=== PATIENT | female | born 1970 | race Caucasian/White ===

== ENCOUNTER 2020-01-24 22:36 | Emergency (ER) | payer OTHER ==
--- OUTSIDE RECORDS SUMMARY | 2020-01-24 22:37 | XMS REPORT | Summary of Care ---
:1970 Author Organization [facility] [place] [address] Care Team Providers Name Role Phone Daniele Brothers MD Primary Care Provider Reason for Visit Reason Comments Blurred Vision Encounter Details Date Type Department Care Team Description [facility] Ophthalmolo gy [address] [place] [address] [place] [address] [phone] Allergies No Known Allergiesdocumented as of this encounter (statuses as of 01/22/2020) Medications Medication Sig Dispensed Refills Start Date End Date Status besifloxacin Place 1 Drop into 5 mL 3 01/18/2020 Active (BESIVANCE) 0.6 % the right eye 6 ophthalmic times daily. Shake suspension well before instillation gentamicin Place 1 Drop into 10 mL 3 01/18/2020 Active (GARAMYCIN) 0.3 % the right eye every ophthalmic solution hour. tobramycin (TOBREX) INSTILL 1 GTT IN THE 0 0 Active 0.3 % ophthalmic RIGHT EYE Q 30 solution MINUTES documented as of this encounter (statuses as of 01/22/2020) Active Problems No known active problemsdocumented as of this encounter (statuses as of 01/22/2020) Social History Tobacco Use Types Packs/Day Years Used Date Current Every Day Smoker Smokeless Tobacco: Never Used Sex Assigned at Date Recorded Not on file documented as of this encounter Last Filed Vital Signs Not on filedocumented in this encounter Patient Instructions Patient InstructionsNeha Giles MD - 01/22/2020 1:10 PM CDT Besivance 3 x per day Tobramycin 4 x per day Return in about one week documented in this encounter Progress Notes Neha Giles MD - 01/22/2020 1:10 PM CDT Microbial keratitis much improved documented in this encounter Plan of Treatment Health Maintenance Due Date Last Done Comments MAMMOGRAM ANNUAL 1970 TETANUS SHOT (ADULT) 01/31/1987 HIV SCREENING 01/31/1990 CERVICAL CANCER SCREENING 3 YEAR FOLLOW UP 01/31/1993 FLU VACCINE > 6 MONTHS 12/02/2019 ZOSTER VACCINE (1 of 2) 01/31/2022 documented as of this encounter Results Not on filedocumented in this encounter Visit Diagnoses Diagnosis Keratitis - Primary Unspecified keratitis documented in this encounter Insurance Payer Benefit Plan / Subscriber ID Effective Dates Phone Addre ss Type Group [employer] OPEN ACCESS [id number] 2009-Present [address] POS HMO/POS/EPO/PPO - [place] [employer] [id number] documented as of this encounter
--- OUTSIDE RECORDS SUMMARY | 2020-01-24 22:37 | XMS REPORT | Summary of Care ---
:1970 Author Organization [facility] [place] [address] Care Team Providers Name Role Phone Unavailable Primary Care Provider Unavailable Reason for Visit Reason Comments Eye Pain Encounter Details Date Type Department Care Team Description 01/17/2020 Office Visit [facility] Neha Quispe MD Eye Pain Ophthalmology [address] [facility] [id number] [place] [address] [phone] Allergies No Known Allergiesdocumented as of this encounter (statuses as of 01/17/2020) Medications Not on filedocumented as of this encounter (statuses as of 01/17/2020) Active Problems Not on filedocumented as of this encounter (statuses as of 01/17/2020) Social History Tobacco Use Types Packs/Day Years Used Date Current Every Day Smoker Smokeless Tobacco: Never Used Sex Assigned at Date Recorded Not on file documented as of this encounter Last Filed Vital Signs Not on filedocumented in this encounter Patient Instructions Patient InstructionsNeha Giles MD - 01/17/2020 1:10 PM CDT Gentamicin one drop every hour While awake Besivance One drop 6 x per day documented in this encounter Progress Notes Neha Giles MD - 01/17/2020 1:10 PM CDT Microbial keratitis Patient States that she continues to have pain and blurred vision OD However, she is on a good regimen and likey to respond soon Will place TSCL to enhance drug delivery and to decrease surface pain documented in this encounter Plan of Treatment Name Type Priority Associated Diagnoses Order S chedule CA FIT CONTACT LENS [place] CA Charge Routine Keratitis Order ed: 01/17/2020 OCULAR SURFACE DISEASE Health Maintenance Due Date Last Done Comments [...] Addre ss Type Group [employer] OPEN ACCESS [id number] 2009-Present [id number] POS HMO/POS/EPO/PPO - [place] [employer] [phone] documented as of this encounter
--- NOTE | 2020-01-24 22:58 | EDPHYS ---
Physician Documentation [facility] Name: Elena Mcintyre Age: 49 yrs Sex: Female : 1970 Arrival Date: 01/24/2020 Time: 22:38 Bed 8 Private MD: ISAC Physician Raymundo Ernandez HPI: 01/23 22:51 This 49 yrs old Female presents to ER via EMS with complaints of vomiting cherri blood. 22:51 The patient presents with abdominal pain abdominal distention in the epigastric area, cherri in the upper abdomen. Onset: The symptoms/episode began/occurred 3 day(s) ago. The patient presents to the emergency department with nausea, vomiting, described as coffee ground in nature. Onset: The symptoms/episode began/occurred 3 day(s) ago. Possible causes: gi bleed, pancreatitis, etoh abuse. The symptoms are aggravated by nothing. The symptoms are alleviated by nothing. The patient presents to the emergency department vomiting blood, a moderate amount, coffee. Abdominal pain: located in the epigastric area, right upper quadrant and left upper quadrant. Modifying factors: The symptoms are alleviated by remaining still, the symptoms are aggravated by food, movement, PO intake. Associated signs and symptoms: Pertinent positives: dizziness at rest, dizziness when standing, vomiting. PHYSICIAN PEDIATRICIAN: 22:44 LMP N/A - Hysterectomy jb4 Historical: - Allergies: 22:44 Codeine; jb4 - Home Meds: 22:44 None [Active]; jb4 - PMHx: 22:44 Pancreatitis; jb4 - PSHx: 22:44 Hysterectomy; jb4 - Immunization history:: Adult Immunizations up to date. - Social history:: Smoking status: Patient reports the use of cigarette tobacco products, smokes one-half pack cigarettes per day, Patient/guardian denies using alcohol, street drugs. - Family history:: not pertinent. - Hospitalizations: : No recent hospitalization is reported. ROS: 22:51 Constitutional: Negative for fever, chills, and weight loss, Eyes: Negative for injury, cherri pain, redness, and discharge, ENT: Negative for injury, pain, and discharge, Neck: Negative for injury, pain, and swelling, Cardiovascular: Negative for chest pain, palpitations, and edema, Respiratory: Negative for shortness of breath, cough, wheezing, and pleuritic chest pain, Back: Negative for injury and pain, : Negative for injury, bleeding, discharge, and swelling, MS/Extremity: Negative for injury and deformity, Neuro: Negative for headache, weakness, numbness, tingling, and seizure, Psych: Negative for depression, anxiety, suicide ideation, homicidal ideation, and hallucinations, Allergy/Immunology: Negative for hives, rash, and allergies, Endocrine: Negative for neck swelling, polydipsia, polyuria, polyphagia, and marked weight changes, Hematologic/Lymphatic: Negative for swollen nodes, abnormal bleeding, and unusual bruising. 22:51 Respiratory: Positive for cough. 22:51 Abdomen/GI: Positive for abdominal pain, nausea and vomiting, abdominal cramps, abdominal distension, black/tarry stool. Exam: 22:51 Constitutional: This is a well developed, well nourished patient who is awake, alert, cherri and in no acute distress. Head/Face: Normocephalic, atraumatic. Eyes: Pupils equal round and reactive to light, extra-ocular motions intact. Lids and lashes normal. Conjunctiva and sclera are non-icteric and not injected. Cornea within normal limits. Periorbital areas with no swelling, redness, or edema. ENT: Nares patent. No nasal discharge, no septal abnormalities noted. Tympanic membranes are normal and external auditory canals are clear. Oropharynx with no redness, swelling, or masses, exudates, or evidence of obstruction, uvula midline. Mucous membranes moist. Neck: Trachea midline, no thyromegaly or masses palpated, and no cervical lymphadenopathy. Supple, full range of motion without nuchal rigidity, or vertebral point tenderness. No Meningismus. Chest/axilla: Normal chest wall appearance and motion. Nontender with no deformity. No lesions are appreciated. Cardiovascular: Regular rate and rhythm with a normal S1 and S2. No gallops, murmurs, or rubs. Normal PMI, no JVD. No pulse deficits. Respiratory: Lungs have equal breath sounds bilaterally, clear to auscultation and percussion. No rales, rhonchi or wheezes noted. No increased work of breathing, no retractions or nasal flaring. Back: No spinal tenderness. No costovertebral tenderness. Full range of motion. Pelvic Exam: Normal external genitalia. Speculum exam with closed cervical os, no discharge or bleeding noted. Bimanual exam with normal adnexa, no adnexal or cervical motion tenderness. Normal uterus. Female : Normal external genitalia. MS/ Extremity: Pulses equal, no cyanosis. Neurovascular intact. Full, normal range of motion. Neuro: Awake and alert, GCS 15, oriented to person, place, time, and situation. Cranial nerves II-XII grossly intact. Motor strength 5/5 in all extremities. Sensory grossly intact. Cerebellar exam normal. Normal gait. Psych: Awake, alert, with orientation to person, place and time. Behavior, mood, and affect are within normal limits. 22:51 Abdomen/GI: Inspection: distension, that is mild, Bowel sounds: normal, Palpation: mild abdominal tenderness, moderate abdominal tenderness, in the epigastric area, right upper quadrant and left upper quadrant, Liver: no appreciated palpable abnormalities, Hernia: not appreciated. Vital Signs: 22:42 BP 94 / 60; Pulse 101; Resp 16; Temp 98.7(TE); Pulse Ox 98% on R/A; Weight 34.02 kg jb4 (R); Height 4 ft. 9 in. (144.78 cm); Pain 8/10; 23:30 BP 91 / 58; Pulse 101; Resp 16; Pulse Ox 100% on R/A; jb4 01/24 00:00 BP 97 / 63; Pulse 98; Resp 16; Pulse Ox 100% on R/A; jb4 01:00 BP 90 / 60; Pulse 100; Resp 16; Pulse Ox 100% on R/A; jb4 02:45 BP 100 / 66; Pulse 101; Resp 16; Pulse Ox 100% on R/A; 4 01/23 22:42 Body Mass Index 16.23 (34.02 kg, 144.78 cm) [facility] MDM: 01/23 22:43 Patient medically screened. cherri 22:55 Differential diagnosis: cholecystitis, Cholelithiasis, GI Bleed, non-specific abd pain, cherri pancreatitis. Data reviewed: vital signs, nurses notes, lab test result(s), EKG, radiologic studies, CT scan, plain films. Data interpreted: monitoring manager: rate is 101 beats/min, Pulse oximetry:. Test interpretation: by ED physician or midlevel provider: ECG, plain radiologic studies. Counseling: I had a detailed discussion with the patient and/or guardian regarding: the historical points, exam findings, and any diagnostic results supporting the discharge/admit diagnosis, lab results, the need to transfer to another facility, for higher level of care, [facility] does not immediately have the required specialist. 01/23 22:50 Order name: Basic Metabolic Panel; Complete Time: 00:19 [facility] 01/23 22:50 Order name: CBC with Diff; Complete Time: 01:36 [facility] 01/23 22:50 Order name: LFT's; Complete Time: 00:19 [facility] 01/23 22:50 Order name: Magnesium; Complete Time: 00:19 [facility] 01/23 22:50 Order name: NT PRO-BNP; Complete Time: 00:19 [facility] 01/23 22:50 Order name: Troponin (emerg Dept Use Only); Complete Time: 00:19 [facility] 01/23 22:50 Order name: XRAY Chest (1 view) [facility] 01/23 22:50 Order name: Lipase; Complete Time: 00:19 [facility] 01/23 22:50 Order name: Type And Screen [facility] 01/23 22:50 Order name: CT Abd/Pelvis - IV Contrast Only [facility] 01/23 23:28 Order name: Manual Differential; Complete Time: 01:36 [facility] 01/23 22:50 Order name: EKG; Complete Time: 22:51 [facility] 01/23 22:50 Order name: Cardiac monitoring; Complete Time: 23:44 [facility] 01/23 22:50 Order name: EKG - Nurse/Tech; Complete Time: 23:44 [facility] 01/23 22:50 Order name: IV Saline Lock; Complete Time: 22:56 [facility] 01/23 22:50 Order name: Labs collected and sent; Complete Time: 22:56 [facility] 01/23 22:50 Order name: O2 Per Protocol; Complete Time: 22:56 [facility] 01/23 22:50 Order name: O2 Sat Monitoring; Complete Time: 22:56 [facility] 01/23 22:58 Order name: IV Saline Lock - Large Bore; Complete Time: 23:07 [facility] Administered Medications: 23:09 Drug: ProTONIX 40 mg Route: IVP; Site: left forearm; mg2 01/24 00:00 Follow up: Response: No adverse reaction 4 01/23 23:09 Drug: Thiamine 100 mg Route: IV; Rate: bolus; Site: left forearm; mg2 23:15 Follow up: Response: No adverse reaction; IV Status: Completed infusion jb4 23:09 Drug: Zofran (Ondansetron) 4 mg Route: IVP; Site: left forearm; [facility] 23:30 Follow up: Response: No adverse reaction; Nausea is decreased jb4 23:38 Drug: ProTONIX 8 mg/hr Route: IV; Rate: 25 ml/hr; Site: right hand; [facility] 01/24 03:02 Follow up: Response: No adverse reaction; IV Status: Infusion continued upon transfer [facility] 01/23 23:39 Drug: NS 0.9% 500 ml Route: IV; Rate: bolus; Site: right hand; [facility] 01/24 00:00 Follow up: Response: No adverse reaction; IV Status: Completed infusion [facility] 01/23 23:39 Drug: NS 0.9% 1000 ml Route: IV; Rate: 125 ml/hr; Site: right hand; [facility] 01/24 03:00 Follow up: Response: No adverse reaction; IV Status: Infusion continued upon transfer jb4 01:27 Drug: Potassium Chloride 20 mEq Route: IV; Rate: per protocol; Site: right hand; jb4 02:59 Follow up: Response: No adverse reaction; IV Status: Infusion continued upon transfer jb4 02:10 Drug: Meropenem 750 mg Route: IV; Rate: per protocol; Site: right hand; [facility] 02:59 Follow up: Response: No adverse reaction; IV Status: Infusion continued upon transfer jb4 02:45 Drug: Zofran (Ondansetron) 4 mg Route: IVP; Site: right hand; jb4 02:58 Follow up: Response: No adverse reaction; Nausea is decreased jb4 02:48 Drug: fentaNYL (PF) 25 mcg Route: IVP; Site: right hand; jb4 02:58 Follow up: Response: No adverse reaction; Pain is decreased; RASS: Alert and Calm (0) 4 02:49 Not Given (Pt transferred prior to administration): Potassium Chloride 20 mEq IV at per [facility] protocol once; administer over 1-2 hours 02:50 Not Given (Pt transferred prior to administration.): fentaNYL (PF) 25 mcg IVP once; 4 RASS on ADMIN: Combtv4, Very Agttd3, Agttd2, Rstlss1, AlertClm0, Drwsy-1, Lt Sdtn-2, Mod Sdtn-3, Dp Sdtn-4, UnArsble-5 Disposition: 01/24/20 22:57 Transfer ordered to [facility]. Diagnosis are Abdominal tenderness - enterocolitis, Gastrointestinal hemorrhage, unspecified - upper, Alcohol abuse, Anemia, unspecified, Hypokalemia, Cholecystitis, Gastritis, unspecified, with bleeding. - Reason for transfer: Higher level of care. - Accepting physician is to [facility]. - Condition is Stable. - Problem is new. - Symptoms have improved. Signatures: Dispatcher [employer] EDRaymundo Suarez MD MD cha Bryson, James RN RN jb4 Shmuel Muñoz RN RN mg2 Corrections: (The following items were deleted from the chart) 00:21 01/23 22:57 01/24/2020 22:57 Transfer ordered to [facility]. cherri Diagnosis is Abdominal tenderness; Gastrointestinal hemorrhage, unspecified - upper; Alcohol abuse. Reason for transfer: Higher level of care. Accepting physician is to [facility]. Condition is Stable. Problem is new. Symptoms have improved. [facility] 01/24 01:40 00:21 01/24/2020 22:57 Transfer ordered to [facility]. [facility] Diagnosis is Abdominal tenderness; Gastrointestinal hemorrhage, unspecified - upper; Alcohol abuse; Anemia, unspecified; Hypokalemia. Reason for transfer: Higher level of care. Accepting physician is to [facility]. Condition is Stable. Problem is new. Symptoms have improved. [facility] 03:02 01:40 01/24/2020 22:57 Transfer ordered to [facility]. jb4 Diagnosis is Abdominal tenderness - enterocolitis; Gastrointestinal hemorrhage, unspecified - upper; Alcohol abuse; Anemia, unspecified; Hypokalemia; Cholecystitis; Gastritis, unspecified, with bleeding. Reason for transfer: Higher level of care. Accepting physician is to [facility]. Condition is Stable. Problem is new. Symptoms have improved. [facility]
--- NOTE | 2020-01-24 22:58 | ER ---
Nurse's Notes [facility] Name: Elena Mcintyre Age: 49 yrs Sex: Female : 1970 Arrival Date: 01/24/2020 Time: 22:38 Bed 8 Private MD: Diagnosis: Abdominal tenderness-enterocolitis;Gastrointestinal hemorrhage, unspecified-upper;Alcohol abuse;Anemia, unspecified;Hypokalemia;Cholecystitis;Gastritis, unspecified, with bleeding Presentation: 01/23 22:42 Chief complaint: EMS states: Pt reports Vomiting up blood and having bloody stool. Pt jb4 was vomiting up what appeared to be coffee ground emesis and had black tarry stool. Coronavirus screen: Client denies travel out of the [place] in the last 14 days. At this time, the client does not indicate any symptoms associated with coronavirus-19. Ebola Screen: No symptoms or risks identified at this time. Initial Sepsis Screen: Does the patient meet any 2 criteria? HR > 90 bpm. Yes Does the patient have a suspected source of infection? No. Patient's initial sepsis screen is negative. Risk Assessment: Do you want to hurt yourself or someone else? Patient reports no desire to harm self or others. Onset of symptoms was January 24, 2020. Transition of care: patient was not received from another setting of care. 22:42 Method Of Arrival: EMS: [facility] 22:42 Acuity: ROBE 2 jb4 STUNT WOMAN: 22:44 LMP N/A - Hysterectomy jb4 Historical: - Allergies: 22:44 Codeine; jb4 - Home Meds: 22:44 None [Active]; jb4 - PMHx: 22:44 Pancreatitis; jb4 - PSHx: 22:44 Hysterectomy; jb4 - Immunization history:: Adult Immunizations up to date. - Social history:: Smoking status: Patient reports the use of cigarette tobacco products, smokes one-half pack cigarettes per day, Patient/guardian denies using alcohol, street drugs. - Family history:: not pertinent. - Hospitalizations: : No recent hospitalization is reported. Screenin:44 Abuse screen: Denies threats or abuse. Nutritional screening: No deficits noted. jb4 Tuberculosis screening: No symptoms or risk factors identified. Fall Risk None identified. Assessment: 22:44 General: Appears in no apparent distress. uncomfortable, Behavior is calm, cooperative, jb4 appropriate for age. Pain: Complains of pain in abdomen Pain radiates to back Pain currently is 8 out of 10 on a pain scale. Quality of pain is described as crampy, solid. Neuro: Level of Consciousness is awake, alert, obeys commands, Oriented to person, place, time, situation. Cardiovascular: Patient's skin is warm and dry. Respiratory: Airway is patent Respiratory effort is even, unlabored, Respiratory pattern is regular, symmetrical. GI: Reports lower abdominal pain, upper abdominal pain, bloody stool, nausea, vomiting. : No signs and/or symptoms were reported regarding the genitourinary system. EENT: No signs and/or symptoms were reported regarding the EENT system. Derm: Skin is intact, Skin is pink, warm \T\ dry. Musculoskeletal: Circulation, motion, and sensation intact. Range of motion: intact in all extremities. 23:42 Reassessment: Patient appears in no apparent distress at this time. Patient and/or jb4 family updated on plan of care and expected duration. Pain level reassessed. Patient is alert, oriented x 3, equal unlabored respirations, skin warm/dry/pink. 01/24 00:30 Reassessment: Patient appears in no apparent distress at this time. Patient and/or jb4 family updated on plan of care and expected duration. Pain level reassessed. Patient is alert, oriented x 3, equal unlabored respirations, skin warm/dry/pink. 01:30 Reassessment: Patient appears in no apparent distress at this time. Patient and/or jb4 family updated on plan of care and expected duration. Pain level reassessed. Patient is alert, oriented x 3, equal unlabored respirations, skin warm/dry/pink. 02:57 Reassessment: Patient appears in no apparent distress at this time. Patient and/or jb4 family updated on plan of care and expected duration. Pain level reassessed. Patient is alert, oriented x 3, equal unlabored respirations, skin warm/dry/pink. Pt transferred out Via [facility]. Vital Signs: 01/23 22:42 BP 94 / 60; Pulse 101; Resp 16; Temp 98.7(TE); Pulse Ox 98% on R/A; Weight 34.02 kg jb4 (R); Height 4 ft. 9 in. (144.78 cm); Pain 8/10; 23:30 BP 91 / 58; Pulse 101; Resp 16; Pulse Ox 100% on R/A; jb4 01/24 00:00 BP 97 / 63; Pulse 98; Resp 16; Pulse Ox 100% on R/A; jb4 01:00 BP 90 / 60; Pulse 100; Resp 16; Pulse Ox 100% on R/A; jb4 02:45 BP 100 / 66; Pulse 101; Resp 16; Pulse Ox 100% on R/A; jb4 01/23 22:42 Body Mass Index 16.23 (34.02 kg, 144.78 cm) jb4 ED Course: 01/23 22:38 Patient arrived in ED. am2 22:42 Chad De La Cruz, RADHA is Primary Nurse. jb4 22:43 Raymundo Ernandez MD is Attending Physician. [facility] 22:44 Triage completed. jb4 22:44 Arm band placed on right wrist. jb4 22:44 Patient has correct armband on for positive identification. Bed in low position. Call jb4 light in reach. Side rails up X 1. 22:50 Inserted saline lock: 20 gauge in left forearm, using aseptic technique. Blood mg2 collected. 22:56 Maintain EMS IV. Dressing intact. Site clean \T\ dry. Gauge \T\ site: 22 \T\RH. mg2 01/24 00:10 initiated a transfer with Shagufta Sutherland from the [facility]. 2 00:31 XRAY Chest (1 view) In Process Unspecified. EDMS 00:53 CT Abd/Pelvis - IV Contrast Only In Process Unspecified. EDMS 01:08 administrative approval given by Shagufta Sutherland/ patient has been accepted to the [address] bed 960/ Dr. Mcdowell has accepted the patient in transfer/ report to be called to [phone]. 02:58 No provider procedures requiring assistance completed. Patient transferred, IV remains jb4 in place. Administered Medications: 01/23 23:09 Drug: ProTONIX 40 mg Route: IVP; Site: left forearm; mg2 01/24 00:00 Follow up: Response: No adverse reaction jb4 01/23 23:09 Drug: Thiamine 100 mg Route: IV; Rate: bolus; Site: left forearm; mg2 23:15 Follow up: Response: No adverse reaction; IV Status: Completed infusion jb4 23:09 Drug: Zofran (Ondansetron) 4 mg Route: IVP; [place] [facility] [place] Follow up: Response: No adverse reaction; Nausea is decreased jb4 23:38 Drug: ProTONIX 8 mg/hr Route: IV; Rate: 25 ml/hr; Site: [place] hand; [facility] [place] 03:02 Follow up: Response: No adverse reaction; IV Status: Infusion continued upon transfer [facility] 01/23 23:39 Drug: NS 0.9% 500 ml Route: IV; Rate: bolus; Site: [place] [facility] [place] 00:00 Follow up: Response: No adverse reaction; IV Status: Completed infusion [facility] 01/23 23:39 Drug: NS 0.9% 1000 ml Route: IV; Rate: 125 ml/hr; Site: [place] [facility] [place] 03:00 Follow up: Response: No adverse reaction; IV Status: Infusion continued upon transfer jb4 01:27 Drug: Potassium Chloride 20 mEq Route: IV; Rate: per protocol; Site: right hand; jb4 02:59 Follow up: Response: No adverse reaction; IV Status: Infusion continued upon transfer jb4 02:10 Drug: Meropenem 750 mg Route: IV; Rate: per protocol; Site: [place] [facility] [place] 02:[place] Follow up: Response: No adverse reaction; IV Status: Infusion continued upon transfer jb4 02:45 Drug: Zofran (Ondansetron) 4 mg Route: IVP; Site: right hand; jb4 02:58 Follow up: Response: No adverse reaction; Nausea is decreased jb4 02:48 Drug: fentaNYL (PF) 25 mcg Route: IVP; Site: right hand; jb4 02:58 Follow up: Response: No adverse reaction; Pain is decreased; RASS: Alert and Calm (0) 4 02:49 Not Given (Pt transferred prior to administration): Potassium Chloride 20 mEq IV at per [facility] protocol once; administer over 1-2 hours 02:50 Not Given (Pt transferred prior to administration.): fentaNYL (PF) 25 mcg IVP once; 4 RASS on ADMIN: Combtv4, Very Agttd3, Agttd2, Rstlss1, AlertClm0, Drwsy-1, Lt Sdtn-2, Mod Sdtn-3, Dp Sdtn-4, UnArsble-5 Outcome: 01/23 22:57 ER care complete, transfer ordered by . cherri 01/24 02:58 Transferred by ground EMS [facility]. to [facility], [facility] [place], Transfer form jb4 completed. X-rays sent w/ patient. Condition: stable Discharge instructions given to patient, Instructed on the need for transfer, Demonstrated understanding of instructions. 03:02 Patient left the ED. jb4 Signatures: Dispatcher [employer] EDRaymundo Suarez MD MD cha Bryson, James, RN RN jb4 Jessica Wheeler 2 Cayetano Muñiz 2 Shmuel Muñoz RN RN mg2
[2020-01-24] MEDS ORDERED: THIAMINE 200 MG/2 ML INJ ONE (23:11)
[2020-01-24] MEDS ORDERED: NA CHLORIDE 0.9% 1,000 ML ONE (23:12)
[2020-01-24] MEDS ORDERED: NA CHLORIDE 0.9% 250 ML ONE (23:12)
[2020-01-24] MEDS ORDERED: ONDANSETRON 4 MG/2 ML VIAL ONE (23:12)
[2020-01-24] MEDS ORDERED: PANTOPRAZOLE 40 MG INJ ONE (23:12)
[2020-01-24 23:16] LABS: Absolute Lymphocytes (CBC) 0.6 K/uL (0.7-4.9); Basophils % 0.3 % (0-1.3); Lymphocytes % 6.1 % (15.3-44.8); MPV 9.2 fL (7.6-11.3); RBC Red Blood Cell Count 2.28 M/uL (3.86-4.86)
[2020-01-25 00:06] LABS: Bilirubin Direct 3.5 mg/dL (0-0.2); Bilirubin Total 4.3 mg/dL (0.2-1.0); Protein, Total 5.2 g/dL (6.4-8.2); Troponin (Emerg Dept Use Only) 0.4 ng/mL (0.0-0.045)
[2020-01-25 00:18] LABS: Potassium 2.8 mmol/L (3.5-5.1)
[2020-01-25 01:06] LABS: Blood Morphology Comment NOTED (NOT SEEN); Macrocytosis 1+; Platelet Estimate ADEQ
[2020-01-25] MEDS ORDERED: KCL 20 MEQ/100 mL IVPB 20 MEQ/100 ML BAG IV ONE (01:30)
[2020-01-25] MEDS ORDERED: FENTANYL CITR 100 MCG/2 ML ONE (02:51)
[2020-01-25] MEDS ORDERED: ONDANSETRON 4 MG/2 ML VIAL ONE (02:51)
[2020-01-25 03:34] VITALS: O2SAT 100
[2020-01-25 03:36] VITALS: TEMP 98.7
[2020-01-25 03:39] VITALS: BP 100/66
--- NOTE | 2020-01-25 08:32 | RAD REPORT ---
EXAM DESCRIPTION: RAD - Chest Single View - 01/25/2020 12:31 am CLINICAL HISTORY: ABDOMINAL DISTENTION COMPARISON: January 2014 TECHNIQUE: AP portable chest image was obtained 01/25/2020 12:31 am . FINDINGS: No focal mass or consolidation. Interstitial pattern is increased slightly over comparison . Minimal edema or infiltrate is possible. Heart and vasculature are normal. No measurable pleural ef fusion and no pneumothorax. No acute bony abnormality seen. No acute aortic findings suspected. IMPRESSION: No focal mass or consolidation. Minimal prominence of the interstitial pattern could mask early edema or infiltrate. No free air under the diaphragm.
--- NOTE | 2020-01-25 08:44 | EKG ---
Test Date: 2020-01-24 Test Time: 23:36:50 Value Engineer: MEASUREMENT RESULTS: Intervals: Rate: 95 FL: 128 QRSD: 78 QT: 390 QTc: 490 [place]: P: 62 FL: 128 QRS: 29 T: 41 INTERPRETIVE STATEMENTS: Normal sinus rhythm Cannot rule out Inferior infarct, age undetermined Abnormal ECG Compared to ECG 02/15/2014 04:35:17 No significant changes Electronically Signed On 01-25-20 08:43:05 CDT by Henrique Cabrera
--- NOTE | 2020-01-25 10:08 | RAD REPORT ---
EXAM DESCRIPTION: CT - Abdomen Pelvis W Contrast - 01/25/2020 6:37 am CLINICAL HISTORY: The patient is 49 years old and is Female; ABD PAIN TECHNIQUE: Axial computed tomography images of the abdomen and pelvis with intravenous contrast. S agittal and coronal reformatted images were created and reviewed. This CT exam was performed using one or more of the following dose reduction techniques: automated exposure control, adjustment of t he mA and/or kV according to patient size, and/or use of iterative reconstruction technique. COMPARISON: No relevant prior studies available. FINDINGS: LUNG BASES: Calcified granuloma within the lingula is present. ABDOMEN: LIVER: The liver is significantly enlarged and diffusely fatty. GALLBLADDER AND BILE DUCTS: The gallbladder is not well distended. Pericholecystic inflammation/ gallbladder wall thickening is present. PANCREAS: The pancreas is atrophic with innumerable pancreatic calcifications. SPLEEN: Several splenic granuloma are present. ADRENALS: Unremarkable. No mass. KIDNEYS AND URETERS: Unremarkable. The kidneys enhance symmetrically. No obstructing renal or ur eteral calculus is seen. No hydronephrosis or hydroureter. No perinephric fluid or stranding. STOMACH AND BOWEL: The stomach is minimally fluid filled. The majority the stomach is not well d istended. Mild diffuse mucosal thickening of the gastric body is present. A few small bowel loops i n the left upper quadrant are prominent with suggestion of mild mucosal thickening. The remainder the small bowel is normal in appearance. The colon is not well distended. Diffuse mucosal thickening is present. Scattered colonic diverticula are noted. PELVIS: APPENDIX: The appendix is normal in caliber without surrounding inflammation. BLADDER: Unremarkable. No mass. REPRODUCTIVE: The patient is status post hysterectomy. ABDOMEN and PELVIS: INTRAPERITONEAL SPACE: Unremarkable. No free air. No significant fluid collection. BONES/JOINTS: No acute fracture. SOFT TISSUES: The soft tissues are normal. VASCULATURE: Atherosclerosis of the aorta is present. No abdominal aortic aneurysm. LYMPH NODES: Unremarkable. No enlarged lymph nodes. IMPRESSION: 1. Findings concerning for gastritis. 2. Mild associated enterocolitis is also suggested. 3. Pericholecystic inflammation/gallbladder wall thickening. No calcified gallstones. If there is c linical concern for acute gallbladder pathology, findings could be further evaluated with ultrasound or HIDA scan. 4. Sequela of chronic pancreatitis. 5. Hepatic steatosis and hepatomegaly. Electronically signed by: Nicolle Campbell MD 01/25/2020 1:18 AM CDT Due to temporary technical issues with the PACS/Fluency reporting system, reports are being signed by the in house radiologist without review as a courtesy to ensure prompt reporting. The interpreting r adiologist is fully responsible for the content of the report.
== END 2020-01-25 03:02 | disposition short-term general hospital (02) ==
LOC: ER 22:36
DX: D64.9 Anemia, unspecified (principal); K29.71 Gastritis, unspecified, with bleeding; K52.9 Noninfective gastroenteritis and colitis, unspecified; F10.10 Alcohol abuse, uncomplicated; E87.6 Hypokalemia; K81.9 Cholecystitis, unspecified; F17.210 Nicotine dependence, cigarettes, uncomplicated; Z88.5 Allergy status to narcotic agent
CPT/HCPCS: 93005; 85025; 80048; 86900; 83735; 86850; 86901; 80076; 84484; 83690; 83880; 74177; 71045; 99285; Q9967; J3411; C9113; J3480; J3010; J7050; J7030; J2405 ×2

== ENCOUNTER 2021-06-23 21:37 | Emergency (ER) | payer OTHER ==
--- OUTSIDE RECORDS SUMMARY | 2021-06-23 21:43 | XMS REPORT | Continuity of Care Document ---
:1970 Author Organization [facility] t Address [address] [place] [address] Care Team Providers Name Role Phone CACHORRO ISACCHARBELCharlotte Primary Care Physician Unavailable RICHMOND Attending Clinician Unavailable DERIK CURTIS Attending Clinician Unavailable NICOLASA MALHOTRA Attending Clinician Unavailable CHERIE CARUSO Attending Clinician Unavailable VALERIA TRIMBLE Attending Clinician Unavailable Kobi KESSLER Attending Clinician Unavailable Gianna GUADARRAMA Attending Clinician Unavailable JYOTSNA DELAROSA Attending Clinician Unavailable CHERIE NARANJO Attending Clinician Unavailable JAMIE Attending Clinician Unavailable Jamie KATZ Attending Clinician Derik Curtis MD Attending Clinician Leandro Giles MD Attending Clinician RICHMOND Admitting Clinician Unavailable DERIK CURTIS Admitting Clinician Unavailable NICOLASA MALHOTRA Admitting Clinician Unavailable CHERIE GLASGOW Admitting Clinician Unavailable Payers Payer Name Policy Type Policy Number Effective Date Expiration Date S kala [employer]ET[employer] O POS [id number] 2009 QPOS 00:00:00 CDC REVIEW [id number] 2019 2019 00:00:00 00:00:00 Problems Condition Condition Condition Status Onset Resolution Last Treating Co mments Source Name Details Category Date Date Treatment Clinician Date No known No known Disease [facility] active active College problems problems of Medicin e Allergies, Adverse Reactions, Alerts Allergy Allergy Status Severity Reaction(s) Onset Inactive Treating Comm ents Source Name Type Date Date Clinician HYDROCOD Allergy Active N\\T\\V 2019-05 [facility] ONE-ACET 2-28 AMINOPHE 00:00: N 00 NO KNOWN Allergy Active SLEAkila ALLERGIE S Social History Social Habit Start Date Stop Date Quantity Comments Source Exposure to Not sure [facility] e of SARS-CoV-2 (event) Medici ne Tobacco use and 2020-04-21 2020-04-21 Never used [facility] of exposure 00:00:00 00:00:00 Medicine Sex Assigned At [birth year] [facility] of 00:00:00 00:00:00 Medicine Smoking Status Start Date Stop Date Source Current every day smoker 2020-04-21 00:00:00 [facility] Medications Ordered Filled Start Stop Current Ordering Indication Dosage Frequency Signature Comments Components Source Medication Medication Date Date Medication? Clinician (SIG) Name Name Zinc 2019-05 Yes [id number] 25mg Take 25 mg [facility] Acetate 25 2-08 by mouth Colle ge MG CAPS 00:00: daily. of 00 Medicin e duloxetine 2019-05 Yes [id number] 60mg Take 1 [facility] (CYMBALTA) 2-04 capsule by [facility] 60 MG 00:00: mouth of capsule 00 daily. Medicin e duloxetine 2019-05 Yes [id number] 60mg Take 1 [facility] (CYMBALTA) 2-04 capsule by Col [facility]ge 60 MG 00:00: mouth of capsule 00 daily. Medicin e pantoprazol 2019-05 Yes [id number] 40mg Take 1 [facility] e 1-10 Tablet by [facility] (PROTONIX) 00:00: mouth two of 40 MG 00 times Medicin tablet daily. e pantoprazol 2019-05 Yes [id number] 40mg Take 1 [facility] e 1-10 Tablet by [facility] (PROTONIX) 00:00: mouth two of 40 MG 00 times Medicin tablet daily. e Pancrelipas 2019-05 Yes [id number] 1{capsu Take 1 Guy e, 0-23 le} capsule by [facility] Lip-Prot-Am 00:00: mouth 3 of yl, (CREON) 00 times Medicin 80715 units daily e CPEP (with meals). Magnesium 2019-05 Yes [id number] 1{capsu Take 1 [facility] Oxide 400 0-23 le} capsule by [facility] ege MG CAPS 00:00: mouth of 00 daily. Medicin e Thiamine 2019-05 Yes [id number] 1{tbl} Take 1 Tab Guy Mononitrate 0-23 by mouth [facility]io ege 100 MG TABS 00:00: daily. of Medicin e potassium 2019-05 Yes [id number] 20meq Take 1 Tab [facility] chloride SA 0-23 by mouth [facility] ege (K-DUR, 00:00: daily. of KLOR-CON Medicin M20) 20 MEQ e tablet spironolact 2019-05 Yes [id number] 50mg Take 2 [facility] one 0-23 Tabs by [facility] (ALDACTONE) 00:00: mouth of 25 MG 00 daily. Medicin tablet e furosemide 2019-05 Yes [id number] 20mg Take 1 Tab [facility] (LASIX) 20 0-23 by mouth Colle ge MG tablet 00:00: daily. of Medicin e Pancrelipas 2019-05 Yes [id number] 1{capsu Take 1 Guy e, 0-23 le} capsule by [facility] Lip-Prot-Am 00:00: mouth 3 of yl, (CREON) 00 times Medicin 70425 units daily e CPEP (with meals). Magnesium 2019-05 Yes [id number] 1{capsu Take 1 [facility] Oxide 400 0-23 le} capsule by Cornelio ege MG CAPS 00:00: mouth of 00 daily. Medicin e Thiamine 2019-05 Yes [id number] 1{tbl} Take 1 Tab [facility] Mononitrate 0-23 by mouth Cornelio ege 100 MG TABS 00:00: daily. of Medicin e potassium 2019-05 Yes [id number] 20meq Take 1 Tab [facility] chloride SA 0-23 by mouth Cornelio ege (K-DUR, 00:00: daily. of KLOR-CON Medicin M20) 20 MEQ e tablet Vitamin D, 2019-05- No [id number] Take Guy Ergocalcife 0-23 10-24 50,000 Colle ge rol, 1.25 00:00: 04:59 Units by of MG ([id number] 00 :00 mouth Medicin UT) CAPS every 7 e days. folic acid 2019-05- No [id number] 1mg Take 1 Tab [facility] (FOLVITE) 1 0-23 10-24 by mouth Col lege MG tablet 00:00: 04:59 daily. of 00 :00 Medicin e Vitamin D, 2019-05- No [id number] Take Guy Ergocalcife 0-23 10-24 50,000 Colle ge rol, 1.25 00:00: 04:59 Units by of MG ([id number] 00 :00 mouth Medicin [place]) CAPS every 7 e days. folic acid 2019-05- No [id number] 1mg Take 1 Tab [facility] (FOLVITE) 1 0-23 10-24 by mouth Col lege MG tablet 00:00: 04:59 daily. of 00 :00 Medicin e spironolact 2019-05- No [id number] 50mg Take 2 [facility] one 0-23 12-15 Tabs by [facility] (ALDACTONE) 00:00: 00:00 mouth of 25 MG 00 :00 daily. Medicin tablet e furosemide 2019-05- No [id number] 20mg Take 1 Tab [facility] (LASIX) 20 0- 12-15 by mouth Cornelio ege MG tablet 00:00: 00:00 daily. of 00 :00 Medicin e duloxetine 2019-05- No [id number] 30mg Take 1 Cap [facility] (CYMBALTA) 0- 12-04 by mouth Cornelio ege 30 MG 00:00: 00:00 daily. of capsule 00 :00 Medicin e Na 2019-05 Yes [id number] [SUPREP] [facility] Sulfate-K 0-12 Take as College Sulfate-Mg 00:00: directed. of Sulf 00 Medicin (SUPREP e BOWEL PREP KIT) 17.5-3.13-1 .6 GM/177ML SOLN psyllium 2019-05 Yes [id number] 1{packe Take 1 [facility] (METAMUCIL) 0-12 t} Packet by Col lege 58.6 % 00:00: mouth of powder 00 daily. Medicin e Nicotine 2019-05 Yes [id number] 2mg Take 2 mg [facility] Polacrilex 0-12 by mouth Colle ge 2 MG LOZG 00:00: Use as of 00 Directed. Medicin Every 2 e hours as needed psyllium 2019-05 Yes [id number] 1{packe Take 1 [facility] (METAMUCIL) 0-12 t} Packet by Col lege 58.6 % 00:00: mouth of powder 00 daily. Medicin e Nicotine 2019-05 Yes [id number] 2mg Take 2 mg [facility] Polacrilex 0-12 by mouth Colle ge 2 MG LOZG 00:00: Use as of 00 Directed. Medicin Every 2 e hours as needed Na 2019-05 Yes [id number] [SUPREP] [facility] Sulfate-K 0-12 Take as College Sulfate-Mg 00:00: directed. of Sulf 00 Medicin (SUPREP e BOWEL PREP KIT) 17.5-3.13-1 .6 GM/177ML SOLN duloxetine 2019-05 Yes [id number] 30mg Take 1 Cap [facility] (CYMBALTA) 0-12 by mouth Colle ge 30 MG 00:00: daily. of capsule 00 Medicin e psyllium 2019-05 Yes [id number] 1{packe Take 1 [facility] (METAMUCIL) 0-12 t} Packet by Col lege 58.6 % 00:00: mouth of powder 00 daily. Medicin e Nicotine 2019-05 Yes [id number] 2mg Take 2 mg [facility] Polacrilex 0-12 by mouth Colle ge 2 MG LOZG 00:00: Use as of 00 Directed. Medicin Every 2 e hours as needed Na 2019-05 2020- No [id number] [SUPREP] [place] [employer] Sulfate-K 0-12 12-15 Take as Colleg e Sulfate-Mg 00:00: 00:00 directed. o f Sulf 00 :00 Medicin (SUPREP e BOWEL PREP KIT) 17.5-3.13-1 .6 GM/177ML SOLN besifloxaci 2020-0 Yes 1[drp] Place 1 [facility] n 9-17 Drop into College (BESIVANCE) 00:00: the right o f 0.6 % 00 eye 6 Medicin ophthalmic times e suspension daily. Shake well before instillati on gentamicin 2019-0 Yes 1[drp] Place 1 [facility] (GARAMYCIN) 9-17 Drop into Col lege 0.3 % 00:00: the right of ophthalmic 00 eye every Medi yazan solution hour. e besifloxaci 2020-0 Yes 1[drp] Place 1 [facility] n 9-17 Drop into [facility] (BESIVANCE) 00:00: the right o f 0.6 % 00 eye 6 Medicin ophthalmic times e suspension daily. Shake well before instillati on gentamicin 2020-0 Yes 1[drp] Place 1 [facility] (GARAMYCIN) 9-17 Drop into Col lege 0.3 % 00:00: the right of ophthalmic 00 eye every Medi yazan solution hour. e besifloxaci 2020-0 Yes 1[drp] Place 1 [facility] n 9-17 Drop into College (BESIVANCE) 00:00: the right o f 0.6 % 00 eye 6 Medicin ophthalmic times e suspension daily. Shake well before instillati on gentamicin 2020-0 Yes 1[drp] Place 1 [facility] (GARAMYCIN) 9-17 Drop into Col lege 0.3 % 00:00: the right of ophthalmic 00 eye every Medi yazan solution hour. e besifloxaci 2020-0 2020- No 1[drp] Place 1 Guy n 9-17 12-15 Drop into College (BESIVANCE) 00:00: 00:00 the right of 0.6 % 00 :00 eye 6 Medicin ophthalmic times e suspension daily. Shake well before instillati on gentamicin 2020-0 2020- No 1[drp] Place 1 [facility] (GARAMYCIN) -17 12-15 Drop into Co llege 0.3 % 00:00: 00:00 the right of ophthalmic 00 :00 eye every Medi yazan solution hour. e tobramycin 2020-0 Yes INSTILL 1 [facility] (TOBREX) 9-15 GTT IN THE Colle ge 0.3 % 00:00: RIGHT EYE of ophthalmic 00 Q 30 Medicin solution MINUTES e tobramycin 2020-0 Yes INSTILL 1 [facility] (TOBREX) 9-15 GTT IN THE Colle ge 0.3 % 00:00: RIGHT EYE of ophthalmic 00 Q 30 Medicin solution MINUTES e tobramycin 2020-0 Yes INSTILL 1 [facility] (TOBREX) 9-15 GTT IN THE Colle ge 0.3 % 00:00: RIGHT EYE of ophthalmic 00 Q 30 Medicin solution MINUTES e tobramycin 2020-0 2020- No INSTILL 1 [facility] (TOBREX) 9-15 12-15 GTT IN THE Cornelio ege 0.3 % 00:00: 00:00 RIGHT EYE of ophthalmic 00 :00 Q 30 Medicin solution MINUTES e Vital Signs Vital Name Observation Time Observation Value Comments Source WEIGHT 2020-09-11 06:00:00 34.02 kg HEIGHT 2020-09-09 10:47:00 144.8 cm WEIGHT 2020-09-09 10:47:00 33.566 kg HEIGHT 2020-04-29 07:06:00 144.8 cm WEIGHT 2020-04-29 07:06:00 36.605 kg HEIGHT 2020-02-21 13:14:00 144.8 cm WEIGHT 2020-02-21 13:14:00 35.335 kg HEIGHT 2020-01-25 00:00:00 144.7 cm WEIGHT 2020-01-25 00:00:00 35.29 kg HEIGHT 2021-06-02 14:00:00 144.8 cm WEIGHT 2021-06-02 14:00:00 36.469 kg HEIGHT 2021-06-02 14:00:00 144.8 cm WEIGHT 2021-06-02 14:00:00 36.469 kg HEIGHT 2020-11-19 10:33:00 144.8 cm WEIGHT 2020-11-19 10:33:00 33.113 kg HEIGHT 2020-11-19 10:33:00 144.8 cm WEIGHT 2020-11-19 10:33:00 33.113 kg WEIGHT 2020-11-13 12:10:00 33.339 kg WEIGHT 2020-11-13 12:10:00 33.339 kg HEIGHT 2020-10-15 10:05:00 144.8 cm WEIGHT 2020-10-15 10:05:00 33.566 kg WEIGHT 2020-09-11 06:00:00 34.02 kg HEIGHT 2020-09-09 10:47:00 144.8 cm WEIGHT 2020-09-09 10:47:00 33.566 kg HEIGHT 2020-09-06 09:42:00 144.8 cm WEIGHT 2020-09-06 09:42:00 34.882 kg HEIGHT 2020-09-06 09:42:00 144.8 cm WEIGHT 2020-09-06 09:42:00 34.882 kg HEIGHT 2020-08-14 12:46:00 144.8 cm WEIGHT 2020-08-14 12:46:00 34.746 kg HEIGHT 2020-08-14 12:46:00 144.8 cm WEIGHT 2020-08-14 12:46:00 34.746 kg HEIGHT 2020-08-13 09:42:00 144.8 cm WEIGHT 2020-08-13 09:42:00 34.473 kg HEIGHT 2020-08-13 09:42:00 144.8 cm WEIGHT 2020-08-13 09:42:00 34.473 kg HEIGHT 2020-04-29 07:06:00 144.8 cm WEIGHT 2020-04-29 07:06:00 36.605 kg HEIGHT 2020-04-25 09:33:00 144.8 cm WEIGHT 2020-04-25 09:33:00 36.288 kg HEIGHT 2020-04-25 09:33:00 144.8 cm WEIGHT 2020-04-25 09:33:00 36.288 kg Systolic blood 2020-04-16 22:02:00 98 mm[Hg] [facility] pressure Medicine Diastolic blood 2020-04-16 22:02:00 63 mm[Hg] Health system Medicine Heart rate 2020-04-16 22:02:00 71 /min [facility] of [facility] Respiratory rate 2020-04-16 22:02:00 16 /min [place] [facility] Body height 2020-04-16 22:02:00 144.8 cm [facility] Body weight 2020-04-16 22:02:00 34.02 kg [facility] BMI 2020-04-16 22:02:00 16.23 kg/m2 [facility] of Medicine WEIGHT 2020-04-09 11:57:00 35.426 kg WEIGHT 2020-04-09 11:57:00 35.426 kg Systolic blood 2020-04-05 21:26:00 103 mm[Hg] [facility] pressure Medicine Diastolic blood 2020-04-05 21:26:00 65 mm[Hg] Health system Medicine Heart rate 2020-04-05 21:26:00 86 /min [facility] ol[facility] of Medicine Body temperature 2020-04-05 21:26:00 36.56 Josy [place] [facility] Body height 2020-04-05 21:26:00 144.8 cm [facility] ol[facility] of [facility] Body weight 2020-04-05 21:26:00 33.657 kg [facility] BMI 2020-04-05 21:26:00 16.06 kg/m2 [facility] HEIGHT 2020-02-21 13:14:00 144.8 cm WEIGHT 2020-02-21 13:14:00 35.335 kg HEIGHT 2020-02-13 15:00:00 144.8 cm WEIGHT 2020-02-13 15:00:00 35.653 kg Systolic blood 2020-02-12 14:52:00 110 mm[Hg] [facility] pressure Medicine Diastolic blood 2020-02-12 14:52:00 73 mm[Hg] [facility] Heart rate 2020-02-12 14:52:00 77 /min [facility] Body temperature 2020-02-12 14:52:00 36.78 Josy [place] [facility] Body height 2020-02-12 14:52:00 149.9 cm [facility] Body weight 2020-02-12 14:52:00 36.877 kg [facility] BMI 2020-02-12 14:52:00 16.42 kg/m2 [facility] HEIGHT 2020-02-06 00:00:00 144.8 cm WEIGHT 2020-02-06 00:00:00 35.381 kg HEIGHT 2020-01-25 00:00:00 144.7 cm WEIGHT 2020-01-25 00:00:00 35.29 kg Procedures Procedure Date / Time Performing Clinician Source Performed COMPREHENSIVE METABOLIC 2020-04-05 22:50:00 Lc Curtis [facility] VITAMIN B12 2020-04-05 22:50:00 Lc Curtis [facility] Mehran ge of [facility] FERRITIN 2020-04-05 22:50:00 Lc Curtis [facility] Mehran ge of [facility] FOLATE RBC 2020-04-05 22:50:00 Lc Curtis [facility] Mehran ge of [facility] LIPASE 2020-04-05 22:50:00 Lc Curtis [facility] Mehran ge of [facility] MAGNESIUM 2020-04-05 22:50:00 Lc Curtis [facility] Mehran ge of [facility] PHOSPHORUS 2020-04-05 22:50:00 Lc Curtis [facility] Mehran narayan of [facility] CBC W/O DIFF W PLT 2020-04-05 22:50:00 Lc Curtis [facility] Co llege of [facility] PROTIME-INR 2020-04-05 22:50:00 Lc Curtis ge of [facility] ZINC 2020-04-05 22:50:00 Lc Curtis Guystanley Laurent ge of [facility] Plan of Care Planned Activity Planned Date Details Comments Source Diagnostic Test 2020-03-14 EGD W/MAC - GI DEPT Expected: [employer] Pending 00:00:00 [code = 33898] 03/14/2020, of Medicine Expires: 08/12/2020 Diagnostic Test 2020-03-14 COLONOSCOPY W MAC GI Expected: [employer] Pending 00:00:00 DEPT [code = 19812] 03/14/2020, of Medic ine Expires: 08/12/2020 Future Scheduled HIV SCREENING [code [facility] [facility] [employer] Test = HIV SCREENING] of Medicine Future Scheduled FOLATE RBC [code = [employer] Test 2283-0] of Medicine Future Scheduled ZINC [code = 5763-8] [employer] Test of Medicine Future Scheduled MAMMOGRAM ANNUAL [facility] [employer] Test [code = MAMMOGRAM of Medicin e ANNUAL] Future Scheduled TETANUS SHOT (ADULT) [employer] Test [code = TETANUS SHOT of Medi cine (ADULT)] Future Scheduled BMI FOLLOW UP PLAN [employer] Test [code = BMI FOLLOW of Medici ne UP PLAN] Future Scheduled CERVICAL CANCER [facility] Test SCREENING 3 YEAR of Medicine FOLLOW UP [code = CERVICAL CANCER SCREENING 3 YEAR FOLLOW UP] Future Scheduled FLU VACCINE > 6 [facility] C [facility]lege Test MONTHS [code = FLU of Medici ne VACCINE > 6 MONTHS] Future Scheduled CERVICAL CANCER [facility] Test SCREENING 3 YEAR of Medicine FOLLOW UP [code = CERVICAL CANCER SCREENING 3 YEAR FOLLOW UP] Future Scheduled FLU VACCINE > 6 [facility] Test MONTHS [code = FLU of Medici ne VACCINE > 6 MONTHS] Future Scheduled ZOSTER VACCINE (1 of [employer] Test 2) [code = ZOSTER of Medicin e VACCINE (1 of 2)] Future Scheduled MAMMOGRAM ANNUAL [facility] [employer] Test [code = MAMMOGRAM of Medicin e ANNUAL] Future Scheduled TETANUS SHOT (ADULT) [employer] Test [code = TETANUS SHOT of Medi cine (ADULT)] Future Scheduled BMI FOLLOW UP PLAN [employer] Test [code = BMI FOLLOW of Medici ne UP PLAN] Future Scheduled CERVICAL CANCER [facility] [employer] Test SCREENING 3 YEAR of Medicine FOLLOW UP [code = CERVICAL CANCER SCREENING 3 YEAR FOLLOW UP] Future Scheduled FLU VACCINE > 6 [facility] C [facility]lege Test MONTHS [code = FLU of Medici ne VACCINE > 6 MONTHS] Future Scheduled MAMMOGRAM ANNUAL [facility] Test [code = MAMMOGRAM of Medicin e ANNUAL] Future Scheduled TETANUS SHOT (ADULT) [employer] Test [code = TETANUS SHOT of Medi cine (ADULT)] Future Scheduled HIV SCREENING [code [facility] Test = HIV SCREENING] of Medicine Future Scheduled CERVICAL CANCER [facility] C ollege Test SCREENING 3 YEAR of Medicine FOLLOW UP [code = CERVICAL CANCER SCREENING 3 YEAR FOLLOW UP] Future Scheduled FLU VACCINE > 6 [facility] C ollege Test MONTHS [code = FLU of Medici ne VACCINE > 6 MONTHS] Future Scheduled ZOSTER VACCINE (1 of [employer] Test 2) [code = ZOSTER of Medicin e VACCINE (1 of 2)] Future Scheduled CBC W/O DIFF W PLT Ordered: [facility] r College Test [code = 6690-2] 02/12/2020 of Medicine Future Scheduled COMPREHENSIVE Ordered: [facility] Col [facility]ge Test METABOLIC PANEL 02/12/2020 of Medicine [code = 24112-1] Future Scheduled LIPASE [code = Ordered: [facility]lege Test 3040-3] 02/12/2020 of Medicine Future Scheduled URINALYSIS AUTO Ordered: [facility] C [facility]lege Test W/SCOPE [code = 02/12/2020 of Medicine 13796-5] Future Scheduled MAGNESIUM [code = Ordered: [facility] College Test 65600-6] 02/12/2020 of Medicine Future Scheduled PHOSPHORUS [code = Ordered: [facility] r College Test 2777-1] 02/12/2020 of Medicine Future Scheduled MAMMOGRAM ANNUAL [facility] Test [code = MAMMOGRAM of Medicin e ANNUAL] Future Scheduled TETANUS SHOT (ADULT) [employer] Test [code = TETANUS SHOT of Medi cine (ADULT)] Future Scheduled CERVICAL CANCER [facility] C ollege Test SCREENING 3 YEAR of Medicine FOLLOW UP [code = CERVICAL CANCER SCREENING 3 YEAR FOLLOW UP] Future Scheduled FLU VACCINE > 6 [facility] C ollege Test MONTHS [code = FLU of Medici ne VACCINE > 6 MONTHS] Future Scheduled ZOSTER VACCINE (1 of [employer] Test 2) [code = ZOSTER of Medicin e VACCINE (1 of 2)] Future Scheduled NH FIT CONTACT LENS Ordered: [facility] Test [place] OCULAR SURFACE 01/17/2020 of Medicin e DISEASE [code = 91290] Future Scheduled MAMMOGRAM ANNUAL [facility] Test [code = MAMMOGRAM of Medicin e ANNUAL] Future Scheduled TETANUS SHOT (ADULT) [facility] Test [code = TETANUS SHOT of Medi cine (ADULT)] Future Scheduled CT CHEST WO CONTRAST 1 Occurrences [employer] Test [code = 72739-9] starting of Medicine 04/16/2020 until 11/14/2020 Future Scheduled NOVEL 2019 1 Occurrences [facility] Col [facility]ge Test CORONAVIRUS(COVID-19 starting of Medi cine ),HAIR [code = U0004] 02/12/2020 until 08/12/2020 Encounters Start End Encounter Admission Attending Care Care Encounter Source Date/Time Date/Time Type Type Clinicians Facility Department ID 2021-02-08 Outpatient RICHMOND [facility] Surgery [id number] [facility] 17:38:23 [facility] 2021-02-07 Outpatient RICHMOND [facility] Surgery [id number] [facility] 18:39:59 [facility] 2021-02-05 [facility] [id number] [facility] 11:39:27 [place] 2020-01-25 Inpatient ER MARYA [facility] Internal [id number] SLE 04:06:00 [facility] Med 2021-12-01 2021-12-01 Outpatient [facility] [id number] SLE 00:00:00 00:00:00 2021-07-07 2021-07-07 Outpatient DENISE FRAGOSO [facility] [id number] [facility] 00:00:00 00:00:00 [facility] 2021-06-18 2021-06-18 Outpatient DENISE HATHAWAYCharlotte [facility] [id number] SLE 00:00:00 00:00:00 [facility] 2021-06-02 2021-06-02 Outpatient DENISE DUCLATANYACharlotte [facility] [id number] [facility] 13:37:41 13:37:41 [facility] 2021-05-27 2021-05-27 Outpatient DENISE RICHMOND, [facility] [id number] [facility] 00:00:00 00:00:00 [facility] 2021-05-27 2021-05-27 Outpatient [facility] [id number] SLE 00:00:00 00:00:00 2021-05-26 2021-05-26 Outpatient DENISE SLE SLE [id number] [facility] 00:00:00 00:00:00 2021-05-16 2021-05-16 Outpatient DENISE [facility] [id number] [facility] 00:00:00 00:00:00 2021-02-12 2021-02-12 Outpatient DENISE FRAGOSO [facility] [id number] [facility] 00:00:00 23:59:00 [facility] 2021-01-13 2021-01-13 Outpatient EL CHECO SLE SLE [id number] [facility] 00:00:00 00:00:00 PERLA 2021-01-01 2021-01-01 Outpatient DENISE FRAGOSO SLE SLE [id number] [facility] 00:00:00 00:00:00 [facility] 2020-11-19 2020-11-19 Outpatient LU[facility]LE [facility] [id number] [facility] 00:00:00 23:59:00 Jemma 2020-11-19 2020-11-19 Outpatient DENISE FRAGOSO [facility] SLE [id number] [facility] 00:00:00 00:00:00 BENI 2020-11-13 2020-11-13 Outpatient DENISE SLE SLE [id number] [facility] 00:00:00 00:00:00 2020-10-15 2020-10-15 Outpatient DENISE SLE SLE [id number] [facility] 00:00:00 00:00:00 2020-10-15 2020-10-15 Outpatient RICHMOND SLE SLE [id number] [facility] 00:00:00 00:00:00 [facility] 2020-10-15 2020-10-15 Outpatient ISAURA [facility] [id number] [facility] 00:00:00 00:00:00 LISSA 2020-09-06 2020-09-06 Outpatient DENISE [facility] [id number] [facility] 00:00:00 00:00:00 2020-08-14 2020-08-14 Outpatient EL SLE SLE [id number] [facility] 00:00:00 00:00:00 2020-08-13 2020-08-13 Outpatient DENISE FRAGOSO [facility] [id number] [facility] 00:00:00 00:00:00 BENI 2020-08-13 2020-08-13 Outpatient DENISE SLEAkila [facility]H [id number] [facility] 00:00:00 00:00:00 2020-07-18 2020-07-18 Outpatient DENISE NARANJO [facility] [id number] [facility]-07-09 2020-07-09 Outpatient [facility] [id number] [facility] 00:00:00 00:00:00 2020-07-09 2020-07-09 Outpatient DENISE NARANJO [facility] [id number] [facility] 00:00:00 00:00:00 JADEMELQUIADES 2020-06-04 2020-06-04 Outpatient DENISE FRAGOSO SLE SLE [id number] [facility] 00:00:00 00:00:00 BENI 2020-06-04 2020-06-04 Outpatient DENISE FRAGOSO SLE SLE [id number] [facility] 00:00:00 00:00:00 BENI 2020-05-21 2020-05-21 Outpatient UBALDO DINH SLE [id number] [facility] 00:00:00 00:00:00 MISTY 2020-05-14 2020-05-14 Outpatient DENISE FRAGOSO SLE SLE [id number] [facility] 00:00:00 00:00:00 BENI 2020-04-25 2020-04-25 Outpatient EL SLE SLE [id number] [facility] 00:00:00 00:00:00 2020-04-16 2020-04-17 Office VARUN Crystal [id number] [place] [address] 15:02:08 09:00:17 Visit Misty AMBULATOR [id number] College Y [id number] of [id number] [facility] yazan 315 e 2020-04-09 2020-04-09 Outpatient SLEH SLE [id number] [facility] 00:00:00 00:00:00 2020-04-05 2020-04-05 Office BREANNA Curtis [id number] [facility] 15:21:25 16:56:51 Visit Lc AMBULATOR [id number] College Derik Y [id number] of [id number] Medi yazan 325 e 2020-02-15 2020-02-15 Outpatient TEENA ESCOBAR [facility] [id number] [facility] 00:00:00 00:00:00 2020-02-14 2020-02-14 Outpatient TEENA ESCOBAR [facility] [id number] [facility] 00:00:00 00:00:00 2020-02-13 2020-02-13 Outpatient EL [facility] [id number] [facility] 00:00:00 00:00:00 2020-02-13 2020-02-13 Outpatient TEENA GUADARRAMA [facility] [id number] [facility] 00:00:00 00:00:00 2020-02-13 2020-02-13 Outpatient EL [facility] SLE [id number] [facility] 00:00:00 00:00:00 2020-02-12 2020-02-12 Office BREANNA Curtis [id number] 287 [facility] 08:55:40 16:42:25 Visit L[place] AMBULATOR [id number] College Derik Y 0.2.7.2.686 of [id number] Medi yazan 325 e 2020-02-06 2020-02-06 Outpatient DENISE FRAGOSO SLE SLE [id number] [facility] 00:00:00 00:00:00 [facility] 2020-01-22 2020-01-22 Office BREANNA Giles [id number] [facility] 13:14:03 13:24:03 Visit Neha Y AMBULATOR 350.1.13.21 College Y 0.2.7.2.686 of [id number] Medi yazan 300 e 2020-01-17 2020-01-17 Office BREANNA Giles [id number] [facility] 13:07:26 13:27:26 Visit Neha Y AMBULATOR 350.1.13.21 College Y 0.2.7.2.686 of [id number] Medi yazan 300 e Results Test Description Test Time Test Comments Results Result Comments Source ALPHA FETOPROTEIN (AFP), TUMOR MARKER 2021-06-02 17:59:31 Test Item Value Reference Range Interpretation Comme nts ALPHA-FETOPROTEIN (BEAKER) (test code = 1094) 3.0 ng/mL <10.0 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 ID - DBBASIC METABOLIC [id number] 16:08:05 Test Item Value Reference Range Interpretation Comments SODIUM (BEAKER) 139 meq/L 136-145 (test code = 381) POTASSIUM (BEAKER) 4.2 meq/L 3.5-5.1 (test code = 379) CHLORIDE (BEAKER) 109 meq/L 98-107 H (test code = 382) CO2 (BEAKER) (test 20 meq/L 22-29 L code = 355) BLOOD UREA NITROGEN 22 mg/dL 7-21 H (BEAKER) (test code = 354) CREATININE (BEAKER) 0.72 mg/dL 0.57-1.25 (test code = 358) GLUCOSE RANDOM 67 mg/dL 70-105 L (BEAKER) (test code = 652) CALCIUM (BEAKER) 9.4 mg/dL 8.4-10.2 (test code = 697) EGFR (BEAKER) (test 86 mL/min/1.73 ESTIMA KESHIA GFR IS code = 1092) sq m NOT ACCURATE CREATININE CLEARANCE IN PREDICTING GLOMERULAR FILTRATION RATE . ESTIMATED GFR I S NOT APPLICABLE FOR DIALYSIS PATIEN TS. 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 ID - DBHEPATIC FUNCTION [id number] 16:08:05 Test Item Value Reference Range Interpretation Comments TOTAL PROTEIN (BEAKER) (test code = 7.8 gm/dL 6.0-8.3 770) ALBUMIN (BEAKER) (test code = 1145) 4.3 g/dL 3.5-5.0 BILIRUBIN TOTAL (BEAKER) (test code 0.1 mg/dL 0.2-1.2 L = 377) BILIRUBIN DIRECT (BEAKER) (test 0.1 mg/dL 0.1-0.5 code = 706) ALKALINE PHOSPHATASE (BEAKER) (test 115 U/L 40-150 code = 346) AST (SGOT) (BEAKER) (test code = 65 U/L 5-34 H 353) ALT (SGPT) (BEAKER) (test code = 47 U/L 6-55 347) 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 ID - DBPROTHROMBIN [id number] 15:57:43 Test Item Value Reference Range Interpretation Comments PROTIME (BEAKER) 15.5 seconds 11.9-14.2 H (test code = 759) INR (BEAKER) (test 1.25 See_Comment [Automat ed message] code = 370) The system [employer] generated this result transmitted ref erence range: <=5.90. The reference range was not used to int erpret this result as normal/abnormal . RECOMMENDED COUMADIN/WARFARIN INR THERAPY RANGESSTANDARD DOSE: 2.0 - 3.0 Includes: PROPHYLAXIS forvenous thrombosis, systemic embolization; TREATMENT for venous thrombosis and/or pulmonary embolus.HIGH RISK: Target INR is 2.5-3.5 for patients with mechanical heart valves.CBC W/PLT COUNT & AUTO DIFFERENTIAL 2021-06-02 15:45:20 Test Item Value Reference Range Interpretation Comments WHITE BLOOD CELL COUNT (BEAKER) 7.0 K/ L 3.5-10.5 (test code = 775) RED BLOOD CELL COUNT (BEAKER) 3.81 M/ L 3.93-5.22 L (test code = 761) HEMOGLOBIN (BEAKER) (test code = 11.9 GM/DL 11.2-15.7 410) HEMATOCRIT (BEAKER) (test code = 38.6 % 34.1-44.9 411) MEAN CORPUSCULAR VOLUME (BEAKER) 101.3 fL 79.4-94.8 H (test code = 753) MEAN CORPUSCULAR HEMOGLOBIN 31.2 pg 25.6-32.2 (BEAKER) (test code = 751) MEAN CORPUSCULAR HEMOGLOBIN CONC 30.8 GM/DL 32.2-35.5 L (BEAKER) (test code = 752) RED CELL DISTRIBUTION WIDTH 14.3 % 11.7-14.4 (BEAKER) (test code = 412) PLATELET COUNT (BEAKER) (test 174 K/CU MM 150-450 code = 756) MEAN PLATELET VOLUME (BEAKER) 11.7 fL 9.4-12.3 (test code = 754) NUCLEATED RED BLOOD CELLS 0 /100 WBC 0-0 (BEAKER) (test code = 413) NEUTROPHILS RELATIVE PERCENT 67 % (BEAKER) (test code = 429) LYMPHOCYTES RELATIVE PERCENT 24 % (BEAKER) (test code = 430) MONOCYTES RELATIVE PERCENT 6 % (BEAKER) (test code = 431) EOSINOPHILS RELATIVE PERCENT 2 % (BEAKER) (test code = 432) BASOPHILS RELATIVE PERCENT 1 % (BEAKER) (test code = 437) NEUTROPHILS ABSOLUTE COUNT 4.67 K/ L 1.56-6.13 (BEAKER) (test code = 670) LYMPHOCYTES ABSOLUTE COUNT 1.65 K/ L 1.18-3.74 (BEAKER) (test code = 414) MONOCYTES ABSOLUTE COUNT (BEAKER) 0.44 K/ L 0.24-0.36 H (test code = 415) EOSINOPHILS ABSOLUTE COUNT 0.11 K/ L 0.04-0.36 (BEAKER) (test code = 416) BASOPHILS ABSOLUTE COUNT (BEAKER) 0.06 K/ L 0.01-0.08 (test code = 417) IMMATURE GRANULOCYTES-RELATIVE 0 % 0-1 PERCENT (BEAKER) (test code = 2801) HEMOGLOBIN [id number] 15:31:00 Test Item Value Reference Range Interpretation Comments HEMOGLOBIN A1C (BEAKER) (test code = 7.0 % 4.3-6.1 H 368) LIPID [id number] 11:14:00 Test Item Value Reference Range Interpretation Comments TRIGLYCERIDES (BEAKER) (test code = 111 mg/dL 540) CHOLESTEROL (BEAKER) (test code = 153 mg/dL 631) HDL CHOLESTEROL (BEAKER) (test code 60 mg/dL = 976) LDL CHOLESTEROL CALCULATED (BEAKER) 71 mg/dL (test code = 633) Triglyceride Reference Range: Low Risk <150 Borderline 150-199 High Risk 200-499 Very High Risk >=500Cholesterol Reference Range: Low Risk <200 Borderline 200-239 High Risk >240HDL Cholesterol Reference Range: Low Risk >=60 High Risk <40LDL Cholesterol Reference Range: Optimal <100 Near Optimal 100-129 Borderline 130-159 High 160-189 Very High >=190 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 MANISH BUSTAMANTE MALPHA FETOPROTEIN (AFP), TUMOR [id number] 14:22:00 Test Item Value Reference Range Interpretation Comments ALPHA-FETOPROTEIN (BEAKER) (test 4.2 ng/mL <10.0 code = 1094) 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 ID - DIMITRIOSSONBASIC METABOLIC [id number] 13:58:00 Test Item Value Reference Range Interpretation Comments SODIUM (BEAKER) 138 meq/L 136-145 (test code = 381) POTASSIUM (BEAKER) 4.3 meq/L 3.5-5.1 (test code = 379) CHLORIDE (BEAKER) 99 meq/L 98-107 (test code = 382) CO2 (BEAKER) (test 26 meq/L 22-29 code = 355) BLOOD UREA NITROGEN 23 mg/dL 7-21 H (BEAKER) (test code = 354) CREATININE (BEAKER) 0.83 mg/dL 0.57-1.25 (test code = 358) GLUCOSE RANDOM 170 mg/dL 70-105 H (BEAKER) (test code = 652) CALCIUM (BEAKER) 9.3 mg/dL 8.4-10.2 (test code = 697) EGFR (BEAKER) (test 73 mL/min/1.73 ESTIMA KESHIA GFR IS code = 1092) sq m NOT ACCURATE CREATININE CLEARANCE IN PREDICTING GLOMERULAR FILTRATION RATE . ESTIMATED GFR I S NOT APPLICABLE FOR DIALYSIS PATIEN TS. 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 ID - DIMITRIOSSONHEPATIC FUNCTION [id number] 13:58:00 Test Item Value Reference Range Interpretation Comments TOTAL PROTEIN (BEAKER) (test code = 7.9 gm/dL 6.0-8.3 770) ALBUMIN (BEAKER) (test code = 1145) 4.4 g/dL 3.5-5.0 BILIRUBIN TOTAL (BEAKER) (test code 0.2 mg/dL 0.2-1.2 = 377) BILIRUBIN DIRECT (BEAKER) (test 0.1 mg/dL 0.1-0.5 code = 706) ALKALINE PHOSPHATASE (BEAKER) (test 96 U/L 40-150 code = 346) AST (SGOT) (BEAKER) (test code = 42 U/L 5-34 H 353) ALT (SGPT) (BEAKER) (test code = 30 U/L 6-55 347) 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 ID - SEEMAPROTHROMBIN [id number] 13:40:00 Test Item Value Reference Range Interpretation Comments PROTIME (BEAKER) 13.6 seconds 11.9-14.2 (test code = 759) INR (BEAKER) (test 1.06 See_Comment [Automat ed message] code = 370) The system [employer] generated this result transmitted ref erence range: <=5.90. The reference range was not used to int erpret this result as normal/abnormal . RECOMMENDED COUMADIN/WARFARIN INR THERAPY RANGESSTANDARD DOSE: 2.0 - 3.0 Includes: PROPHYLAXIS forvenous thrombosis, systemic embolization; TREATMENT for venous thrombosis and/or pulmonary embolus.HIGH RISK: Target INR is 2.5-3.5 for patients with mechanical heart valves.CBC W/PLT COUNT & AUTO DIFFERENTIAL 2020-11-13 13:36:00 Test Item Value Reference Range Interpretation Comments WHITE BLOOD CELL COUNT (BEAKER) 5.9 K/ L 3.5-10.5 (test code = 775) RED BLOOD CELL COUNT (BEAKER) 3.82 M/ L 3.93-5.22 L (test code = 761) HEMOGLOBIN (BEAKER) (test code = 11.8 GM/DL 11.2-15.7 410) HEMATOCRIT (BEAKER) (test code = 35.9 % 34.1-44.9 411) MEAN CORPUSCULAR VOLUME (BEAKER) 94.0 fL 79.4-94.8 (test code = 753) MEAN CORPUSCULAR HEMOGLOBIN 30.9 pg 25.6-32.2 (BEAKER) (test code = 751) MEAN CORPUSCULAR HEMOGLOBIN CONC 32.9 GM/DL 32.2-35.5 (BEAKER) (test code = 752) RED CELL DISTRIBUTION WIDTH 15.4 % 11.7-14.4 H (BEAKER) (test code = 412) PLATELET COUNT (BEAKER) (test 387 K/CU MM 150-450 code = 756) MEAN PLATELET VOLUME (BEAKER) 9.8 fL 9.4-12.3 (test code = 754) NUCLEATED RED BLOOD CELLS 0 /100 WBC 0-0 (BEAKER) (test code = 413) NEUTROPHILS RELATIVE PERCENT 57 % (BEAKER) (test code = 429) LYMPHOCYTES RELATIVE PERCENT 29 % (BEAKER) (test code = 430) MONOCYTES RELATIVE PERCENT 10 % (BEAKER) (test code = 431) EOSINOPHILS RELATIVE PERCENT 2 % (BEAKER) (test code = 432) BASOPHILS RELATIVE PERCENT 1 % (BEAKER) (test code = 437) NEUTROPHILS ABSOLUTE COUNT 3.37 K/ L 1.56-6.13 (BEAKER) (test code = 670) LYMPHOCYTES ABSOLUTE COUNT 1.71 K/ L 1.18-3.74 (BEAKER) (test code = 414) MONOCYTES ABSOLUTE COUNT (BEAKER) 0.58 K/ L 0.24-0.36 H (test code = 415) EOSINOPHILS ABSOLUTE COUNT 0.10 K/ L 0.04-0.36 (BEAKER) (test code = 416) BASOPHILS ABSOLUTE COUNT (BEAKER) 0.08 K/ L 0.01-0.08 (test code = 417) IMMATURE GRANULOCYTES-RELATIVE 1 % 0-1 PERCENT (BEAKER) (test code = 2801) [id number] 12:51:00 Test Item Value Reference Range Interpretation Comments MAGNESIUM (BEAKER) 2.4 mg/dL 1.6-2.6 Specimen slightly (test code = 627) hemolyzed 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 ID - ROEL [id number] 12:51:00 Test Item Value Reference Range Interpretation Comments POTASSIUM (BEAKER) 5.1 meq/L 3.5-5.1 Specimen slightly (test code = 379) hemolyzed 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 ID - ROEL FHEMOGLOBIN AND [id number] 11:24:00 Test Item Value Reference Range Interpretation Comments HEMOGLOBIN (BEAKER) (test code = 8.8 GM/DL 11.2-15.7 L 410) HEMATOCRIT (BEAKER) (test code = 26.7 % 34.1-44.9 L 411) 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 ID - 6000BASIC METABOLIC [id number] 05:10:00 Test Item Value Reference Range Interpretation Comments SODIUM (BEAKER) 135 meq/L 136-145 L (test code = 381) POTASSIUM (BEAKER) 3.6 meq/L 3.5-5.1 (test code = 379) CHLORIDE (BEAKER) 104 meq/L 98-107 (test code = 382) CO2 (BEAKER) (test 25 meq/L 22-29 code = 355) BLOOD UREA NITROGEN 10 mg/dL 7-21 (BEAKER) (test code = 354) CREATININE (BEAKER) 0.58 mg/dL 0.57-1.25 (test code = 358) GLUCOSE RANDOM 94 mg/dL 70-105 (BEAKER) (test code = 652) CALCIUM (BEAKER) 7.7 mg/dL 8.4-10.2 L (test code = 697) EGFR (BEAKER) (test 111 mL/min/1.73 ESTIM ATED GFR IS code = 1092) sq m NOT ACCURATE CREATININE CLEARANCE IN PREDICTING GLOMERULAR FILTRATION RATE . ESTIMATED GFR I S NOT APPLICABLE FOR DIALYSIS PATIEN TS. 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 ID - GEORGINA [id number] 05:04:00 Test Item Value Reference Range Interpretation Comments MAGNESIUM (BEAKER) (test code = 1.6 mg/dL 1.6-2.6 627) 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 ID - GEORGINA WCBC (HEMOGRAM ONLY)2020-09-11 04:34:00 Test Item Value Reference Range Interpretation Comments WHITE BLOOD CELL COUNT (BEAKER) 5.9 K/ L 3.5-10.5 (test code = 775) RED BLOOD CELL COUNT (BEAKER) 2.13 M/ L 3.93-5.22 L (test code = 761) HEMOGLOBIN (BEAKER) (test code = 6.7 GM/DL 11.2-15.7 L 410) HEMATOCRIT (BEAKER) (test code = 20.7 % 34.1-44.9 L 411) MEAN CORPUSCULAR VOLUME (BEAKER) 97.2 fL 79.4-94.8 H (test code = 753) MEAN CORPUSCULAR HEMOGLOBIN 31.5 pg 25.6-32.2 (BEAKER) (test code = 751) MEAN CORPUSCULAR HEMOGLOBIN CONC 32.4 GM/DL 32.2-35.5 (BEAKER) (test code = 752) RED CELL DISTRIBUTION WIDTH 12.8 % 11.7-14.4 (BEAKER) (test code = 412) PLATELET COUNT (BEAKER) (test 204 K/CU MM 150-450 code = 756) MEAN PLATELET VOLUME (BEAKER) 10.6 fL 9.4-12.3 (test code = 754) NUCLEATED RED BLOOD CELLS 0 /100 WBC 0-0 (BEAKER) (test code = 413) BASIC METABOLIC [id number] 04:29:00 Test Item Value Reference Range Interpretation Comments SODIUM (BEAKER) 135 meq/L 136-145 L (test code = 381) POTASSIUM (BEAKER) 4.0 meq/L 3.5-5.1 (test code = 379) CHLORIDE (BEAKER) 104 meq/L 98-107 (test code = 382) CO2 (BEAKER) (test 23 meq/L 22-29 code = 355) BLOOD UREA NITROGEN 20 mg/dL 7-21 (BEAKER) (test code = 354) CREATININE (BEAKER) 0.75 mg/dL 0.57-1.25 (test code = 358) GLUCOSE RANDOM 138 mg/dL 70-105 H (BEAKER) (test code = 652) CALCIUM (BEAKER) 8.2 mg/dL 8.4-10.2 L (test code = 697) EGFR (BEAKER) (test 82 mL/min/1.73 ESTIMA KESHIA GFR IS code = 1092) sq m NOT ACCURATE CREATININE CLEARANCE IN PREDICTING GLOMERULAR FILTRATION RATE . ESTIMATED GFR I S NOT APPLICABLE FOR DIALYSIS PATIEN TS. 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 ID - ROBBY MCBC (HEMOGRAM ONLY)2020-09-10 04:05:00 Test Item Value Reference Range Interpretation Comments WHITE BLOOD CELL COUNT (BEAKER) 6.3 K/ L 3.5-10.5 (test code = 775) RED BLOOD CELL COUNT (BEAKER) 2.39 M/ L 3.93-5.22 L (test code = 761) HEMOGLOBIN (BEAKER) (test code = 7.4 GM/DL 11.2-15.7 L 410) HEMATOCRIT (BEAKER) (test code = 23.2 % 34.1-44.9 L 411) MEAN CORPUSCULAR VOLUME (BEAKER) 97.1 fL 79.4-94.8 H (test code = 753) MEAN CORPUSCULAR HEMOGLOBIN 31.0 pg 25.6-32.2 (BEAKER) (test code = 751) MEAN CORPUSCULAR HEMOGLOBIN CONC 31.9 GM/DL 32.2-35.5 L (BEAKER) (test code = 752) RED CELL DISTRIBUTION WIDTH 13.1 % 11.7-14.4 (BEAKER) (test code = 412) PLATELET COUNT (BEAKER) (test 225 K/CU MM 150-450 code = 756) MEAN PLATELET VOLUME (BEAKER) 10.4 fL 9.4-12.3 (test code = 754) NUCLEATED RED BLOOD CELLS 0 /100 WBC 0-0 (BEAKER) (test code = 413) [id number] 00:13:00 Test Item Value Reference Range Interpretation Comments ACTIVATED CLOTTING TIME 131 sec : 74 -137 seconds, (BEAKER) (test code = Baseli ne: TESTED AT 441) [place] [address] 30: 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/Techni azam ID = [id number] for CA RIAS, RACHNA [id number] 21:59:00 Test Item Value Reference Range Interpretation Comments ACTIVATED CLOTTING TIME 142 sec : 74 -137 seconds, (BEAKER) (test code = Baseli ne: TESTED AT [facility]) [place] [address] 30: 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/Techni azam ID = [id number] for CA RIAS, RACHNA [id number] 21:06:00 Test Item Value Reference Range Interpretation Comments ACTIVATED CLOTTING TIME 153 sec : 74 -137 seconds, (BEAKER) (test code = Jordoni ne: TESTED AT [facility]) [place] [address] 30: 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/Techni azam ID = [id number] for CA RIAS, RACHNA [id number] 20:00:00 Test Item Value Reference Range Interpretation Comments ACTIVATED CLOTTING TIME 180 sec : 74 -137 seconds, (BEAKER) (test code = Megha ne: TESTED AT [facility]) [place] [address] 30: 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/Techni azam ID = [id number] for CA RIAS, RACHNA CBC W/PLT COUNT & AUTO [id number] 19:49:00 Test Item Value Reference Range Interpretation Comments WHITE BLOOD CELL COUNT (BEAKER) 6.5 K/ L 3.5-10.5 (test code = 775) RED BLOOD CELL COUNT (BEAKER) 2.66 M/ L 3.93-5.22 L (test code = 761) HEMOGLOBIN (BEAKER) (test code = 8.2 GM/DL 11.2-15.7 L 410) HEMATOCRIT (BEAKER) (test code = 25.9 % 34.1-44.9 L 411) MEAN CORPUSCULAR VOLUME (BEAKER) 97.4 fL 79.4-94.8 H (test code = 753) MEAN CORPUSCULAR HEMOGLOBIN 30.8 pg 25.6-32.2 (BEAKER) (test code = 751) MEAN CORPUSCULAR HEMOGLOBIN CONC 31.7 GM/DL 32.2-35.5 L (BEAKER) (test code = 752) RED CELL DISTRIBUTION WIDTH 13.2 % 11.7-14.4 (BEAKER) (test code = 412) PLATELET COUNT (BEAKER) (test 257 K/CU MM 150-450 code = 756) MEAN PLATELET VOLUME (BEAKER) 10.6 fL 9.4-12.3 (test code = 754) NUCLEATED RED BLOOD CELLS 0 /100 WBC 0-0 (BEAKER) (test code = 413) NEUTROPHILS RELATIVE PERCENT 67 % (BEAKER) (test code = 429) LYMPHOCYTES RELATIVE PERCENT 19 % (BEAKER) (test code = 430) MONOCYTES RELATIVE PERCENT 11 % (BEAKER) (test code = 431) EOSINOPHILS RELATIVE PERCENT 2 % (BEAKER) (test code = 432) BASOPHILS RELATIVE PERCENT 1 % (BEAKER) (test code = 437) NEUTROPHILS ABSOLUTE COUNT 4.34 K/ L 1.56-6.13 (BEAKER) (test code = 670) LYMPHOCYTES ABSOLUTE COUNT 1.23 K/ L 1.18-3.74 (BEAKER) (test code = 414) MONOCYTES ABSOLUTE COUNT (BEAKER) 0.73 K/ L 0.24-0.36 H (test code = 415) EOSINOPHILS ABSOLUTE COUNT 0.12 K/ L 0.04-0.36 (BEAKER) (test code = 416) BASOPHILS ABSOLUTE COUNT (BEAKER) 0.05 K/ L 0.01-0.08 (test code = 417) IMMATURE GRANULOCYTES-RELATIVE 1 % 0-1 PERCENT (BEAKER) (test code = 2801) [id number] 18:31:00 Test Item Value Reference Range Interpretation Comments ACTIVATED CLOTTING TIME 202 sec : 74 -137 seconds, (BEAKER) (test code = Baseli ne: TESTED AT 441) [facility] [address] [place] [address] [place], [address] 30: 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/Techni azam ID = [id number] for SPEEDY HANDY [id number] 16:37:00 Test Item Value Reference Range Interpretation Comments ACTIVATED CLOTTING TIME 252 sec : 74 -137 seconds, (BEAKER) (test code = Baseli ne: TESTED AT 441) [facility] [address] [facility], [address] 30: 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/Techni azam ID = [id number] for CLARE TYSON [id number] 16:00:00 Test Item Value Reference Range Interpretation Comments ACTIVATED CLOTTING TIME 252 sec : 74 -137 seconds, (BEAKER) (test code = Baseli ne: TESTED AT 441) [facility] [address] [facility], [address] 30: 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/Techni azam ID = [id number] for CLARE TYSON COMPREHENSIVE METABOLIC [id number] 12:24:00 Test Item Value Reference Range Interpretation Comments TOTAL PROTEIN 7.5 gm/dL 6.0-8.3 (BEAKER) (test code = 770) ALBUMIN (BEAKER) 4.1 g/dL 3.5-5.0 (test code = 1145) ALKALINE PHOSPHATASE 87 U/L 40-150 (BEAKER) (test code = 346) BILIRUBIN TOTAL 0.1 mg/dL 0.2-1.2 L (BEAKER) (test code = 377) SODIUM (BEAKER) (test 137 meq/L 136-145 code = 381) POTASSIUM (BEAKER) 4.4 meq/L 3.5-5.1 (test code = 379) CHLORIDE (BEAKER) 103 meq/L 98-107 (test code = 382) CO2 (BEAKER) (test 25 meq/L 22-29 code = 355) BLOOD UREA NITROGEN 14 mg/dL 7-21 (BEAKER) (test code = 354) CREATININE (BEAKER) 0.70 mg/dL 0.57-1.25 (test code = 358) GLUCOSE RANDOM 106 mg/dL 70-105 H (BEAKER) (test code = 652) CALCIUM (BEAKER) 10.0 mg/dL 8.4-10.2 (test code = 697) AST (SGOT) (BEAKER) 32 U/L 5-34 (test code = 353) ALT (SGPT) (BEAKER) 15 U/L 6-55 (test code = 347) EGFR (BEAKER) (test 89 mL/min/1.73 ESTIMA KESHIA GFR IS code = 1092) sq m NOT ACCURATE CREATININE CLEARANCE IN PREDICTING GLOMERULAR FILTRATION RATE . ESTIMATED GFR I S NOT APPLICABLE FOR DIALYSIS PATIEN TS. 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 ID - ROEL FCBC W/PLT COUNT & AUTO [id number] 12:05:00 Test Item Value Reference Range Interpretation Comments WHITE BLOOD CELL COUNT (BEAKER) 5.5 K/ L 3.5-10.5 (test code = 775) RED BLOOD CELL COUNT (BEAKER) 3.42 M/ L 3.93-5.22 L (test code = 761) HEMOGLOBIN (BEAKER) (test code = 10.7 GM/DL 11.2-15.7 L 410) HEMATOCRIT (BEAKER) (test code = 32.2 % 34.1-44.9 L 411) MEAN CORPUSCULAR VOLUME (BEAKER) 94.2 fL 79.4-94.8 (test code = 753) MEAN CORPUSCULAR HEMOGLOBIN 31.3 pg 25.6-32.2 (BEAKER) (test code = 751) MEAN CORPUSCULAR HEMOGLOBIN CONC 33.2 GM/DL 32.2-35.5 (BEAKER) (test code = 752) RED CELL DISTRIBUTION WIDTH 13.1 % 11.7-14.4 (BEAKER) (test code = 412) PLATELET COUNT (BEAKER) (test 285 K/CU MM 150-450 code = 756) MEAN PLATELET VOLUME (BEAKER) 10.2 fL 9.4-12.3 (test code = 754) NUCLEATED RED BLOOD CELLS 0 /100 WBC 0-0 (BEAKER) (test code = 413) NEUTROPHILS RELATIVE PERCENT 59 % (BEAKER) (test code = 429) LYMPHOCYTES RELATIVE PERCENT 26 % (BEAKER) (test code = 430) MONOCYTES RELATIVE PERCENT 11 % (BEAKER) (test code = 431) EOSINOPHILS RELATIVE PERCENT 2 % (BEAKER) (test code = 432) BASOPHILS RELATIVE PERCENT 1 % (BEAKER) (test code = 437) NEUTROPHILS ABSOLUTE COUNT 3.22 K/ L 1.56-6.13 (BEAKER) (test code = 670) LYMPHOCYTES ABSOLUTE COUNT 1.44 K/ L 1.18-3.74 (BEAKER) (test code = 414) MONOCYTES ABSOLUTE COUNT (BEAKER) 0.61 K/ L 0.24-0.36 H (test code = 415) EOSINOPHILS ABSOLUTE COUNT 0.09 K/ L 0.04-0.36 (BEAKER) (test code = 416) BASOPHILS ABSOLUTE COUNT (BEAKER) 0.07 K/ L 0.01-0.08 (test code = 417) IMMATURE GRANULOCYTES-RELATIVE 0 % 0-1 PERCENT (BEAKER) (test code = 2801) SARS-COV2/RT-PCR ([facility])2020-09-07 02:13:00 Test Item Value Reference Range Interpretation Comments SARS-COV2/RT-PCR (test Negative Not Detected, Negative, code = 1580828) See external report for linked test SARS-COV-[address] [facility] (test code = 6121412) Negative result for this test determines that SARS-CoV-2 RNA was not present in the specimen above the Limit of Detection (LOD). However, Negative results do not preclude SARS-CoV-2 infection and should not be used as the sole basis for treatment or patient management decisions. Negative results mustbe combined with clinical observations, patient history, and epidemiological information. A false negative result may occur if a specimen is improperly collected, transported or handled. A false negative result should be considered if patient's recent exposures or clinical presentation indicate that COVID-19 (SARS-CoV-2) is likely and diagnostic tests for other causes of illness are negative. Re-testing should be considered in cases of suspected false negatives.The limit of detection for this assay is 100 copies/mL.This SARS CoV-2 test is a real-time RT-PCR test intended for the qualitative detection of nucleic acid from SARS-CoV-2 in a nasopharyngeal swab specimen collected from individuals susp ected of COVID-19 by their healthcare provider.This test has not been Food and Drug Administration (FDA) cleared or approved. This is a modified version of an approved Emergency Use Authorization (EUA) and is in the process of review by the FDA. Once authorized by the FDA, the issued EUA will be effective until the declaration that circumstances exist justifying the authorization of the emergency use of in vitro diagnostic tests for detection and/or diagnosis of COVID-19 is terminated under Section 564(b)(2) of the Act or the EUA is revoked under Section 564(g) of the Act.Testing was performed using the [employer] SARS-CoV-2 assay.Fact Sheet for Healthcare Providers:https://www.[employer].Telkonet/david/ MH_TMTA-TfZ-2_JJT_Unqh_Lyhww_04-264679.pdfFact Sheet for Healthcare Patients:https://www.[employer].ab miley/david/LU_KTLX-ZkJ-4_Oizloxq_Siwa_Qobtw_RT_96-448105Q0.pdfPerforming Laboratory:[facility] [place] [address] PROTHROMBIN TIME/[id number] 14:12:00 Test Item Value Reference Range Interpretation Comments PROTIME (BEAKER) 13.5 seconds 11.9-14.2 (test code = 759) INR (BEAKER) (test 1.06 See_Comment [Automat ed message] code = 370) The system [employer] generated this result transmitted ref erence range: <=5.90. The reference range was not used to int erpret this result as normal/abnormal . Effective 09/28/2018: PT Reference Range ChangeNew: 11.9-14.2 Previous: 11.7- 14.7RECOMMENDED COUMADIN/WARFARIN INR THERAPY RANGESSTANDARD DOSE: 2.0-3.0 Includes: PROPHYLAXIS for venous thrombosis, systemic embolization; TREATMENT for venous thrombosis and/or pulmonary embolus.HIGH RISK: Target INR is2.5-3.5 for patients wiht mechanical heart valves.PLATELET AGGREGATION: FUNCTION SCREEN 2020-08-13 16:36:00 Test Item Value Reference Range Interpretation Comments [id number] Theresa Zamarripa MD (BEAKER) (test code = (electronic signature) 8142) PLATELET COUNT AGG 358 K/CU MM 150-450 (BEAKER) (test code = 2656) ADP (BEAKER) (test code < % 62-100 L = 4654) PLATELET RICH 280 k/cu mm 200-300 PLASMA(BEAKER) (test code = 2134) PLATELET FUNCTION Pattern of SCREEN INTERPRETATION disaggregation present (BEAKER) (test code = with ADP which may be 4655) characteristic of P2Y12 inhibitor effect. Correlation with medication history is required. Platelet Function Screen results may be falsely low with platelet counts<75,000/cu mm.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 ID- [id number] METABOLIC [id number] 11:25:00 Test Item Value Reference Range Interpretation Comments TOTAL PROTEIN 8.2 gm/dL 6.0-8.3 (BEAKER) (test code = 770) ALBUMIN (BEAKER) 4.4 g/dL 3.5-5.0 (test code = 1145) ALKALINE PHOSPHATASE 120 U/L 40-150 (BEAKER) (test code = 346) BILIRUBIN TOTAL 0.1 mg/dL 0.2-1.2 L (BEAKER) (test code = 377) SODIUM (BEAKER) (test 141 meq/L 136-145 code = 381) POTASSIUM (BEAKER) 4.0 meq/L 3.5-5.1 (test code = 379) CHLORIDE (BEAKER) 106 meq/L 98-107 (test code = 382) CO2 (BEAKER) (test 22 meq/L 22-29 code = 355) BLOOD UREA NITROGEN 9 mg/dL 7-21 (BEAKER) (test code = 354) CREATININE (BEAKER) 0.74 mg/dL 0.57-1.25 (test code = 358) GLUCOSE RANDOM 153 mg/dL 70-105 H (BEAKER) (test code = 652) CALCIUM (BEAKER) 9.9 mg/dL 8.4-10.2 (test code = 697) AST (SGOT) (BEAKER) 53 U/L 5-34 H (test code = 353) ALT (SGPT) (BEAKER) 41 U/L 6-55 (test code = 347) EGFR (BEAKER) (test 84 mL/min/1.73 ESTIMA KESHIA GFR IS code = 1092) sq m NOT ACCURATE CREATININE CLEARANCE IN PREDICTING GLOMERULAR FILTRATION RATE . ESTIMATED GFR I S NOT APPLICABLE FOR DIALYSIS PATIEN TS. 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 ID - ROBBY MLIPID [id number] 11:25:00 Test Item Value Reference Range Interpretation Comments TRIGLYCERIDES (BEAKER) (test code = 144 mg/dL 540) CHOLESTEROL (BEAKER) (test code = 190 mg/dL 631) HDL CHOLESTEROL (BEAKER) (test code 67 mg/dL = 976) LDL CHOLESTEROL CALCULATED (BEAKER) 94 mg/dL (test code = 633) Triglyceride Reference Range: Low Risk <150 Borderline 150-199 High Risk 200-499 Very High Risk >=500Cholesterol Reference Range: Low Risk <200 Borderline 200-239 High Risk >240HDL Cholesterol Reference Range: Low Risk >=60 High Risk <40LDL Cholesterol Reference Range: Optimal <100 Near Optimal 100-129 Borderline 130-159 High 160-189 Very High >=190 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 ID - ROBBY MHEMOGLOBIN [id number] 10:52:00 Test Item Value Reference Range Interpretation Comments HEMOGLOBIN A1C (BEAKER) (test code = 6.8 % 4.3-6.1 H 368) CBC W/PLT COUNT & AUTO [id number] 10:34:00 Test Item Value Reference Range Interpretation Comments WHITE BLOOD CELL COUNT (BEAKER) 5.4 K/ L 3.5-10.5 (test code = 775) RED BLOOD CELL COUNT (BEAKER) 3.25 M/ L 3.93-5.22 L (test code = 761) HEMOGLOBIN (BEAKER) (test code = 10.1 GM/DL 11.2-15.7 L 410) HEMATOCRIT (BEAKER) (test code = 32.4 % 34.1-44.9 L 411) MEAN CORPUSCULAR VOLUME (BEAKER) 99.7 fL 79.4-94.8 H (test code = 753) MEAN CORPUSCULAR HEMOGLOBIN 31.1 pg 25.6-32.2 (BEAKER) (test code = 751) MEAN CORPUSCULAR HEMOGLOBIN CONC 31.2 GM/DL 32.2-35.5 L (BEAKER) (test code = 752) RED CELL DISTRIBUTION WIDTH 15.6 % 11.7-14.4 H (BEAKER) (test code = 412) PLATELET COUNT (BEAKER) (test 379 K/CU MM 150-450 code = 756) MEAN PLATELET VOLUME (BEAKER) 9.9 fL 9.4-12.3 (test code = 754) NUCLEATED RED BLOOD CELLS 0 /100 WBC 0-0 (BEAKER) (test code = 413) NEUTROPHILS RELATIVE PERCENT 49 % (BEAKER) (test code = 429) LYMPHOCYTES RELATIVE PERCENT 39 % (BEAKER) (test code = 430) MONOCYTES RELATIVE PERCENT 8 % (BEAKER) (test code = 431) EOSINOPHILS RELATIVE PERCENT 3 % (BEAKER) (test code = 432) BASOPHILS RELATIVE PERCENT 1 % (BEAKER) (test code = 437) NEUTROPHILS ABSOLUTE COUNT 2.65 K/ L 1.56-6.13 (BEAKER) (test code = 670) LYMPHOCYTES ABSOLUTE COUNT 2.09 K/ L 1.18-3.74 (BEAKER) (test code = 414) MONOCYTES ABSOLUTE COUNT (BEAKER) 0.43 K/ L 0.24-0.36 H (test code = 415) EOSINOPHILS ABSOLUTE COUNT 0.18 K/ L 0.04-0.36 (BEAKER) (test code = 416) BASOPHILS ABSOLUTE COUNT (BEAKER) 0.06 K/ L 0.01-0.08 (test code = 417) IMMATURE GRANULOCYTES-RELATIVE 0 % 0-1 PERCENT (BEAKER) (test code = 2801) MR, ABDOMEN, [id number] 14:34:00Alcoholic hepatitis, ? Cirrhosis, chornic pancreatitis Triple Phase Liver ProtocolUnlisted Reason for Exam - Click Yes and Enter Reason Below->YesUnlisted Reason for Exam->Alcoholic hepatitis, ? C irrhosis, chornic pancreatitis [facility] : 1970 Sex: FFINAL REPORT TECHNIQUE: MRI of the abdomen WITHOUT and WITH intraven ous contrast. INDICATION: Unlisted Reason for ExamAlcoholic hepatitis, ? Cirrhosis, chronic pancreatitis. COMPARISON: MRI from 01/26/2020. CT from 01/26/2020 FINDINGS: LOWER THORAX: Unremarkable. LIVER:The liver is enlarged. Diffuse loss of signal on out of phase imaging in the liver. There are wedge-s haped areas of arterial phase hyperenhancement the periphery of the liver which do not washout or form pseudocapsule. These are most likely perfusional. BILIARY: There are likely small stones which layer in the gallbladder. No biliary ductal dilatation or filling defect.SPLEEN: No splenomegaly.PANCREAS: No focal masses. The main pancreatic duct measures 0.67 m in diameter with a transition in the head. ADRENALS: No adrenal nodules.KIDNEYS/URETERS: No hydronephrosis or solid mass lesions. PERITONEUM/RETROPERITONEUM: No free fluid.LYMPH NODES: No lymphadenopathy.VESSELS: Moderate atherosclerosis of the infrarenal abdominal aorta. There are likely small esophageal varices. Conventional hepatic arterial anatomy. The main portal vein is patent and measures 0.8 cm in diameter. GI TRACT: No distention or wall thickening. There is metallic susceptibility artifact in the stomach which makes evaluation ofthe left hepatic lobe suboptimal BONES AND SOFT TISSUES: Unremarkable. IMPRESSION: Evaluation of the left hepatic lobe is suboptimal due to susceptibility artifact in the left hepatic lobe from metal in the stomach. 1.The main pancreatic duct is dilated with a transition in the head. No definite massis seen in this location, and this is unchanged from 01/26/2020. This is most likely due to either a pancreatic ductal stone or stricture. 2.No suspicious focal hepatic lesions. There are peripheral areas of arterial phase hyperenhancement without washout or pseudocapsule formation which are likely perfusional, LI-RADS 2. 3.The liver is enlarged with diffuse fatty infiltration. There are likely small esophageal varices which suggests portal hypertension. 4.Likely cholelithiasis. Signed: Mei Adair MDReppershing memorial hospital Verified Date/Time: 07/18/2020 14:34:27 [facility] METABOLIC [id number] 06:12:00 Test Item Value Reference Range Interpretation Comments SODIUM (BEAKER) 138 meq/L 136-145 (test code = 381) POTASSIUM (BEAKER) 4.2 meq/L 3.5-5.1 (test code = 379) CHLORIDE (BEAKER) 104 meq/L 98-107 (test code = 382) CO2 (BEAKER) (test 23 meq/L 22-29 code = 355) BLOOD UREA NITROGEN 16 mg/dL 7-21 (BEAKER) (test code = 354) CREATININE (BEAKER) 0.56 mg/dL 0.57-1.25 L (test code = 358) GLUCOSE RANDOM 123 mg/dL 70-105 H (BEAKER) (test code = 652) CALCIUM (BEAKER) 9.6 mg/dL 8.4-10.2 (test code = 697) EGFR (BEAKER) (test 116 mL/min/1.73 ESTIM ATED GFR IS code = 1092) sq m NOT ACCURATE CREATININE CLEARANCE IN PREDICTING GLOMERULAR FILTRATION RATE . ESTIMATED GFR I S NOT APPLICABLE FOR DIALYSIS PATIEN TS. 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 ID - ROBBY MCBC (HEMOGRAM ONLY)2020-04-30 05:28:00 Test Item Value Reference Range Interpretation Comments WHITE BLOOD CELL COUNT (BEAKER) 6.6 K/ L 3.5-10.5 (test code = 775) RED BLOOD CELL COUNT (BEAKER) 3.27 M/ L 3.93-5.22 L (test code = 761) HEMOGLOBIN (BEAKER) (test code = 10.1 GM/DL 11.2-15.7 L 410) HEMATOCRIT (BEAKER) (test code = 30.8 % 34.1-44.9 L 411) MEAN CORPUSCULAR VOLUME (BEAKER) 94.2 fL 79.4-94.8 (test code = 753) MEAN CORPUSCULAR HEMOGLOBIN 30.9 pg 25.6-32.2 (BEAKER) (test code = 751) MEAN CORPUSCULAR HEMOGLOBIN CONC 32.8 GM/DL 32.2-35.5 (BEAKER) (test code = 752) RED CELL DISTRIBUTION WIDTH 14.4 % 11.7-14.4 (BEAKER) (test code = 412) PLATELET COUNT (BEAKER) (test 273 K/CU MM 150-450 code = 756) MEAN PLATELET VOLUME (BEAKER) 10.5 fL 9.4-12.3 (test code = 754) NUCLEATED RED BLOOD CELLS 0 /100 WBC 0-0 (BEAKER) (test code = 413) [id number] 13:20:00 Test Item Value Reference Range Interpretation Comments ACTIVATED CLOTTING TIME 274 sec : 74 -137 seconds, (BEAKER) (test code = Baseli ne: TESTED AT 441) [facility] [address] [facility] [place], [address]: 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/Techni azam ID = [id number] for At tomasz Massiel SARS-COV2/RT-PCR ([facility])2020-04-25 14:33:00 Test Item Value Reference Range Interpretation Comments SARS-COV2/RT-PCR (test Negative Not Detected, Negative, code = 7880613) See external report for linked test SARS-COV-[address] [facility] DARLENE (test code = 6800332) Negative result for this test determines that SARS-CoV-2 RNA was not present in the specimen above the Limit of Detection (LOD). However, Negative results do not preclude SARS-CoV-2 infection and should not be used as the sole basis for treatment or patient management decisions. Negative results mustbe combined with clinical observations, patient history, and epidemiological information. A false negative result may occur if a specimen is improperly collected, transported or handled. A false negative result should be considered if patient's recent exposures or clinical presentation indicate that COVID-19 (SARS-CoV-2) is likely and diagnostic tests for other causes of illness are negative. Re-testing should be considered in cases of suspected false negatives.The limit of detection for this assay is 800 copies/mL.This SARS CoV-2 test is a real-time RT-PCR test intended for the qualitative detection of nucleic acid from SARS-CoV-2 in a nasopharyngeal swab specimen collected from individuals susp ected of COVID-19 by their healthcare provider.This test has not been Food and Drug Administration (FDA) cleared or approved. This is a modified version of an approved Emergency Use Authorization (EUA) and is in the process of review by the FDA. Once authorized by the FDA, the issued EUA will be effective until the declaration that circumstances exist justifying the authorization of the emergency use of in vitro diagnostic tests for detection and/or diagnosis of COVID-19 is terminated under Section 564(b)(2) of the Act or the EUA is revoked under Section 564(g) of the Act.Fact Sheet for Healthcare Providers:https://www.[employer].com/sites/default/files/product/documents/Fact_Shee e_BK_Pmfhdzaty_Cdci_CHCS-VkK-1.pdfFact Sheet for Healthcare Patients:https://www.[employer].com/sites/default/files/product/ documents/Xmpu_Eevps_Qikwpepd_Vvvn_RWGY-LuU-8.pdfPerforming Laboratory:[facility], [place] [address]ETEYRLONRREAR LAB [id number] 12:25:00 Test Item Value Reference Range Interpretation Comments SCAN RESULT (test code = 2631141) BASIC METABOLIC [id number] 15:16:00 Test Item Value Reference Range Interpretation Comments SODIUM (BEAKER) 136 meq/L 136-145 (test code = 381) POTASSIUM (BEAKER) 4.5 meq/L 3.5-5.1 (test code = 379) CHLORIDE (BEAKER) 100 meq/L 98-107 (test code = 382) CO2 (BEAKER) (test 27 meq/L 22-29 code = 355) BLOOD UREA NITROGEN 11 mg/dL 7-21 (BEAKER) (test code = 354) CREATININE (BEAKER) 0.58 mg/dL 0.57-1.25 (test code = 358) GLUCOSE RANDOM 91 mg/dL 70-105 (BEAKER) (test code = 652) CALCIUM (BEAKER) 9.4 mg/dL 8.4-10.2 (test code = 697) EGFR (BEAKER) (test 111 mL/min/1.73 ESTIM ATED GFR IS code = 1092) sq m NOT ACCURATE CREATININE CLEARANCE IN PREDICTING GLOMERULAR FILTRATION RATE . ESTIMATED GFR I S NOT APPLICABLE FOR DIALYSIS PATIEN TS. 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 ID - RMHEPATIC FUNCTION [id number] 15:16:00 Test Item Value Reference Range Interpretation Comments TOTAL PROTEIN (BEAKER) (test code = 7.2 gm/dL 6.0-8.3 770) ALBUMIN (BEAKER) (test code = 1145) 3.6 g/dL 3.5-5.0 BILIRUBIN TOTAL (BEAKER) (test code 0.3 mg/dL 0.2-1.2 = 377) BILIRUBIN DIRECT (BEAKER) (test 0.2 mg/dL 0.1-0.5 code = 706) ALKALINE PHOSPHATASE (BEAKER) (test 134 U/L 40-150 code = 346) AST (SGOT) (BEAKER) (test code = 58 U/L 5-34 H 353) ALT (SGPT) (BEAKER) (test code = 54 U/L 6-55 347) 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 ID - RMCBC W/PLT COUNT & AUTO [id number] 15:02:00 Test Item Value Reference Range Interpretation Comments WHITE BLOOD CELL COUNT (BEAKER) 6.4 K/ L 3.5-10.5 (test code = 775) RED BLOOD CELL COUNT (BEAKER) 3.15 M/ L 3.93-5.22 L (test code = 761) HEMOGLOBIN (BEAKER) (test code = 10.0 GM/DL 11.2-15.7 L 410) HEMATOCRIT (BEAKER) (test code = 31.3 % 34.1-44.9 L 411) MEAN CORPUSCULAR VOLUME (BEAKER) 99.4 fL 79.4-94.8 H (test code = 753) MEAN CORPUSCULAR HEMOGLOBIN 31.7 pg 25.6-32.2 (BEAKER) (test code = 751) MEAN CORPUSCULAR HEMOGLOBIN CONC 31.9 GM/DL 32.2-35.5 L (BEAKER) (test code = 752) RED CELL DISTRIBUTION WIDTH 14.5 % 11.7-14.4 H (BEAKER) (test code = 412) PLATELET COUNT (BEAKER) (test 337 K/CU MM 150-450 code = 756) MEAN PLATELET VOLUME (BEAKER) 10.4 fL 9.4-12.3 (test code = 754) NUCLEATED RED BLOOD CELLS 0 /100 WBC 0-0 (BEAKER) (test code = 413) NEUTROPHILS RELATIVE PERCENT 63 % (BEAKER) (test code = 429) LYMPHOCYTES RELATIVE PERCENT 23 % (BEAKER) (test code = 430) MONOCYTES RELATIVE PERCENT 10 % (BEAKER) (test code = 431) EOSINOPHILS RELATIVE PERCENT 3 % (BEAKER) (test code = 432) BASOPHILS RELATIVE PERCENT 1 % (BEAKER) (test code = 437) NEUTROPHILS ABSOLUTE COUNT 4.08 K/ L 1.56-6.13 (BEAKER) (test code = 670) LYMPHOCYTES ABSOLUTE COUNT 1.48 K/ L 1.18-3.74 (BEAKER) (test code = 414) MONOCYTES ABSOLUTE COUNT (BEAKER) 0.61 K/ L 0.24-0.36 H (test code = 415) EOSINOPHILS ABSOLUTE COUNT 0.19 K/ L 0.04-0.36 (BEAKER) (test code = 416) BASOPHILS ABSOLUTE COUNT (BEAKER) 0.05 K/ L 0.01-0.08 (test code = 417) IMMATURE GRANULOCYTES-RELATIVE 1 % 0-1 PERCENT (BEAKER) (test code = 2801) PROTHROMBIN [id number] 14:50:00 Test Item Value Reference Range Interpretation Comments PROTIME (BEAKER) (test code = 15.9 seconds 11.9-14.2 H 759) INR (BEAKER) (test code = 370) 1.31 <=5.90 Effective 09/28/2018: PT Reference Range ChangeNew: 11.9-14.2 Previous: 11.7- 14.7RECOMMENDED COUMADIN/WARFARIN INR THERAPY RANGESSTANDARD DOSE: 2.0-3.0 Includes: PROPHYLAXIS for venous thrombosis, systemic embolization; TREATMENT for venous thrombosis and/or pulmonary embolus.HIGH RISK: Target INR is2.5-3.5 for patients wiht mechanical heart valves.CBC W/O DIFF W [id number] 19:07:06 Test Item Value Reference Range Interpretation Comments WHITE BLOOD CELL COUNT See_Comment [Aut omated message] (test code = 81860-9) The sy stem which generated this result transmitted ref erence range: 3.5 - 10 .0 K/UL. The refer ence range was not u sed to interpret this result as normal/abnor mal. RED BLOOD CELL COUNT See_Comment L [Autom ated message] (test code = 70105-9) The sy stem which generated this result transmitted ref erence range: 3.80 - 5 .20 M/UL. The refer ence range was not u sed to interpret this result as normal/abnor mal. HEMOGLOBIN (test code = See_Comment L [Au tomated message] 718-7) The system [employer] h generated this result transmitted ref erence range: 12.0 - 1 6.0 G/DL. The refer ence range was not u sed to interpret this result as normal/abnor mal. HEMATOCRIT (test code = 30.9 % 35-46 L 88827-2) MEAN CORPUSCULAR VOLUME 96.6 fL 80-99 (test code = 45738-7) MEAN CORPUSCULAR 31.3 PG 25-34 HEMOGLOBIN (test code = 98840-4) MEAN CORPUSCULAR See_Comment [Automated message] HEMOGLOBIN CONC (test The sy stem which code = 45301-1) generated th is result transmitted ref erence range: 31.0 - 3 6.0 G/DL. The refer ence range was not u sed to interpret this result as normal/abnor mal. PLATELET COUNT (test See_Comment H Unless code = 30260-0) Otherwise In dicated, All Testing Per formed At: [facility], [address] [place] [address] Laboratory Dire ctor: Tom armijo M.D. CLIA Num mojgan [id number] Cap Accreditation N o. [Auto mated message] The sy stem which generated this result transmit keshia reference range : 130 - 400 K/UL. The reference range was not used to int erpret this result as normal/abnormal . Lab Interpretation Abnormal (test code = 48578-7) [facility]ERR[facility]IN2020-[facility] 14:14:00 Test Item Value Reference Range Interpretation Comments FERRITIN (test code = See_Comment Unless Otherwise 70777-8) Indicated, All Testing Performed At: [facility], [address] [place] [address] Laboratory Di ranjan: Tom armijo M.D. CLIA Number [id number] Cap Accreditati on No. [Auto mated message] The sy stem which generated this result transmitted ref erence range: 13 - 200 NG/ML. The reference range was not used to interpr et this result as jethro l/abnormal. [facility]ilionVITAMIN [id number] 14:14:00 Test Item Value Reference Range Interpretation Comments VITAMIN B-12 (test 649 PG/ML 200-950 Unless Otherwise code = 2132-9) Indicated, Al l Testing Performed At: [facility], [address] [place] [address] Laboratory D irector: Tom armijo M.D. CLIA Number [id number] Cap Accreditation N o. [facility]ilionPROTIME-[id number] 12:47:35 Test Item Value Reference Range Interpretation Comments PROTIME (test code = See_Comment H [Autom ated message] 3289-6) The system [employer] h generated this result transmitted ref erence range: 12.5 - 1 4.7 SECONDS. The re ference range was not u sed to interpret this result as normal/abnor mal. INR (test code = SEE BELOW CURRENT 6301-6) RECOMMENDATIONS ARE FOR AN INR OF 2.0-3 .0 FOR ALL PA TIENTS ON VITAMIN K ANTAGONISTS, EX CEPT THOSE WITH PROSTHETIC HEAR T VALVES, FOR WHO M INR OF 2.5-3.5 IS RECOMMENDED. Unless Otherwis e Indicated, All Testing Performed At: [facility], [address] [place] [address] Wheel Buffer: Tom Griggs M.D. CLIA Number [id number] Cap Accreditati on No. Lab Interpretation Abnormal (test code = 00542-0) [facility] [id number] 11:31:21 Test Item Value Reference Range Interpretation Comments MAGNESIUM (test code = See_Comment Unless Otherwise 39296-3) Indicated, All Testing Performed At: [facility], [address] [place] [address] Laboratory Di ranjan: Tom armijo M.D. CLIA Number [id number] Cap Accreditati on No. [Auto mated message] The sy stem which generated this result transmitted ref erence range: 1.6 - 2. 6 MG/DL. The reference r ivan was not used to int erpret this result as jethro l/abnormal. [facility] [id number] 11:31:21 Test Item Value Reference Range Interpretation Comments PHOSPHORUS (test code = See_Comment Unless Otherwise 2777-1) Indicated, All Testing Performed At: [facility], [address] [place] [address] Laboratory D irector: Tom armijo M.D. CLIA Number [id number] Cap Accreditation N o. [Auto mated message] The sy stem which generated this result transmitted ref erence range: 2.5 - 4. 5 MG/DL. The reference r ivan was not used to int erpret this result as normal/abnormal . [facility] PavilionLIPASE2020-12-05 11:31:21 Test Item Value Reference Range Interpretation Comments LIPASE (test code = 12 U/L 13-60 L Unless 3040-3) Otherwise Indic ated, All Testing Per formed At: [facility], [address] [place] [address] Laboratory Dire ctor: Tom armijo M.D. CLIA Num mojgan [id number] Cap Accreditation N o. [id number] Lab Interpretation Abnormal (test code = 26162-4) [facility] PavilionCOMPREHENSIVE METABOLIC [id number] 11:03:32 Test Item Value Reference Range Interpretation Comments GLUCOSE (test code = See_Comment [Autom ated message] 2345-7) The system [employer] generated this result transmitted ref erence range: 70 - 99 MG/DL. The reference r ivan was not used to interpret this result as normal/abnor mal. BLOOD UREA NITROGEN See_Comment [Automa keshia message] (test code = 3091-6) The [employer] tem which generated this result transmitted ref erence range: 6 - 20 M G/DL. The reference r ivan was not used to interpret this result as normal/abnor mal. CREATININE (test code = See_Comment [Au tomated message] 2160-0) The system [employer] generated this result transmitted ref erence range: 0.60 - 1 .30 MG/DL. The refe rence range was not u sed to interpret this result as normal/abnor mal. EGFR AA (test code = See_Comment [Autom ated message] 28440-6) The system [employer] generated this result transmitted ref erence range: >60 ML/MIN/1.73. Th e reference range was not used to int erpret this result as normal/abnormal . EGFR (test code = See_Comment [Automate d message] 98869-9) The system [employer] generated this result transmitted ref erence range: >60 ML/MIN/1.73. Th e reference range was not used to int erpret this result as normal/abnormal . BUN/CREAT RATIO (test See_Comment [Auto mated message] code = 3097-3) The system [employer] generated this result transmitted ref erence range: 6 - 28 R ATIO. The reference r ivan was not used to interpret this result as normal/abnor mal. SODIUM (test code = See_Comment [Automa keshia message] 2951-2) The system [employer] generated this result transmitted ref erence range: 133 - 14 6 MEQ/L. The refe rence range was not u sed to interpret this result as normal/abnor mal. POTASSIUM (test code = See_Comment [Aut omated message] 4183-3) The system [employer] generated this result transmitted ref erence range: 3.5 - 5. 4 MEQ/L. The refe rence range was not u sed to interpret this result as normal/abnor mal. CHLORIDE (test code = See_Comment [Auto mated message] 4085-0) The system [employer] generated this result transmitted ref erence range: 95 - 107 MEQ/L. The reference r ivan was not used to interpret this result as normal/abnor mal. CO2 (test code = See_Comment [Automated message] 1963-8) The system [employer] generated this result transmitted ref erence range: 19 - 31 MEQ/L. The reference r ivan was not used to interpret this result as normal/abnor mal. CALCIUM (test code = See_Comment [Autom ated message] 08571-9) The system [employer] generated this result transmitted ref erence range: 8.5 - 10 .5 MG/DL. The refe rence range was not u sed to interpret this result as normal/abnor mal. PROTEIN TOTAL (test See_Comment [Automa keshia message] code = 2885-2) The system [facility] generated this result transmitted ref erence range: 6.1 - 8. 3 G/DL. The reference r ivan was not used to interpret this result as normal/abnor mal. ALBUMIN (test code = See_Comment [Autom ated message] 78316-0) The system [employer] generated this result transmitted ref erence range: 3.5 - 5. 2 G/DL. The reference r ivan was not used to interpret this result as normal/abnor mal. GLOBULINS, SERUM, TOTAL See_Comment [Au tomated message] (test code = 68641-4) The sy stem which generated this result transmitted ref erence range: 1.9 - 3. 7 G/DL. The reference r ivan was not used to interpret this result as normal/abnor mal. A/G RATIO (test code = See_Comment [Aut omated message] 3009-0) The system [employer] generated this result transmitted ref erence range: 1.0 - 2. 6 RATIO. The refe rence range was not u sed to interpret this result as normal/abnor mal. BILIRUBIN TOTAL (test See_Comment [Auto mated message] code = 1975-2) The system [employer] generated this result transmitted ref erence range: <=1.2 MG /DL. The reference r ivan was not used to interpret this result as normal/abnor mal. ALKALINE PHOSPHATASE 166 U/L 40-123 H (test code = 6768-6) AST (SGOT) (test code = 162 U/L 9-40 H 1920-8) ALT (SGPT) (test code = 96 U/L 5-40 H Unless 1744-2) Otherwise Indic ated, All Testing Per formed At: [facility], [address] [place] [address] Laboratory Dire ctor: Tom armijo M.D. CLIA Num mojgan [id number] Cap Accreditation N o. 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 [address] b0Spgjr diagnosis: Juliann-Rodríguez syndrome, screening for colon cancerRight/ascending colon polypReceived in formalin labeled with the patient's name, accession number and "right/ascending colon polyp" is a 0.7 x 0.3 x 0.2 cm wells-pink polyp with organic material, which is inked blue and submitted in toto in A1. PA/pl PerformedCBC W/PLT COUNT & AUTO [id number] 15:50:00 Test Item Value Reference Range Interpretation Comments WHITE BLOOD CELL COUNT (BEAKER) 11.8 K/ L 3.5-10.5 H (test code = 775) RED BLOOD CELL COUNT (BEAKER) 2.60 M/ L 3.93-5.22 L (test code = 761) HEMOGLOBIN (BEAKER) (test code = 8.8 GM/DL 11.2-15.7 L 410) HEMATOCRIT (BEAKER) (test code = 26.9 % 34.1-44.9 L 411) MEAN CORPUSCULAR VOLUME (BEAKER) 103.5 fL 79.4-94.8 H (test code = 753) MEAN CORPUSCULAR HEMOGLOBIN 33.8 pg 25.6-32.2 H (BEAKER) (test code = 751) MEAN CORPUSCULAR HEMOGLOBIN CONC 32.7 GM/DL 32.2-35.5 (BEAKER) (test code = 752) RED CELL DISTRIBUTION WIDTH 17.0 % 11.7-14.4 H (BEAKER) (test code = 412) PLATELET COUNT (BEAKER) (test 225 K/CU MM 150-450 code = 756) MEAN PLATELET VOLUME (BEAKER) 11.0 fL 9.0-12.3 (test code = 754) NEUTROPHILS RELATIVE PERCENT 74 % (BEAKER) (test code = 429) LYMPHOCYTES RELATIVE PERCENT 15 % (BEAKER) (test code = 430) MONOCYTES RELATIVE PERCENT 9 % (BEAKER) (test code = 431) EOSINOPHILS RELATIVE PERCENT 2 % (BEAKER) (test code = 432) BASOPHILS RELATIVE PERCENT 1 % (BEAKER) (test code = 437) NEUTROPHILS ABSOLUTE COUNT 8.67 K/ L 1.56-6.13 H (BEAKER) (test code = 670) LYMPHOCYTES ABSOLUTE COUNT 1.71 K/ L 1.18-3.74 (BEAKER) (test code = 414) MONOCYTES ABSOLUTE COUNT (BEAKER) 1.03 K/ L 0.24-0.36 H (test code = 415) EOSINOPHILS ABSOLUTE COUNT 0.26 K/ L 0.04-0.36 (BEAKER) (test code = 416) BASOPHILS ABSOLUTE COUNT (BEAKER) 0.08 K/ L 0.01-0.08 (test code = 417) IMMATURE GRANULOCYTES-RELATIVE 0 % 0-1 PERCENT (BEAKER) (test code = 2801) BODY FLUID CULTURE + GRAM [id number] 12:17:00 Test Item Value Reference Range Interpretation Comments CULTURE (BEAKER) (test code No growth = 1095) GRAM STAIN RESULT (BEAKER) 1+ WBCs (test code = 1123) GRAM STAIN RESULT (BEAKER) No organisms seen (test code = 60406) PROTEIN, BODY [id number] 12:20:00 Test Item Value Reference Range Interpretation Comments PROTEIN FLUID (BEAKER) 0.8 g/dL Teste d at [facility] (test code = 579) [place] Absence of reference range indicates that normals have not been defined.Assay performance has not been validated for this type of specimen.U/S, PARACENTESIS 2020-02-14 16:13:00Give 50 ml of 25 % albumin after paracentesisLabs to be ordered:->Body Fluid Culture (w/Gram Stain, C\\T\\S)Labs to be ordered:- >Cell CountLabs to be ordered:->Glucose+LDH+ProteinReason for Exam:- >ascites/ cirrhosis [facility] : 1970 Sex: FFINAL REPORT Ultrasound guided paracentesis. Clinical History: Asci dolly. Sedation: None. Watch Parts Grinder: Shelli Rincon PA-C Computer Networking Instructor: None. Estimated Blood Loss: < 1 cc. Specimen: 2200 cc of clear yellow fluid, samples sent to laboratory. Technique: Informed consent was obtained. The risks of pain, bleeding, infection, bowel perforation, injury to adjacent structures, and adverse medication reactions were discussed with the patient. After informed consent was obtained, the patient's abdomen was scanned. The RLQ of the abdomen was selected for paracentesis. After the largest fluid pocket area was marked, and the anterior abdominal wall was evaluated with color Doppler to exclude presence of blood vessels traversing the area, the skin was prepped and draped in the usual sterile manner. After local anesthesia was achieved with 2% lidocaine, a 5 Slovenian one-step catheter was advanced into the peritoneal cavity under ultrasound guidance.After completion of drainage, the catheter was removed. There was no evidence of complication. Impression:Successful ultrasound guided paracentesis. Signed: Ramesh Mccraryort Verified Date/Time: 02/14/2020 16:13:50 Reading Location: [address] Ultrasound Reading Room Electronically signedby: RAMESH MCCRARY M.D. on 02/14/2020 04:13 PMBODY FLUID CELL COUNT WITH [id number] 11:15:00 Test Item Value Reference Range Interpretation Comments APPEARANCE FLUID (BEAKER) (test Hazy Clear A code = 510) COLOR FLUID (BEAKER) (test code = Yellow Colorless, Straw A 511) RBC FLUID (BEAKER) (test code = 14 /cu mm <=1 H 513) ADJUSTED WBC FLUID (BEAKER) (test 100 /cu mm <=5 H code = 1691) LINING CELLS (BEAKER) (test code 0 /cu mm <=1 = 1590) NEUTROPHILS FLUID (BEAKER) (test 3 % code = 1656) LYMPHS FLUID (BEAKER) (test code 49 % = 488) MONO/MACROPHAGE FLUID (BEAKER) 48 % (test code = 489) EOSINOPHILS FLUID (BEAKER) (test 0 % code = 491) BASO FLUID (BEAKER) (test code = 0 % 492) CONTAINER BODY FLUID (BEAKER) EDTA Tube (test code = 2873) MISCELLANEOUS LAB [id number] 13:22:00 Test Item Value Reference Range Interpretation Comments SCAN RESULT (test code = 4606749) COMPREHENSIVE METABOLIC [id number] 06:08:00 Test Item Value Reference Range Interpretation Comments TOTAL PROTEIN 4.9 gm/dL 6.0-8.3 L (BEAKER) (test code = 770) ALBUMIN (BEAKER) 2.3 g/dL 3.5-5.0 L (test code = 1145) ALKALINE PHOSPHATASE 293 U/L 40-150 H (BEAKER) (test code = 346) BILIRUBIN TOTAL 3.0 mg/dL 0.2-1.2 H (BEAKER) (test code = 377) SODIUM (BEAKER) (test 138 meq/L 136-145 code = 381) POTASSIUM (BEAKER) 3.4 meq/L 3.5-5.1 L (test code = 379) CHLORIDE (BEAKER) 99 meq/L 98-107 (test code = 382) CO2 (BEAKER) (test 30 meq/L 22-29 H code = 355) BLOOD UREA NITROGEN 3 mg/dL 7-21 L (BEAKER) (test code = 354) CREATININE (BEAKER) 0.49 mg/dL 0.57-1.25 L (test code = 358) GLUCOSE RANDOM 129 mg/dL 70-105 H (BEAKER) (test code = 652) CALCIUM (BEAKER) 7.6 mg/dL 8.4-10.2 L (test code = 697) AST (SGOT) (BEAKER) 238 U/L 5-34 H (test code = 353) ALT (SGPT) (BEAKER) 181 U/L 6-55 H (test code = 347) EGFR (BEAKER) (test 135 ESTIMATE D GFR IS code = 1092) mL/min/1.73 sq NOT ACCURA TE m CREATININE CLEARANCE IN PREDICTING GLOMERULAR FILTRATION RATE . ESTIMATED GFR I S NOT APPLICABLE FOR DIALYSIS PATIEN TS. 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 ID - EDASISpecimen slightly [id number] 06:05:00 Test Item Value Reference Range Interpretation Comments PHOSPHORUS (BEAKER) (test code = 3.6 mg/dL 2.3-4.7 604) 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 ID - [id number] 06:05:00 Test Item Value Reference Range Interpretation Comments MAGNESIUM (BEAKER) (test code = 1.7 mg/dL 1.6-2.6 627) 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 ID - EDASICBC W/PLT COUNT & AUTO [id number] 05:36:00 Test Item Value Reference Range Interpretation Comments WHITE BLOOD CELL COUNT (BEAKER) 8.6 K/ L 3.5-10.5 (test code = 775) RED BLOOD CELL COUNT (BEAKER) 2.52 M/ L 3.93-5.22 L (test code = 761) HEMOGLOBIN (BEAKER) (test code = 8.6 GM/DL 11.2-15.7 L 410) HEMATOCRIT (BEAKER) (test code = 24.6 % 34.1-44.9 L 411) MEAN CORPUSCULAR VOLUME (BEAKER) 97.6 fL 79.4-94.8 H (test code = 753) MEAN CORPUSCULAR HEMOGLOBIN 34.1 pg 25.6-32.2 H (BEAKER) (test code = 751) MEAN CORPUSCULAR HEMOGLOBIN CONC 35.0 GM/DL 32.2-35.5 (BEAKER) (test code = 752) RED CELL DISTRIBUTION WIDTH 18.5 % 11.7-14.4 H (BEAKER) (test code = 412) PLATELET COUNT (BEAKER) (test 136 K/CU MM 150-450 L code = 756) MEAN PLATELET VOLUME (BEAKER) 11.0 fL 9.4-12.3 (test code = 754) NUCLEATED RED BLOOD CELLS 0 /100 WBC 0-0 (BEAKER) (test code = 413) NEUTROPHILS RELATIVE PERCENT 77 % (BEAKER) (test code = 429) LYMPHOCYTES RELATIVE PERCENT 9 % (BEAKER) (test code = 430) MONOCYTES RELATIVE PERCENT 11 % (BEAKER) (test code = 431) EOSINOPHILS RELATIVE PERCENT 2 % (BEAKER) (test code = 432) BASOPHILS RELATIVE PERCENT 1 % (BEAKER) (test code = 437) NEUTROPHILS ABSOLUTE COUNT 6.68 K/ L 1.56-6.13 H (BEAKER) (test code = 670) LYMPHOCYTES ABSOLUTE COUNT 0.78 K/ L 1.18-3.74 L (BEAKER) (test code = 414) MONOCYTES ABSOLUTE COUNT (BEAKER) 0.91 K/ L 0.24-0.36 H (test code = 415) EOSINOPHILS ABSOLUTE COUNT 0.16 K/ L 0.04-0.36 (BEAKER) (test code = 416) BASOPHILS ABSOLUTE COUNT (BEAKER) 0.05 K/ L 0.01-0.08 (test code = 417) IMMATURE GRANULOCYTES-RELATIVE 1 % 0-1 PERCENT (BEAKER) (test code = 2801) T SPOT [id number] 15:24:00 Test Item Value Reference Range Interpretation Comments T-SPOT TB (BEAKER) (test code = Negative 7126) NEG CONTROL SPOT COUNT (BEAKER) 0 (test code = 1684) PANEL A SPOT (BEAKER) (test code = 0 1685) PANEL B SPOT (BEAKER) (test code = 0 1686) POS CONTROL SPOT CT (BEAKER) (test 0 code = 1687) SCAN RESULT (test code = 2717511) ANTI-NUCLEAR ANTIBODY (CONTRERAS)2020-01-29 13:52:00 Test Item Value Reference Range Interpretation Comments ANTI-NUCLEAR ANTIBODY (CONTRERAS) (BEAKER) Positive Negative A (test code = 418) Test performed by IFA method.CONTRERAS TITER AND [id number] 13:52:00 Test Item Value Reference Range Interpretation Comments CONTRERAS TITER (BEAKER) (test code = :40 1541) CONTRERAS PATTERN (BEAKER) (test code = Speckled 1781) SARS-COV2/RT-PCR ([facility])2020-01-29 10:07:00 Test Item Value Reference Range Interpretation Comments SARS-COV2/RT-PCR (test Negative Not Detected, Negative, code = 3207618) See external report for linked test SARS-COV-2 PERFORMING LAB [facility] (test code = 6782536) Negative result for this test determines that SARS-CoV-2 RNA was not present in the specimen above the Limit of Detection (LOD). However, Negative results do not preclude SARS-CoV-2 infection and should not be used as the sole basis for treatment or patient management decisions. Negative results mustbe combined with clinical observations, patient history, and epidemiological information. A false negative result may occur if a specimen is improperly collected, transported or handled. A false negative result should be considered if patient's recent exposures or clinical presentation indicate that COVID-19 (SARS-CoV-2) is likely and diagnostic tests for other causes of illness are negative. Re-testing should be considered in cases of suspected false negatives.The limit of detection for this assay is 800 copies/mL.This SARS CoV-2 test is a real-time RT-PCR test intended for the qualitative detection of nucleic acid from SARS-CoV-2 in a nasopharyngeal swab specimen collected from individuals susp ected of COVID-19 by their healthcare provider.This test has not been Food and Drug Administration (FDA) cleared or approved. This is a modified version of an approved Emergency Use Authorization (EUA) and is in the process of review by the FDA. Once authorized by the FDA, the issued EUA will be effective until the declaration that circumstances exist justifying the authorization of the emergency use of in vitro diagnostic tests for detection and/or diagnosis of COVID-19 is terminated under Section 564(b)(2) of the Act or the EUA is revoked under Section 564(g) of the Act.Fact Sheet for Healthcare Providers:https://www.[employer]/sites/default/files/product/documents/Fact_Shee t_QZ_Czuwmviqn_Cpln_KYJZ-AwX-1.pdfFact Sheet for Healthcare Patients:https://www.[employer]/sites/default/files/product/ documents/Unxu_Hfcan_Zjopjgas_Nqal_CGGF-CaS-3.pdfPerforming Laboratory:[facility], [place] [id number] 08:54:00 Test Item Value Reference Range Interpretation Comments T3 TOTAL (BEAKER) TOTAL T3 = 35 (test code = 656) ng/dLREFER ENCE RANGE = 76 - 181 ng/dLTEST PERFORMED AT [facility] COMPREHENSIVE METABOLIC [id number] 04:56:00 Test Item Value Reference Range Interpretation Comments TOTAL PROTEIN 4.9 gm/dL 6.0-8.3 L (BEAKER) (test code = 770) ALBUMIN (BEAKER) 2.4 g/dL 3.5-5.0 L (test code = 1145) ALKALINE PHOSPHATASE 328 U/L 40-150 H (BEAKER) (test code = 346) BILIRUBIN TOTAL 2.9 mg/dL 0.2-1.2 H (BEAKER) (test code = 377) SODIUM (BEAKER) (test 137 meq/L 136-145 code = 381) POTASSIUM (BEAKER) 3.8 meq/L 3.5-5.1 (test code = 379) CHLORIDE (BEAKER) 103 meq/L 98-107 (test code = 382) CO2 (BEAKER) (test 25 meq/L 22-29 code = 355) BLOOD UREA NITROGEN 4 mg/dL 7-21 L (BEAKER) (test code = 354) CREATININE (BEAKER) 0.55 mg/dL 0.57-1.25 L (test code = 358) GLUCOSE RANDOM 167 mg/dL 70-105 H (BEAKER) (test code = 652) CALCIUM (BEAKER) 7.6 mg/dL 8.4-10.2 L (test code = 697) AST (SGOT) (BEAKER) 226 U/L 5-34 H (test code = 353) ALT (SGPT) (BEAKER) 214 U/L 6-55 H (test code = 347) EGFR (BEAKER) (test 118 ESTIMATE D GFR IS code = 1092) mL/min/1.73 sq NOT ACCURA TE m CREATININE CLEARANCE IN PREDICTING GLOMERULAR FILTRATION RATE . ESTIMATED GFR I S NOT APPLICABLE FOR DIALYSIS PATIEN TS. 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 ID - HOLLY LSpecimen slightly [id number] 04:50:00 Test Item Value Reference Range Interpretation Comments PHOSPHORUS (BEAKER) (test code = 2.8 mg/dL 2.3-4.7 604) 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 ID - RACHIDJESÚS [id number] 04:50:00 Test Item Value Reference Range Interpretation Comments MAGNESIUM (BEAKER) (test code = 1.7 mg/dL 1.6-2.6 627) 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 ID - HOLLY LCBC W/PLT COUNT & AUTO [id number] 04:13:00 Test Item Value Reference Range Interpretation Comments WHITE BLOOD CELL COUNT (BEAKER) 6.6 K/ L 3.5-10.5 (test code = 775) RED BLOOD CELL COUNT (BEAKER) 2.56 M/ L 3.93-5.22 L (test code = 761) HEMOGLOBIN (BEAKER) (test code = 8.5 GM/DL 11.2-15.7 L 410) HEMATOCRIT (BEAKER) (test code = 24.5 % 34.1-44.9 L 411) MEAN CORPUSCULAR VOLUME (BEAKER) 95.7 fL 79.4-94.8 H (test code = 753) MEAN CORPUSCULAR HEMOGLOBIN 33.2 pg 25.6-32.2 H (BEAKER) (test code = 751) MEAN CORPUSCULAR HEMOGLOBIN CONC 34.7 GM/DL 32.2-35.5 (BEAKER) (test code = 752) RED CELL DISTRIBUTION WIDTH 17.8 % 11.7-14.4 H (BEAKER) (test code = 412) PLATELET COUNT (BEAKER) (test 134 K/CU MM 150-450 L code = 756) MEAN PLATELET VOLUME (BEAKER) 10.9 fL 9.4-12.3 (test code = 754) NUCLEATED RED BLOOD CELLS 0 /100 WBC 0-0 (BEAKER) (test code = 413) NEUTROPHILS RELATIVE PERCENT 73 % (BEAKER) (test code = 429) LYMPHOCYTES RELATIVE PERCENT 10 % (BEAKER) (test code = 430) MONOCYTES RELATIVE PERCENT 13 % (BEAKER) (test code = 431) EOSINOPHILS RELATIVE PERCENT 2 % (BEAKER) (test code = 432) BASOPHILS RELATIVE PERCENT 1 % (BEAKER) (test code = 437) NEUTROPHILS ABSOLUTE COUNT 4.82 K/ L 1.56-6.13 (BEAKER) (test code = 670) LYMPHOCYTES ABSOLUTE COUNT 0.67 K/ L 1.18-3.74 L (BEAKER) (test code = 414) MONOCYTES ABSOLUTE COUNT (BEAKER) 0.85 K/ L 0.24-0.36 H (test code = 415) EOSINOPHILS ABSOLUTE COUNT 0.13 K/ L 0.04-0.36 (BEAKER) (test code = 416) BASOPHILS ABSOLUTE COUNT (BEAKER) 0.06 K/ L 0.01-0.08 (test code = 417) IMMATURE GRANULOCYTES-RELATIVE 1 % 0-1 PERCENT (BEAKER) (test code = 2801) COMPREHENSIVE METABOLIC [id number] 04:26:00 Test Item Value Reference Range Interpretation Comments TOTAL PROTEIN 4.8 gm/dL 6.0-8.3 L (BEAKER) (test code = 770) ALBUMIN (BEAKER) 2.4 g/dL 3.5-5.0 L (test code = 1145) ALKALINE PHOSPHATASE 322 U/L 40-150 H (BEAKER) (test code = 346) BILIRUBIN TOTAL 3.2 mg/dL 0.2-1.2 H (BEAKER) (test code = 377) SODIUM (BEAKER) (test 136 meq/L 136-145 code = 381) POTASSIUM (BEAKER) 3.7 meq/L 3.5-5.1 (test code = 379) CHLORIDE (BEAKER) 103 meq/L 98-107 (test code = 382) CO2 (BEAKER) (test 21 meq/L 22-29 L code = 355) BLOOD UREA NITROGEN 5 mg/dL 7-21 L (BEAKER) (test code = 354) CREATININE (BEAKER) 0.60 mg/dL 0.57-1.25 (test code = 358) GLUCOSE RANDOM 109 mg/dL 70-105 H (BEAKER) (test code = 652) CALCIUM (BEAKER) 7.8 mg/dL 8.4-10.2 L (test code = 697) AST (SGOT) (BEAKER) 211 U/L 5-34 H (test code = 353) ALT (SGPT) (BEAKER) 236 U/L 6-55 H (test code = 347) EGFR (BEAKER) (test 107 ESTIMATE D GFR IS code = 1092) mL/min/1.73 sq NOT ACCURA TE m CREATININE CLEARANCE IN PREDICTING GLOMERULAR FILTRATION RATE . ESTIMATED GFR I S NOT APPLICABLE FOR DIALYSIS PATIEN TS. 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 ID - PIJESÚS LSpecimen slightly [id number] 04:00:00 Test Item Value Reference Range Interpretation Comments PHOSPHORUS (BEAKER) (test code = 2.2 mg/dL 2.3-4.7 L 604) 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 ID - PIJESÚS LPT/[id number] 03:31:00 Test Item Value Reference Range Interpretation Comments PROTIME (BEAKER) (test code = 20.7 seconds 11.9-14.2 H 759) INR (BEAKER) (test code = 370) 1.83 <=5.90 PARTIAL THROMBOPLASTIN TIME 46.1 seconds 22.5-36.0 H (BEAKER) (test code = 760) Effective 09/28/2018: PT Reference Range ChangeNew: 11.9-14.2 Previous: 11.7- 14.7RECOMMENDED COUMADIN/WARFARIN INR THERAPY RANGESSTANDARD DOSE: 2.0-3.0 Includes: PROPHYLAXIS for venous thrombosis, systemic embolization; TREATMENT for venous thrombosis and/or pulmonary embolus.HIGH RISK: Target INR is2.5-3.5 for patients wiht mechanical heart valves.PROTHROMBIN TIME/[id number] 03:30:00 Test Item Value Reference Range Interpretation Comments PROTIME (BEAKER) (test code = 20.7 seconds 11.9-14.2 H 759) INR (BEAKER) (test code = 370) 1.83 <=5.90 Effective 09/28/2018: PT Reference Range ChangeNew: 11.9-14.2 Previous: 11.7- 14.7RECOMMENDED COUMADIN/WARFARIN INR THERAPY RANGESSTANDARD DOSE: 2.0-3.0 Includes: PROPHYLAXIS for venous thrombosis, systemic embolization; TREATMENT for venous thrombosis and/or pulmonary embolus.HIGH RISK: Target INR is2.5-3.5 for patients wiht mechanical heart valves.CBC W/PLT COUNT & AUTO [id number] 03:30:00 Test Item Value Reference Range Interpretation Comments WHITE BLOOD CELL COUNT 7.2 K/ L 3.5-10.5 (BEAKER) (test code = 775) RED BLOOD CELL COUNT 2.39 M/ L 3.93-5.22 L (BEAKER) (test code = 761) HEMOGLOBIN (BEAKER) 8.1 GM/DL 11.2-15.7 L (test code = 410) HEMATOCRIT (BEAKER) 22.8 % 34.1-44.9 L (test code = 411) MEAN CORPUSCULAR 95.4 fL 79.4-94.8 H Discordant MCV VOLUME (BEAKER) (test result compared to code = 753) previous result ; clinical correl ation required. MEAN CORPUSCULAR 33.9 pg 25.6-32.2 H HEMOGLOBIN (BEAKER) (test code = 751) MEAN CORPUSCULAR 35.5 GM/DL 32.2-35.5 HEMOGLOBIN CONC (BEAKER) (test code = 752) RED CELL DISTRIBUTION 17.0 % 11.7-14.4 H WIDTH (BEAKER) (test code = 412) PLATELET COUNT 124 K/CU MM 150-450 L (BEAKER) (test code = 756) MEAN PLATELET VOLUME 10.4 fL 9.4-12.3 (BEAKER) (test code = 754) NUCLEATED RED BLOOD 0 /100 WBC 0-0 CELLS (BEAKER) (test code = 413) NEUTROPHILS RELATIVE 70 % PERCENT (BEAKER) (test code = 429) LYMPHOCYTES RELATIVE 14 % PERCENT (BEAKER) (test code = 430) MONOCYTES RELATIVE 12 % PERCENT (BEAKER) (test code = 431) EOSINOPHILS RELATIVE 3 % PERCENT (BEAKER) (test code = 432) BASOPHILS RELATIVE 1 % PERCENT (BEAKER) (test code = 437) NEUTROPHILS ABSOLUTE 5.03 K/ L 1.56-6.13 COUNT (BEAKER) (test code = 670) LYMPHOCYTES ABSOLUTE 0.98 K/ L 1.18-3.74 L COUNT (BEAKER) (test code = 414) MONOCYTES ABSOLUTE 0.87 K/ L 0.24-0.36 H COUNT (BEAKER) (test code = 415) EOSINOPHILS ABSOLUTE 0.19 K/ L 0.04-0.36 COUNT (BEAKER) (test code = 416) BASOPHILS ABSOLUTE 0.05 K/ L 0.01-0.08 COUNT (BEAKER) (test code = 417) IMMATURE 1 % 0-1 GRANULOCYTES-RELATIVE PERCENT (BEAKER) (test code = 2801) MR, ABDOMEN, [id number] 10:14:00Unlisted Reason for Exam - Click Yes and Enter Reason Below->YesUnlisted Reason for Exam->LIVER TRANSPLANT EVALUATIONFINAL REPORT TECHNIQUE: MRI of the abdomen WITHOUT and WITH intravenous contrast. INDICATION: 49-year-old woman for liver transplant evaluation. COMPARISON: None. FINDINGS: LOWER THORAX: Unremarkable. LIVER: Decreased signal intensity of the liver on opposed phase imaging, consi stent with hepatic steatosis. No suspicious liver lesion. BILIARY: Sludge in the gallbladder. Mild gallbladder wall thickening, nonspecific finding in the setting of liver disease/ascites. No biliary ductal dilatation or filling defect.SPLEEN: No splenomegaly.PANCREAS: Atrophic pancreas contains multiple calcifications. Mildly prominent pancreatic duct measures up to 0.5 cm in diameter. ADRENALS: No adrenal nodule.KIDNEYS/URETERS: No hydronephrosis or mass. PERITONEUM/RETROPERITONEUM: Small volume ascites.LYMPH NODES: No lymphadenopathy.VESSELS: Portal system and hepatic veins are patent. Main portal vein measures 1.2 cm in diameter. Conventional hepatic arterial anatomy. Abdominal aorta is normalin caliber. GI TRACT: Apparent wall thickening of the stomach, small bowel, and right colon. No bowel obstruction. BONES AND SOFT TISSUES: Unremarkable. IMPRESSION:Hepatic steatosis. No suspicious liver lesion. Small volume ascites. Atrophic pancreas with calcifications, consistent with chronic pancreatitis. Mildly prominent pancreatic duct may be secondary to duct stricture or calculus. Apparent wall thickening of the stomach, small bowel, and right colon, which is nonspecific in the setting of ascites. Infectious/inflammatory etiology cannot be excluded in the correct clinical setting. Signed: Gwen Plasencia MDReport Verified Date/Time: 01/27/2020 10:14:14 Reading Location: [facility] C013Y CT Body Reading Room COMPREHENSIVE METABOLIC [id number] 07:25:00 Test Item Value Reference Range Interpretation Comments TOTAL PROTEIN 4.8 gm/dL 6.0-8.3 L (BEAKER) (test code = 770) ALBUMIN (BEAKER) 2.4 g/dL 3.5-5.0 L (test code = 1145) ALKALINE PHOSPHATASE 341 U/L 40-150 H (BEAKER) (test code = 346) BILIRUBIN TOTAL 3.8 mg/dL 0.2-1.2 H (BEAKER) (test code = 377) SODIUM (BEAKER) (test 139 meq/L 136-145 code = 381) POTASSIUM (BEAKER) 3.1 meq/L 3.5-5.1 L (test code = 379) CHLORIDE (BEAKER) 102 meq/L 98-107 (test code = 382) CO2 (BEAKER) (test 22 meq/L 22-29 code = 355) BLOOD UREA NITROGEN 10 mg/dL 7-21 (BEAKER) (test code = 354) CREATININE (BEAKER) 0.57 mg/dL 0.57-1.25 (test code = 358) GLUCOSE RANDOM 97 mg/dL 70-105 (BEAKER) (test code = 652) CALCIUM (BEAKER) 7.6 mg/dL 8.4-10.2 L (test code = 697) AST (SGOT) (BEAKER) 368 U/L 5-34 H (test code = 353) ALT (SGPT) (BEAKER) 321 U/L 6-55 H (test code = 347) EGFR (BEAKER) (test 114 ESTIMATE D GFR IS code = 1092) mL/min/1.73 sq NOT ACCURA TE m CREATININE CLEARANCE IN PREDICTING GLOMERULAR FILTRATION RATE . ESTIMATED GFR I S NOT APPLICABLE FOR DIALYSIS PATIEN TS. 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 ID - EDASISpecimen slightly ictericCBC W/PLT COUNT & AUTO [id number] 06:32:00 Test Item Value Reference Range Interpretation Comments WHITE BLOOD CELL COUNT (BEAKER) 7.5 K/ L 3.5-10.5 (test code = 775) RED BLOOD CELL COUNT (BEAKER) 1.77 M/ L 3.93-5.22 L (test code = 761) HEMOGLOBIN (BEAKER) (test code = 6.3 GM/DL 11.2-15.7 L 410) HEMATOCRIT (BEAKER) (test code = 18.1 % 34.1-44.9 L 411) MEAN CORPUSCULAR VOLUME (BEAKER) 102.3 fL 79.4-94.8 H (test code = 753) MEAN CORPUSCULAR HEMOGLOBIN 35.6 pg 25.6-32.2 H (BEAKER) (test code = 751) MEAN CORPUSCULAR HEMOGLOBIN CONC 34.8 GM/DL 32.2-35.5 (BEAKER) (test code = 752) RED CELL DISTRIBUTION WIDTH 15.4 % 11.7-14.4 H (BEAKER) (test code = 412) PLATELET COUNT (BEAKER) (test 102 K/CU MM 150-450 L code = 756) MEAN PLATELET VOLUME (BEAKER) 10.1 fL 9.4-12.3 (test code = 754) NUCLEATED RED BLOOD CELLS 0 /100 WBC 0-0 (BEAKER) (test code = 413) NEUTROPHILS RELATIVE PERCENT 75 % (BEAKER) (test code = 429) LYMPHOCYTES RELATIVE PERCENT 11 % (BEAKER) (test code = 430) MONOCYTES RELATIVE PERCENT 11 % (BEAKER) (test code = 431) EOSINOPHILS RELATIVE PERCENT 2 % (BEAKER) (test code = 432) BASOPHILS RELATIVE PERCENT 0 % (BEAKER) (test code = 437) NEUTROPHILS ABSOLUTE COUNT 5.63 K/ L 1.56-6.13 (BEAKER) (test code = 670) LYMPHOCYTES ABSOLUTE COUNT 0.85 K/ L 1.18-3.74 L (BEAKER) (test code = 414) MONOCYTES ABSOLUTE COUNT (BEAKER) 0.80 K/ L 0.24-0.36 H (test code = 415) EOSINOPHILS ABSOLUTE COUNT 0.17 K/ L 0.04-0.36 (BEAKER) (test code = 416) BASOPHILS ABSOLUTE COUNT (BEAKER) 0.02 K/ L 0.01-0.08 (test code = 417) IMMATURE GRANULOCYTES-RELATIVE 1 % 0-1 PERCENT (BEAKER) (test code = 2801) HEMOGLOBIN AND [id number] 06:32:00 Test Item Value Reference Range Interpretation Comments HEMOGLOBIN (BEAKER) (test code = 6.3 GM/DL 11.2-15.7 L 410) HEMATOCRIT (BEAKER) (test code = 18.3 % 34.1-44.9 L 411) 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 ID - [id number] GAS, [id number] 06:30:00 Test Item Value Reference Range Interpretation Comments PH ARTERIAL (BEAKER) (test code = 7.46 7.35-7.45 H 383) PCO2 ARTERIAL (BEAKER) (test code 32 mmHg 35-45 L = 384) PO2 ARTERIAL (BEAKER) (test code 92 mmHg 80-90 H = 385) O2 SATURATION ARTERIAL (BEAKER) 97.6 % 96.0-97.0 H (test code = 386) HCO3 ARTERIAL (BEAKER) (test code 23 mmol/L 21-29 = 388) BASE EXCESS ARTERIAL (BEAKER) -0.7 mmol/L -2.0-3.0 (test code = 387) PATIENT TEMPERATURE (BEAKER) 36.3 C (test code = 1818) FIO2 (BEAKER) (test code = 1819) 21.0 % CT, CHEST, WITHOUT [id number] 06:28:00Unlisted Reason for Exam - Click Yes and Enter Reason Below->YesUnlisted Reason for Exam->LIVER TRANSPLANT EVALUATIONFINAL REPORT EXAM: CT of the chest, without contrast CLINICAL HISTORY: Unlisted Reason for Exam. LIVER TRANSPLANT EVALUATION Technique: CT of the chest was performed without intravenous contrast administration. This exam was performed according to our departmental dose optimization program which includes automated exposure control, adjustment of the mA and/or kV according to patient's size and/or use of iterative reconstructive technique. COMPARISON: None FINDINGS: LOWER NECK: Within normal limits.AIRWAYS, PLEURA AND LUNGS: Patent central tracheobronchial tree. Mild upper lobe predominant centrilobular emphysema. Small left pleural effusion with associated compressive atelectasis. Mild right lower lobe dependent atelectasis. Calcified granuloma in the lingula. Tree-in-bud nodules in the left upper lobe and bilateral lower lobes, which may be infectious or inflammatory. No peripheral groundglass opacities to suggest COVID-19 pneumonia. No pneumothorax. VESSELS: Atherosclerotic calcific atherosclerotic aorta and coronary arteries..HEART: Normal heart size. Low-attenuation of the cardiac blood pool in keeping with anemia. No pericardial effusion.IGNACIA AND MEDIASTINUM: Calcified mediastinal lymph nodes from prior granulomatous disease.VISUALIZED UPPER ABDOMEN: Diffuse hepatic steatosis. Small right perihepatic ascites. Multiple calcifications in the pancreas in keeping with chronic pancreatitis. Calcified hepatic and splenic granulomas.SOFT TISSUES: Within normal limits.BONES: Within normal limits. IMPRESSION:Mild emphysema. Tree-in-bud nodular opacities in the left upper lobe and bilateral lower lobes, which may be infectious or inflammatory in etiology. Small left pleural effusion. No CT evidence of COVID- 19 pneumonia. Evidence of prior granulomatous disease. Diffuse hepatic steatosis. Small perihepatic ascites. 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 ID - [id number] AND [id number] 04:03:00 Test Item Value Reference Range Interpretation Comments HEMOGLOBIN (BEAKER) (test code = 6.2 GM/DL 11.2-15.7 L 410) HEMATOCRIT (BEAKER) (test code = 18.3 % 34.1-44.9 L 411) 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 ID - [id number]-1 PCR, [id number] 23:01:00 Test Item Value Reference Range Interpretation Comments HIV-1 RESULT HIV RNA not detected HIV RNA not detected COMPONENT (BEAKER) (test code = 2703) This test uses a Real-Time Polymerase Chain Reaction (RT-PCR) methodology to detect a highly conserved region of the HIV-1 gag gene and was performed using the [employer] AmpliPrep/DOMITILA TaqMan HIV-1 test kit version 2.0 ([employer]Reportable range for this assay is 20 - 10,000,000 copies per mL (1.3 - 7.0 Log copies/mL).INCUBATED 1:1 MIXING [id number] 18:31:00 Test Item Value Reference Range Interpretation Comments IMMEDIATE PT (BEAKER) 47.1 seconds 11.7-14.7 H (test code = 1487) IMMEDIATE PTT (BEAKER) 62.3 seconds 22.5-36.0 H (test code = 1488) IMMEDIATE 1:1 MIX PT 15.5 seconds 11.7-14.7 H (BEAKER) (test code = 9688874695) IMMEDIATE 1:1 MIX PTT 34.2 seconds 22.5-36.0 (BEAKER) (test code = 8086362116) 1:1 MIX, 1 HOUR INC PT 15.9 seconds (BEAKER) (test code = 1501) 1:1 MIX, 1 HOUR INC PTT 35.2 seconds (BEAKER) (test code = 1502) MIXING STUDY PATHOLOGIST negative incubated INTERPRETATION (BEAKER) inhibitor screen (test code = 8430520978) [id number] Jamil Alcantar M.D. (BEAKER) (test code = (electonic 2608) signature) RAD, MANDIBLE, MIN 4 [id number] 18:20:00Reason for exam:->LIVER TRANSPLANT EVALUATIONFINAL REPORT HISTORY: Liver transplant evaluation. COMPARISON: None FINDINGS:AP, lateral and oblique views of the mandible demonstrate no acute fracture or dislocation. No radiog raphically apparent bone lesions. The visualized portions of the cervical spine appear unremarkable.Prevertebral soft tissues are normal in thickness. Partially visualized lung apices are clear. IMPRESSION:No acute abnormality. Signed: Herman Vick MDReport Verified Date/Time: 01/26/2020 18:20:06 Reading Location: [address] Reading Room Electronically signed by: Geronimo MARTINEZ 01/26/2020 06:20 PMHIV-1 ANTIGEN WITH HIV-1/2 [id number] 18:17:00 Test Item Value Reference Range Interpretation Comments HIV-1 ANTIGEN WITH HIV 1\\T\\2 Nonreactive Nonreactive ANTIBODY (2) (BEAKER) (test code = 2586) 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 ID - DBRAD, CHEST, 2 [id number] 18:14:00Reason for exam:->LIVER TRANSPLANT EVALUATIONFINAL REPORT Exam: RAD, CHEST, 2 VIEWSDate: 01/26/2020 6:13 PM Indication: Liver transplant evaluation Comparison: None FINDINGS: Lines/Tubes:None Lungs:The lungs are well inflated. No focal consolidation or pulmonary edema. Left lung base subcentimeter calcified granuloma. Pleura:No pleural effusion. No pneumothorax. Heart/Mediastinum:The cardiomediastinal silhouette is normal in size and contour. Bones/Soft Tissues: No acute osseous injury. Abdomen: No free air below the diaphragm. IMPRESSION:No focal pneumonia or pulmonary edema. Signed: Herman Vick MDReport Verified Date/Time: 01/26/2020 18:14:45 Reading Location: [address] Transitional Reading Room HEMOGLOBIN AND [id number] 17:39:00 Test Item Value Reference Range Interpretation Comments HEMOGLOBIN (BEAKER) (test code = 6.8 GM/DL 11.2-15.7 L 410) HEMATOCRIT (BEAKER) (test code = 20.2 % 34.1-44.9 L 411) 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 ID - [id number] G (IGG)2020-01-26 16:41:00 Test Item Value Reference Range Interpretation Comments IMMUNOGLOBULIN G (IGG) (BEAKER) 909 mg/dL 540-1,822 (test code = 427) 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 ID - DBVITAMIN B12 AND [id number] 15:47:00 Test Item Value Reference Range Interpretation Comments VITAMIN B12 (BEAKER) (test code = > pg/mL 213-816 H 774) FOLATE (BEAKER) (test code = 362) 12.60 ng/mL >=7.00 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 ID - BSPET/CT, CARDIAC PERF REST AND [id number] 15:35:00Reason for exam:->LIVER TRANSPLANT EVALUATIONFINAL REPORT PROCEDURE: MYOCARDIAL PERFUSION PET/CT IMAGING (Rest/Stress)CPT CODE: 88209 INDICATION: Preoperative liver transplant evaluation CARDIOVASCULAR PROFILE:CAD History: NoneSymptoms: NoneRisk Factors: Tobacco useBMI: 16.9Medications: None STRESS PROTOCOL:Pharmacologic stress was achieved with a 10-second intravenous infusion of regadenoson 0.4 mg. The radiopharmaceutical was administered 30 seconds after the start of the regadenoson infusion. IMAGING PROTOCOL:Limited l ow-dose CT imaging was performed for attenuation correction. 39.2 mCi of Rb-82 chloride was injectedintravenously at rest, and gated PET images were obtained. Then, 39.1 mCi of Rb-82 chloride was injected intravenously at peak stress, and gated PET images were obtained. Image quality is good. REST FINDINGS:HR: 73/minBP: 118/66 mmHgPrelim. EKG: Normal sinus rhythm.Perfusion: Normal.Wall Motion: Normal (LVEF greater than 70%).LV Volume: Normal.RV Volume: Normal. STRESS FINDINGS:HR: 83/min (47% of MPHR)BP: 108/66 mmHgPrelim. EKG: No ischemic changes.Symptoms: None (treatment not required).Perfusion: Normal.Wall Motion: Normal (LVEF >70%).LV Volume: Not significantly changed from rest. IMPRESSION:1. Normal study.2. Normal myocardial perfusion. 3. Normal resting LVEF, which does not deteriorate with pharmacologic stress.4. Normal extracardiac tracer distribution.5. There is no prior study for comparison. Signed: Alisa Jones MDReppershing memorial hospital Verified Date/Time: 01/26/2020 15:35:51 Reading Location: [address] Reading Room MM, DIGITAL MAMMO, DIAGNOSTIC, BILATERAL INCLUDING [id number] 14:58:00Reason for exam:->LIVER TRANSPLANT EVALUATIONMRN#: [id number] - MM, DIGITAL MAMMO, DIAGNOSTIC, BILATERAL INCLUDING CAD BILATERAL DIGITAL DIAGNOSTIC MAMMOGRAM WITH CAD: 01/26/2020 No prior exams were available for comparison. The tissue of both breasts is heterogeneously dense. This may lower the sensitivity of mammography. Current studywas also evaluated with a Computer Aided Detection (CAD) system. Benign appearing calcifications are present in both breasts. No significant masses, calcifications, or other findings are seen in either breast. IMPRESSION: There is no mammographic evidence of malignancy. A 1 year screening mammogram is recommended. Juan Wiley M.D. pth/penrad:01/26/2020 14:58:04 Attending Technologist: TATA Kumari)(Rob), [facility] Normal Exam Mammogram BI-RADS: 2 Benign G0204 MEGALOVIRUS ANTIBODY, [id number] 14:25:00 Test Item Value Reference Range Interpretation Comments CYTOMEGALOVIRUS, IGG (BEAKER) Positive Negative, Equivocal A (test code = 3429) CMV IgG Result Interpretation: </= 0.8 Al Negative 0.9-1.0 Al Equivocal >/=1.1 Al PositiveCYTOMEGALOVIRUS ANTIBODY, [id number] 14:25:00 Test Item Value Reference Range Interpretation Comments CYTOMEGALOVIRUS IGM ANTIBODY Negative Negative, Equivocal (BEAKER) (test code = 3437) CMV IgM Result Interpretation: </= 0.8 Al Negative 0.9-1.0 Al Equivocal >/= 1.1 Al PositiveEBV ANTIBODY, [id number] 14:25:00 Test Item Value Reference Range Interpretation Comments ERICKA MAURO VIRAL CAPSID Positive Negative, Equivocal A ANTIGEN IGG (BEAKER) (test code = 3415) Ericka Mauro Viral Capsid Antigen IgG Result Interpretation: </= 0.8 Al Negative 0.9-1.0 Al Equivocal >/= 1.1 Al PositiveEBV ANTIBODY, IGM 2020-01-26 14:25:00 Test Item Value Reference Range Interpretation Comments ERICKA MAURO VIRAL CAPSID Negative Negative, Equivocal ANTIGEN IGM (BEAKER) (test code = 3418) Ericka Mauro Viral Capsid Antigen IgM Result Interpretation: </= 0.8 Al Negative 0.9-1.0 Al Equivocal >/= 1.1 Al PositiveVARICELLA ZOSTER ANTIBODY, [id number] 14:25:00 Test Item Value Reference Range Interpretation Comments VARICELLA ZOSTER IGG (AL) (BEAKER) 3.5 (test code = 3197) VARICELLA ZOSTER RESULT INTERPRETATIONS: <=0.8 Al Nonreactive: Presumed non-immune to VZV 0.9-1.0 Al Equivocal >=1.1 Al Reactive: Presumed immune to VZVRUBELLA ANTIBODY, [id number] 14:25:00 Test Item Value Reference Range Interpretation Comments RUBELLA IGG QUANTITATION ([facility]) 44.0 IU/mL <8.0 H (test code = 572) Rubella IgG Result Interpretation: </= 7.0 IU/mL Negative - Presumed non- immune 8.0 - 9.9 IU/mL Equivocal >= 10.0 IU/mL Positive - Presumed immune PERIPHERAL BLOOD SMEAR - PATHOLOGIST [id number] 13:29:00 Test Item Value Reference Range Interpretation Comments PERIPHERAL SMR REVIEW No circulating blasts. ([facility]) (test code = No significantly 6590) increased schistocytes. [id number] Nirajdwayne Boss, ([facility]) (test code = M.D.(electronic 9552) signature) CRYPTOCOCCAL [id number] 12:19:00 Test Item Value Reference Range Interpretation Comments CRYPTOCOCCAL ANTIGEN, SERUM Negative Negative, Interference ([facility]) (test code = 1828) [id number] 12:17:00 Test Item Value Reference Range Interpretation Comments RPR SCREEN ([facility]) (test code = Nonreactive Nonreactive 420) SARS-COV2/RT-PCR ([facility])2020-01-26 12:16:00 Test Item Value Reference Range Interpretation Comments SARS-COV2/RT-PCR (test Indeterminate Not Detected, Negative, A code = 8548272) See external report for linked test SARS-COV-[address] [facility] (test code = 2851823) Endogenous inhibition of PCR was detected in this sample; therefore, the results of this test were invalid. Interpret results with caution. Recommend submission of a second specimen for retesting.This SARS CoV-2 test is a rapid, real-time RT-PCR test intended for the qualitative detection of nucleicacid from SARS-CoV-2 in a nasopharyngeal swab specimen collected from individuals suspected of COVID-19 by their healthcare provider.This test has not been Food and Drug Administration (FDA) cleared orapproved. This is a modified version of an approved Emergency Use Authorization (EUA) and is in theprocess of review by the FDA. Once authorized by the FDA, the issued EUA will be effective until th e declaration that circumstances exist justifying the authorization of the emergency use of in vitrodiagnostic tests for detection and/or diagnosis of COVID-19 is terminated under Section 564(b)(2) ofthe Act or the EUA is revoked under Section 564(g) of the Act.Fact Sheet for Healthcare Providers:htt ps://www.[employer]/sites/default/files/product/documents/Fact_Sheet_HC_Provider c_Kpds_ACKV-AwC-9.pdfFact Sheet for Healthcare Patients:https://www.[employer]/sites/default/files/product/documents/Fact_ Rryzr_Tlvwfmic_Tkpc_OMPT-ZrD-3.pdfPerforming Laboratory:[facility] [facility].[place], [place] [address]GEQBIBD D, 90-[id number] 10:54:00 Test Item Value Reference Range Interpretation Comments VITAMIN D 25-OH (BEAKER) (test code 3.6 ng/mL 6.6-49.9 L = 2764) Effective 02/10/2017: Reference Range ChangeNew: 6.6-49.9 ng/mL Previous: 13.0-47.8 ng/mLRecommended Vitamin D Target Range: 30.0-40.0 ng/mLOperator ID - ANA MARÍA [id number] 10:38:00 Test Item Value Reference Range Interpretation Comments T4 TOTAL (BEAKER) (test code = 895) 4.9 ug/dL 4.9-11.7 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 ID - ANA MARÍA CPROTHROMBIN TIME/[id number] 10:22:00 Test Item Value Reference Range Interpretation Comments PROTIME (BEAKER) (test code = 37.6 seconds 11.9-14.2 H 759) INR (BEAKER) (test code = 370) 3.93 <=5.90 Effective 09/28/2018: PT Reference Range ChangeNew: 11.9-14.2 Previous: 11.7- 14.7RECOMMENDED COUMADIN/WARFARIN INR THERAPY RANGESSTANDARD DOSE: 2.0-3.0 Includes: PROPHYLAXIS for venous thrombosis, systemic embolization; TREATMENT for venous thrombosis and/or pulmonary embolus.HIGH RISK: Target INR is2.5-3.5 for patients wiht mechanical heart valves.[id number] 10:22:00 Test Item Value Reference Range Interpretation Comments PROTIME (BEAKER) (test code = 37.6 seconds 11.9-14.2 H 759) INR (BEAKER) (test code = 370) 3.93 <=5.90 PARTIAL THROMBOPLASTIN TIME 58.1 seconds 22.5-36.0 H (BEAKER) (test code = 760) Effective 09/28/2018: PT Reference Range ChangeNew: 11.9-14.2 Previous: 11.7- 14.7RECOMMENDED COUMADIN/WARFARIN INR THERAPY RANGESSTANDARD DOSE: 2.0-3.0 Includes: PROPHYLAXIS for venous thrombosis, systemic embolization; TREATMENT for venous thrombosis and/or pulmonary embolus.HIGH RISK: Target INR is2.5-3.5 for patients wiht mechanical heart valves.[id number] 09:39:00 Test Item Value Reference Range Interpretation Comments FERRITIN (BEAKER) (test code = 3857.37 ng/mL 5.00-275.00 H 361) 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 ID - ANA MARÍA [id number] 08:24:00 Test Item Value Reference Range Interpretation Comments MAGNESIUM (BEAKER) (test code = 2.2 mg/dL 1.6-2.6 627) 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 ID - ROBBY MHEMOGLOBIN [id number] 08:14:00 Test Item Value Reference Range Interpretation Comments HEMOGLOBIN A1C (BEAKER) (test code = 6.2 % 4.3-6.1 H 368) LIPID [id number] 08:03:00 Test Item Value Reference Range Interpretation Comments TRIGLYCERIDES (BEAKER) 268 mg/dL (test code = 540) CHOLESTEROL (BEAKER) 122 mg/dL (test code = 631) HDL CHOLESTEROL (BEAKER) < mg/dL (test code = 976) LDL CHOLESTEROL > mg/dL Unable to ca lculate CALCULATED (BEAKER) (test code = 633) Triglyceride Reference Range: Low Risk <150 Borderline 150-199 High Risk 200-499 Very High Risk >=500Cholesterol Reference Range: Low Risk <200 Borderline 200-239 High Risk >240HDL Cholesterol Reference Range: Low Risk >=60 High Risk <40LDL Cholesterol Reference Range: Optimal <100 Near Optimal 100-129 Borderline 130-159 High 160-189 Very High >=190 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 ID - EDASIOperator ID - ROBBY MOperator ID - EDASISpecimen slightly ictericHEPATITIS B SURFACE [id number] 07:40:00 Test Item Value Reference Range Interpretation Comments HEPATITIS B SURFACE ANTIBODY < mIU/mL <8.0 (BEAKER) (test code = 647) 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 ID - ROBBY MHEPATITIS A ANTIBODY, [id number] 07:11:00 Test Item Value Reference Range Interpretation Comments HEPATITIS A IGG ANTIBODY (BEAKER) Reactive Nonreactive A (test code = 2797) 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 ID - ROBBY MCARCINOEMBRYONIC ANTIGEN (CEA)2020-01-26 07:01:00 Test Item Value Reference Range Interpretation Comments CARCINOEMBRYONIC ANTIGEN (BEAKER) 8.6 ng/mL 0.0-5.0 H (test code = 685) 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 ID - ROBBY MALPHA FETOPROTEIN (AFP), TUMOR [id number] 07:01:00 Test Item Value Reference Range Interpretation Comments ALPHA-FETOPROTEIN (BEAKER) (test 3.7 ng/mL <10.0 code = 1094) 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 ID - ROBBY MHEPATITIS B SURFACE [id number] 06:59:00 Test Item Value Reference Range Interpretation Comments HEPATITIS B SURFACE ANTIGEN (2) Nonreactive Nonreactive (BEAKER) (test code = 2585) Specimen is considered negative for HBsAg.HEPATITIS B CORE ANTIBODY, IGM 2020-01-26 06:59:00 Test Item Value Reference Range Interpretation Comments HEPATITIS B CORE IGM ANTIBODY Nonreactive Nonreactive (BEAKER) (test code = 645) 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 ID - ROBBY MHEPATITIS A ANTIBODY, [id number] 06:59:00 Test Item Value Reference Range Interpretation Comments HEPATITIS A IGM ANTIBODY (BEAKER) Nonreactive Nonreactive (test code = 498) 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 ID - ROBBY MHEPATITIS B CORE ANTIBODY, [id number] 06:59:00 Test Item Value Reference Range Interpretation Comments HEPATITIS B CORE TOTAL ANTIBODY Nonreactive Nonreactive (BEAKER) (test code = 497) 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 ID - ROBBY [id number] 06:59:00 Test Item Value Reference Range Interpretation Comments THYROID STIMULATING HORMONE 0.131 uIU/mL 0.350-4.940 L (BEAKER) (test code = 772) 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 ID - ROBBY MVITAMIN D, [id number] 06:59:00 Test Item Value Reference Range Interpretation Comments VITAMIN D 25-OH (BEAKER) (test code 4.5 ng/mL 6.6-49.9 L = 2764) Effective 02/10/2017: Reference Range ChangeNew: 6.6-49.9 ng/mL Previous: 13.0-47.8 ng/mLRecommended Vitamin D Target Range: 30.0-40.0 ng/mLOperator ID - ROBBY MHEPATITIS C [id number] 06:56:00 Test Item Value Reference Range Interpretation Comments HEPATITIS C ANTIBODY (BEAKER) Nonreactive Nonreactive (test code = 367) 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 ID - ROBBY [id number] 06:34:00 Test Item Value Reference Range Interpretation Comments TRANSFERRIN (BEAKER) (test code = 73 mg/dL 174-382 L 541) 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 ID - ROBBY MSpecimen slightly ictericIRON, TIBC, % SAT. (WITHOUT FERRITIN)2020-01-26 06:34:00 Test Item Value Reference Range Interpretation Comments IRON (BEAKER) (test code = 547) 99.0 ug/dL 40.0-160.0 TOTAL IRON BINDING CAPACITY 91 ug/dL 250-450 L (BEAKER) (test code = 769) IRON % SATURATION (2) (BEAKER) 109 % 20-55 H (test code = 2590) 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 ID - ROBBY [id number] 06:34:00 Test Item Value Reference Range Interpretation Comments HAPTOGLOBIN (BEAKER) (test code = 135 mg/dL 14-258 366) 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 ID - ROBBY MCBC W/PLT COUNT & AUTO [id number] 05:26:00 Test Item Value Reference Range Interpretation Comments WHITE BLOOD CELL COUNT (BEAKER) 7.9 K/ L 3.5-10.5 (test code = 775) RED BLOOD CELL COUNT (BEAKER) 2.09 M/ L 3.93-5.22 L (test code = 761) HEMOGLOBIN (BEAKER) (test code = 7.3 GM/DL 11.2-15.7 L 410) HEMATOCRIT (BEAKER) (test code = 21.8 % 34.1-44.9 L 411) MEAN CORPUSCULAR VOLUME (BEAKER) 104.3 fL 79.4-94.8 H (test code = 753) MEAN CORPUSCULAR HEMOGLOBIN 34.9 pg 25.6-32.2 H (BEAKER) (test code = 751) MEAN CORPUSCULAR HEMOGLOBIN CONC 33.5 GM/DL 32.2-35.5 (BEAKER) (test code = 752) RED CELL DISTRIBUTION WIDTH 15.3 % 11.7-14.4 H (BEAKER) (test code = 412) PLATELET COUNT (BEAKER) (test 117 K/CU MM 150-450 L code = 756) MEAN PLATELET VOLUME (BEAKER) 9.9 fL 9.4-12.3 (test code = 754) NUCLEATED RED BLOOD CELLS 0 /100 WBC 0-0 (BEAKER) (test code = 413) NEUTROPHILS RELATIVE PERCENT 80 % (BEAKER) (test code = 429) LYMPHOCYTES RELATIVE PERCENT 9 % (BEAKER) (test code = 430) MONOCYTES RELATIVE PERCENT 8 % (BEAKER) (test code = 431) EOSINOPHILS RELATIVE PERCENT 2 % (BEAKER) (test code = 432) BASOPHILS RELATIVE PERCENT 0 % (BEAKER) (test code = 437) NEUTROPHILS ABSOLUTE COUNT 6.33 K/ L 1.56-6.13 H (BEAKER) (test code = 670) LYMPHOCYTES ABSOLUTE COUNT 0.71 K/ L 1.18-3.74 L (BEAKER) (test code = 414) MONOCYTES ABSOLUTE COUNT (BEAKER) 0.61 K/ L 0.24-0.36 H (test code = 415) EOSINOPHILS ABSOLUTE COUNT 0.16 K/ L 0.04-0.36 (BEAKER) (test code = 416) BASOPHILS ABSOLUTE COUNT (BEAKER) 0.02 K/ L 0.01-0.08 (test code = 417) IMMATURE GRANULOCYTES-RELATIVE 1 % 0-1 PERCENT (BEAKER) (test code = 2801) [id number] 05:23:00 Test Item Value Reference Range Interpretation Comments ALPHA-1 ANTITRYPSIN (BEAKER) 288.80 mg/dL 90.00-200.00 H (test code = 502) 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 ID - ROBBY [id number] 05:20:00 Test Item Value Reference Range Interpretation Comments ETHANOL (BEAKER) (test code = 400) < mg/dL <=10 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 ID - ROBBY MCOMPREHENSIVE METABOLIC [id number] 05:20:00 Test Item Value Reference Range Interpretation Comments TOTAL PROTEIN 5.3 gm/dL 6.0-8.3 L (BEAKER) (test code = 770) ALBUMIN (BEAKER) 2.7 g/dL 3.5-5.0 L (test code = 1145) ALKALINE PHOSPHATASE 337 U/L 40-150 H (BEAKER) (test code = 346) BILIRUBIN TOTAL 5.3 mg/dL 0.2-1.2 H (BEAKER) (test code = 377) SODIUM (BEAKER) (test 136 meq/L 136-145 code = 381) POTASSIUM (BEAKER) 2.8 meq/L 3.5-5.1 L (test code = 379) CHLORIDE (BEAKER) 98 meq/L 98-107 (test code = 382) CO2 (BEAKER) (test 20 meq/L 22-29 L code = 355) BLOOD UREA NITROGEN 29 mg/dL 7-21 H (BEAKER) (test code = 354) CREATININE (BEAKER) 0.69 mg/dL 0.57-1.25 (test code = 358) GLUCOSE RANDOM 90 mg/dL 70-105 (BEAKER) (test code = 652) CALCIUM (BEAKER) 7.8 mg/dL 8.4-10.2 L (test code = 697) AST (SGOT) (BEAKER) 765 U/L 5-34 H (test code = 353) ALT (SGPT) (BEAKER) 470 U/L 6-55 H (test code = 347) EGFR (BEAKER) (test 91 mL/min/1.73 ESTIMA KESHIA GFR IS code = 1092) sq m NOT ACCURATE CREATININE CLEARANCE IN PREDICTING GLOMERULAR FILTRATION RATE . ESTIMATED GFR I S NOT APPLICABLE FOR DIALYSIS PATIEN TS. 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 ID - EDASISpecimen slightly [id number] 05:17:00 Test Item Value Reference Range Interpretation Comments PHOSPHORUS (BEAKER) (test code = 2.0 mg/dL 2.3-4.7 L 604) 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 ID - EDASIURIC [id number] 05:17:00 Test Item Value Reference Range Interpretation Comments URIC ACID (BEAKER) (test code = 10.3 mg/dL 2.6-7.2 H 773) 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 ID - EDASISpecimen slightly ictericBILIRUBIN, [id number] 05:17:00 Test Item Value Reference Range Interpretation Comments BILIRUBIN DIRECT (BEAKER) (test 4.3 mg/dL 0.1-0.5 H code = 706) 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 ID - EDASILACTATE DEHYDROGENASE (LDH)2020-01-26 05:17:00 Test Item Value Reference Range Interpretation Comments LACTATE DEHYDROGENASE (BEAKER) (test 386 U/L 125-220 H code = 635) 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 ID - EDASIRETICULOCYTE [id number] 05:01:00 Test Item Value Reference Range Interpretation Comments RETICULOCYTE COUNT PCT (BEAKER) (test 2.2 % 0.5-1.7 H code = 575) 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 ID - [id number] AND [id number] 05:01:00 Test Item Value Reference Range Interpretation Comments HEMOGLOBIN (BEAKER) (test code = 7.3 GM/DL 11.2-15.7 L 410) HEMATOCRIT (BEAKER) (test code = 21.8 % 34.1-44.9 L 411) 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 ID - [id number] DEHYDROGENASE (LDH)2020-01-26 04:59:00 Test Item Value Reference Range Interpretation Comments LACTATE DEHYDROGENASE (BEAKER) (test 368 U/L 125-220 H code = 635) 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 ID - EDASICALCIUM, [id number] 04:28:00 Test Item Value Reference Range Interpretation Comments CALCIUM IONIZED (BEAKER) (test 1.09 mmol/L 1.12-1.27 L code = 698) PH, BLOOD (BEAKER) (test code = 7.35 1810) GAMMA GLUTAMYL TRANSFERASE (GGT)2020-01-25 19:20:00 Test Item Value Reference Range Interpretation Comments GAMMA GLUTAMYL TRANSFERASE (BEAKER) 988 U/L 9-64 H (test code = 364) 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 ID - DBSpecimen slightly ictericHEMOGLOBIN AND [id number] 17:37:00 Test Item Value Reference Range Interpretation Comments HEMOGLOBIN (BEAKER) (test code = 8.0 GM/DL 11.2-15.7 L 410) HEMATOCRIT (BEAKER) (test code = 23.6 % 34.1-44.9 L 411) 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 ID - [id number] (TEG)2020-01-25 14:29:00 Test Item Value Reference Range Interpretation Comments TEG ACTIVATED CLOTTING TIME 10.5 minutes 4.0-7.0 H (BEAKER) (test code = 1407) TEG FIBRINOGEN ACTIVITY (BEAKER) 65.1 degrees 61.0-73.0 (test code = 1408) TEG PLT. AGGREGATION (BEAKER) 63.0 MM 55.0-65.0 (test code = 1409) TEG FIBRINOLYSIS (BEAKER) (test 0.0 % 0.0-5.0 code = 1410) TGH ACTIVATED CLOTTING TIME 10.2 minutes 4.0-7.0 H (BEAKER) (test code = 1411) TGH FIBRINOGEN ACTIVITY (BEAKER) 59.2 degrees 61.0-73.0 L (test code = 1412) TGH PLT. AGGREGATION (BEAKER) 58.9 MM 55.0-65.0 (test code = 1413) TGH FIBRINOLYSIS (BEAKER) (test 0.0 % 0.0-5.0 code = 1414) [id number] 13:18:00 Test Item Value Reference Range Interpretation Comments PROTIME (BEAKER) (test code = > seconds 11.9-14.2 H 759) INR (BEAKER) (test code = 370) > <=5.90 HH PARTIAL THROMBOPLASTIN TIME 72.7 seconds 22.5-36.0 H (BEAKER) (test code = 760) Effective 09/28/2018: PT Reference Range ChangeNew: 11.9-14.2 Previous: 11.7- 14.7RECOMMENDED COUMADIN/WARFARIN INR THERAPY RANGESSTANDARD DOSE: 2.0-3.0 Includes: PROPHYLAXIS for venous thrombosis, systemic embolization; TREATMENT for venous thrombosis and/or pulmonary embolus.HIGH RISK: Target INR is2.5-3.5 for patients wiht mechanical heart valves.TROPONIN [id number] 13:10:00 Test Item Value Reference Range Interpretation Comments TROPONIN I (BEAKER) (test code = 0.12 ng/mL 0.00-0.03 H 397) Troponin I (TnI) levels must be interpreted in the context of the presenting symptoms and the clinical findings. Elevated TnI levels indicate myocardial damage, but are not specific for ischemic heart disease. Elevated TnI levels are seen in patients with other cardiac conditions (including myocarditis and congestive heart failure), and slight TnI elevations occur in patients with other conditions, including sepsis, renal failure, acidosis, acute neurological disease, and persistent tachyarrhythmia.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 ID - PIAYA LFIBRINOGEN 2020-01-25 13:02:00 Test Item Value Reference Range Interpretation Comments FIBRINOGEN LEVEL (BEAKER) (test 229 mg/dl 225-434 code = 658) [id number] 13:00:00 Test Item Value Reference Range Interpretation Comments D-DIMER QUANTITATIVE (BEAKER) 1.77 MG/L FEU <0.50 H (test code = 671) Intended Use: The D-Dimer Assay can be used to aid in the diagnosis of Deep Vein Thrombosis (DVT) and Pulmonary Embolism Disease (PED).In patients with low pre- test probability, various studies concerning STA Liatest D-dimer test have reported that with a cutoff value of 0.50 MG/L FEU, the Negative Predictive Value (NPV) regarding the exclusion of thrombosis is within 95-100% range. HEMOGLOBIN AND [id number] 12:41:00 Test Item Value Reference Range Interpretation Comments HEMOGLOBIN (BEAKER) (test code = 7.4 GM/DL 11.2-15.7 L 410) HEMATOCRIT (BEAKER) (test code = 21.5 % 34.1-44.9 L 411) 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 ID - [id number]/S, ABDOMINAL, WITH [id number] 10:17:00Reason for exam:->Transaminitis, elevated bilirubin and c/f gall bladder wall [facility] Grayscale ultrasound of the abdomen with color Doppler and spectral Doppler ultrasound of the portal/hepatic vasculature. INDICATION: 49-year-old woman with transaminitis. COMPARISON: None. FINDINGS: LIVER: Liver is prominent and measures 20.5 cm. Increased echogenicity of the liver, consistent with hepatic steatosis. No focal lesion. HEPATIC VASCULATURE: Main portal vein is prominent and measures 1.4 cm in diameter. Portal veins are patent with normal directionality. Flow velocity in the main portal vein is within normal limits. Hepatic arteries are patent. Slightly elevated resistive index in the proper hepatic artery measures 0.8. Normal resistiveindices in the right and left hepatic arteries. Hepatic veins and confluence are patent. BILIARY:Gallbladder: No gallstones or sludge. Gallbladder wall is thickened up to 0.5 cm. No pericholecystic fluid or gallbladder distention.Common bile duct measures 0.3 cm, within normal limits. No intrahepatic biliary ductal dilatation. PANCREAS: Visualized portions of the pancreas are unremarkable. SPLEEN: Spleen is normal in size and measures 9.8 cm. Subcentimeter echogenic foci scattered in the spleen may represent calcified granulomas. PERITONEUM: No free fluid. KIDNEYS: Both kidneys are normal in size. No hydronephrosis. No sonographically evident mass. MIDLINE VASCULATURE: Visualized inferior vena cava is patent. Maximum visualized aortic diameter is 2.3 cm. Splenic artery and vein are patent. IMPRESSION:Hepatic steatosis. No focal liver lesion. Patent portal and hepatic vasculature. Slightly elevated resistive index in the proper hepatic artery, a nonspecific finding which may be seen in the setting of liver disease. Nonspecific gallbladder wall thickening. Signed: Gwen Plasencia MDReport Verifi ed Date/Time: 01/25/2020 10:17:06 BASIC METABOLIC [id number] 09:07:00 Test Item Value Reference Range Interpretation Comments SODIUM (BEAKER) 131 meq/L 136-145 L (test code = 381) POTASSIUM (BEAKER) 3.6 meq/L 3.5-5.1 (test code = 379) CHLORIDE (BEAKER) 97 meq/L 98-107 L (test code = 382) CO2 (BEAKER) (test 16 meq/L 22-29 L code = 355) BLOOD UREA NITROGEN 34 mg/dL 7-21 H (BEAKER) (test code = 354) CREATININE (BEAKER) 0.70 mg/dL 0.57-1.25 (test code = 358) GLUCOSE RANDOM 86 mg/dL 70-105 (BEAKER) (test code = 652) CALCIUM (BEAKER) 7.4 mg/dL 8.4-10.2 L (test code = 697) EGFR (BEAKER) (test 90 mL/min/1.73 ESTIMA KESHIA GFR IS code = 1092) sq m NOT ACCURATE CREATININE CLEARANCE IN PREDICTING GLOMERULAR FILTRATION RATE . ESTIMATED GFR I S NOT APPLICABLE FOR DIALYSIS PATIEN TS. 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 ID Mónica BARRERA LSpecimen slightly [id number] 08:40:00 Test Item Value Reference Range Interpretation Comments MAGNESIUM (BEAKER) (test code = 1.8 mg/dL 1.6-2.6 627) 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 ID Mónica BARRERA LHEPATIC FUNCTION [id number] 08:40:00 Test Item Value Reference Range Interpretation Comments TOTAL PROTEIN (BEAKER) (test code = 4.9 gm/dL 6.0-8.3 L 770) ALBUMIN (BEAKER) (test code = 1145) 2.5 g/dL 3.5-5.0 L BILIRUBIN TOTAL (BEAKER) (test code 4.5 mg/dL 0.2-1.2 H = 377) BILIRUBIN DIRECT (BEAKER) (test 3.9 mg/dL 0.1-0.5 H code = 706) ALKALINE PHOSPHATASE (BEAKER) (test 284 U/L 40-150 H code = 346) AST (SGOT) (BEAKER) (test code = 1267 U/L 5-34 H 353) ALT (SGPT) (BEAKER) (test code = 532 U/L 6-55 H 347) 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 ID Mónica BULLARDpecimen slightly [id number] 08:40:00 Test Item Value Reference Range Interpretation Comments LIPASE (BEAKER) (test code = 749) 5 U/L 8-78 L 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 ID - HOLLY BULLARDpecimen slightly ictericTROPONIN [id number] 07:43:00 Test Item Value Reference Range Interpretation Comments TROPONIN I (BEAKER) (test code = 0.16 ng/mL 0.00-0.03 H 397) Troponin I (TnI) levels must be interpreted in the context of the presenting symptoms and the clinical findings. Elevated TnI levels indicate myocardial damage, but are not specific for ischemic heart disease. Elevated TnI levels are seen in patients with other cardiac conditions (including myocarditis and congestive heart failure), and slight TnI elevations occur in patients with other conditions, including sepsis, renal failure, acidosis, acute neurological disease, and persistent tachyarrhythmia.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 ID Mónica BARRERA LPROTHROMBIN [id number] 07:12:00 Test Item Value Reference Range Interpretation Comments PROTIME (BEAKER) (test code = 759) > seconds 11.9-14.2 H INR (BEAKER) (test code = 370) > <=5.90 HH Effective 09/28/2018: PT Reference Range ChangeNew: 11.9-14.2 Previous: 11.7- 14.7RECOMMENDED COUMADIN/WARFARIN INR THERAPY RANGESSTANDARD DOSE: 2.0-3.0 Includes: PROPHYLAXIS for venous thrombosis, systemic embolization; TREATMENT for venous thrombosis and/or pulmonary embolus.HIGH RISK: Target INR is2.5-3.5 for patients wiht mechanical heart valves.CBC W/PLT COUNT & AUTO [id number] 06:48:00 Test Item Value Reference Range Interpretation Comments WHITE BLOOD CELL COUNT (BEAKER) 8.9 K/ L 3.5-10.5 (test code = 775) RED BLOOD CELL COUNT (BEAKER) 2.20 M/ L 3.93-5.22 L (test code = 761) HEMOGLOBIN (BEAKER) (test code = 7.8 GM/DL 11.2-15.7 L 410) HEMATOCRIT (BEAKER) (test code = 22.9 % 34.1-44.9 L 411) MEAN CORPUSCULAR VOLUME (BEAKER) 104.1 fL 79.4-94.8 H (test code = 753) MEAN CORPUSCULAR HEMOGLOBIN 35.5 pg 25.6-32.2 H (BEAKER) (test code = 751) MEAN CORPUSCULAR HEMOGLOBIN CONC 34.1 GM/DL 32.2-35.5 (BEAKER) (test code = 752) RED CELL DISTRIBUTION WIDTH 15.2 % 11.7-14.4 H (BEAKER) (test code = 412) PLATELET COUNT (BEAKER) (test 113 K/CU MM 150-450 L code = 756) MEAN PLATELET VOLUME (BEAKER) 10.8 fL 9.4-12.3 (test code = 754) NUCLEATED RED BLOOD CELLS 0 /100 WBC 0-0 (BEAKER) (test code = 413) NEUTROPHILS RELATIVE PERCENT 89 % (BEAKER) (test code = 429) LYMPHOCYTES RELATIVE PERCENT 4 % (BEAKER) (test code = 430) MONOCYTES RELATIVE PERCENT 6 % (BEAKER) (test code = 431) EOSINOPHILS RELATIVE PERCENT 0 % (BEAKER) (test code = 432) BASOPHILS RELATIVE PERCENT 0 % (BEAKER) (test code = 437) NEUTROPHILS ABSOLUTE COUNT 7.92 K/ L 1.56-6.13 H (BEAKER) (test code = 670) LYMPHOCYTES ABSOLUTE COUNT 0.38 K/ L 1.18-3.74 L (BEAKER) (test code = 414) MONOCYTES ABSOLUTE COUNT (BEAKER) 0.51 K/ L 0.24-0.36 H (test code = 415) EOSINOPHILS ABSOLUTE COUNT 0.02 K/ L 0.04-0.36 L (BEAKER) (test code = 416) BASOPHILS ABSOLUTE COUNT (BEAKER) 0.01 K/ L 0.01-0.08 (test code = 417) IMMATURE GRANULOCYTES-RELATIVE 0 % 0-1 PERCENT (BEAKER) (test code = 0211)
[2021-06-23 22:03] LABS: Absolute Lymphocytes (CBC) 2.5 K/uL (0.7-4.9); Hematocrit 39.3 % (36.0-45.0); RBC Red Blood Cell Count 4.16 M/uL (3.86-4.86)
[2021-06-23 22:19] LABS: Albumin 4.2 g/dL (3.4-5.0); BUN Blood Urea Nitrogen 14 mg/dL (7-18); Bicarbonate 25 mmol/L (21-32); Glucose Level 147 mg/dL (74-106); Magnesium 1.8 mg/dL (1.8-2.4); Potassium 3.5 mmol/L (3.5-5.1); Sodium Level 138 mmol/L (136-145)
[2021-06-23 22:22] LABS: ALT/SGPT 50 U/L (12-78); Bilirubin Direct < 0.1 mg/dL (0-0.2); Bilirubin Total 0.2 mg/dL (0.2-1.0); Protein, Total 8.7 g/dL (6.4-8.2)
[2021-06-23 22:25] LABS: AST/SGOT 66 U/L (15-37); Alkaline Phosphatase 145 U/L (45-117); NT PRO-BNP 26 pg/mL (<125)
[2021-06-23 22:43] LABS: Protime INR 1.09
--- NOTE | 2021-06-23 23:18 | ER ---
Nurse's Notes [facility] Name: Elena Mcintyre Age: 51 yrs Sex: Female : 1970 Arrival Date: 06/23/2021 Time: 21:38 Bed 5 Private MD: Diagnosis: Chest pain, unspecified Presentation: 06/23 21:55 Chief complaint: EMS states: Chest pain that started this am. ASA 324 was given by EMS. st1 Coronavirus screen: Vaccine status: Patient reports being unvaccinated. Client denies travel out of the [place] in the last 14 days. Ebola Screen: No symptoms or risks identified at this time. Initial Sepsis Screen: Does the patient meet any 2 criteria? No. Patient's initial sepsis screen is negative. Risk Assessment: Do you want to hurt yourself or someone else? Patient reports no desire to harm self or others. Onset of symptoms was June 23, 2021. 21:55 Method Of Arrival: EMS: [facility] st1 21:55 Acuity: ROBE 3 st1 23:28 Initial Sepsis Screen: Does the patient have a suspected source of infection? No. sm5 Patient's initial sepsis screen is negative. Triage Assessment: 21:58 General: Appears in no apparent distress. uncomfortable, slender, unkempt, Behavior is st1 cooperative, agitated. Pain: Complains of pain in chest Pain does not radiate. Pain currently is 8 out of 10 on a pain scale. Cardiovascular: Reports chest pain. 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 Flu vaccine is not up to date. - Social history:: Smoking status: Patient reports the use of cigarette tobacco products, smokes one-half pack cigarettes per day, Patient uses alcohol, Patient/guardian denies using street drugs, IV drugs. Screenin:59 Abuse screen: Denies threats or abuse. Nutritional screening: No deficits noted. st1 Tuberculosis screening: No symptoms or risk factors identified. Fall Risk None identified. No fall in past 12 months (0 pts). No secondary diagnosis (0 pts). IV access (20 points). Ambulatory Aid- None/Bed Rest/Nurse Assist (0 pts). Gait- Normal/Bed Rest/Wheelchair (0 pts) Mental Status- Oriented to own ability (0 pts). Total García Fall Scale indicates No Risk (0-24 pts). Assessment: 22:01 Reassessment: Patient appears in no apparent distress at this time. Patient is alert, st1 oriented x 3, equal unlabored respirations, skin warm/dry/pink. Respiratory: No deficits noted. GI: No deficits noted. : No deficits noted. Musculoskeletal: No deficits noted. 23:27 Pain: Pain began this morning. sm5 Vital Signs: 21:55 BP 151 / 106; Pulse 113; Resp 20; Temp 98.0(O); Pulse Ox 98% on R/A; Weight 36.29 kg; st1 Height 4 ft. 9 in. (144.78 cm); Pain 8/10; 23:27 BP 143 / 86; Pulse 88; Resp 19; Pulse Ox 94% on R/A; sm5 21:55 Body Mass Index 17.31 (36.29 kg, 144.78 cm) st1 ED Course: 21:38 Patient arrived in ED. wm 21:41 Tra Coleman PA is PHCP. jr8 21:41 Rajiv Holm MD is Attending Physician. jr8 21:49 Basilia Chavez, RADHA is Primary Nurse. st1 21:50 Inserted saline lock: 20 gauge in right antecubital area, using aseptic technique. st1 21:57 Triage completed. st1 21:59 No provider procedures requiring assistance completed. Patient maintains SpO2 st1 saturation greater than 95% on room air. 21:59 Arm band placed on right wrist. st1 22:00 Patient has correct armband on for positive identification. Bed in low position. Call st1 light in reach. Side rails up X 1. sewing room supervisor on. Pulse ox on. NIBP on. Warm blanket given. Verbal reassurance given. 22:02 Protime (+INR) Sent. st1 22:46 XRAY Chest (1 view) In Process Unspecified. EDMS 23:17 Henrique Cabrera MD is Referral Physician. jr8 23:28 IV discontinued, intact, bleeding controlled, No redness/swelling at site. Pressure 5 dressing applied. Administered Medications: No medications were administered Outcome: 23:17 Discharge ordered by MD. moreno 23:28 Discharged to home ambulatory. [facility] 23:28 Condition: stable 23:28 Discharge instructions given to patient, Instructed on discharge instructions, follow up and referral plans. Demonstrated understanding of instructions, follow-up care. 23:28 Patient left the ED. 5 Signatures: Dispatcher [employer] EDMS Tra Coleman PA PA jr8 Perlita Larson Sarah, RN RN 5 Basilia Chavez RN RN st1 Corrections: (The following items were deleted from the chart) 22:01 22:00 Pain: Pain began gradually, st1 st 22:02 21:55 Chief complaint: EMS states: Chest pain that started this am st1 st1 23:27 23:27 Pain: Pain began 5 5
--- NOTE | 2021-06-23 23:19 | EDPHYS ---
Physician Documentation [facility] Name: Elena Mcintyre Age: 51 yrs Sex: Female : 1970 Arrival Date: 06/23/2021 Time: 21:38 Bed 5 Private MD: ED Physician Rajiv Holm HPI: 06/23 22:03 This 51 yrs old Female presents to ER via EMS with complaints of Chest Pain. jr8 22:03 The patient or guardian reports chest pain that is located primarily in the substernal jr8 area. Onset: acutely, this morning, today. The pain does not radiate. Associated signs and symptoms: The patient has no apparent associated signs or symptoms. The chest pain is described as dull, a pressure. Duration: The patient or guardian reports a single episode, that is still ongoing. Modifying factors: The symptoms are alleviated by nothing. the symptoms are aggravated by nothing. Severity of pain: At its worst the pain was moderate in the emergency department the pain is unchanged. It is unknown whether or not the patient has had similar symptoms in the past. The patient has not recently seen a physician. History of stents and ME in past . 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 Flu vaccine is not up to date. - Social history:: Smoking status: Patient reports the use of cigarette tobacco products, smokes one-half pack cigarettes per day, Patient uses alcohol, Patient/guardian denies using street drugs, IV drugs. ROS: 22:03 Eyes: Negative for injury, pain, redness, and discharge, ENT: Negative for injury, jr8 pain, and discharge, Neck: Negative for injury, pain, and swelling, Respiratory: Negative for shortness of breath, cough, wheezing, and pleuritic chest pain, Abdomen/GI: Negative for abdominal pain, nausea, vomiting, diarrhea, and constipation, Back: Negative for injury and pain, MS/Extremity: Negative for injury and deformity, Skin: Negative for injury, rash, and discoloration, Neuro: Negative for headache, weakness, numbness, tingling, and seizure. 22:03 Cardiovascular: Positive for chest pain, Negative for edema, orthopnea, palpitations, paroxysmal nocturnal dyspnea. Exam: 22:03 Constitutional: This is a well developed, well nourished patient who is awake, alert, jr8 and in no acute distress. Neck: Trachea midline, no thyromegaly or masses palpated, and no cervical lymphadenopathy. Supple, full range of motion without nuchal rigidity, or vertebral point tenderness. No Meningismus. Chest/axilla: Normal chest wall appearance and motion. Nontender with no deformity. No lesions are appreciated. Cardiovascular: Regular rate and rhythm with a normal S1 and S2. No gallops, murmurs, or rubs. Normal PMI, no JVD. No pulse deficits. Respiratory: Lungs have equal breath sounds bilaterally, clear to auscultation and percussion. No rales, rhonchi or wheezes noted. No increased work of breathing, no retractions or nasal flaring. Abdomen/GI: Soft, non-tender, with normal bowel sounds. No distension or tympany. No guarding or rebound. No evidence of tenderness throughout. Back: No spinal tenderness. No costovertebral tenderness. Full range of motion. Skin: Warm, dry with normal turgor. Normal color with no rashes, no lesions, and no evidence of cellulitis. MS/ Extremity: Pulses equal, no cyanosis. Neurovascular intact. Full, normal range of motion. Neuro: Awake and alert, GCS 15, oriented to person, place, time, and situation. Cranial nerves II-XII grossly intact. Motor strength 5/5 in all extremities. Sensory grossly intact. Vital Signs: 21:55 BP 151 / 106; Pulse 113; Resp 20; Temp 98.0(O); Pulse Ox 98% on R/A; Weight 36.29 kg; st1 Height 4 ft. 9 in. (144.78 cm); Pain 8/10; 23:27 BP 143 / 86; Pulse 88; Resp 19; Pulse Ox 94% on R/A; sm5 21:55 Body Mass Index 17.31 (36.29 kg, 144.78 cm) st1 MDM: 21:41 Patient medically screened. jr8 23:17 The patient was not given aspirin in the Emergency Department. Administered by EMS. 8 Data reviewed: vital signs, nurses notes, lab test result(s), EKG, radiologic studies, plain films. Data interpreted: Pulse oximetry: on room air is 98 %. Interpretation: normal. Counseling: I had a detailed discussion with the patient and/or guardian regarding: the historical points, exam findings, and any diagnostic results supporting the discharge/admit diagnosis, lab results, radiology results, the need for outpatient follow up, a forestry workers, to return to the emergency department if symptoms worsen or persist or if there are any questions or concerns that arise at home. 06/23 21:59 Order name: Basic Metabolic Panel; Complete Time: 22:27 EDMS 06/23 21:59 Order name: Liver (Hepatic) Function; Complete Time: 22:27 EDMS 06/23 21:59 Order name: Troponin High Sensitivity; Complete Time: 22:27 EDMS 06/23 21:59 Order name: NT PRO-BNP; Complete Time: 22:27 EDMS 06/23 21:59 Order name: Magnesium; Complete Time: 22:27 EDMS 06/23 21:59 Order name: CBC with Automated Diff EDMS 06/23 21:42 Order name: XRAY Chest (1 view) jr8 06/23 21:42 Order name: EKG; Complete Time: 22:17 jr8 06/23 21:42 Order name: Cardiac monitoring; Complete Time: 21:51 jr8 06/23 21:42 Order name: EKG - Nurse/Tech; Complete Time: 21:49 jr8 06/23 21:42 Order name: IV Saline Lock; Complete Time: 21:49 jr8 06/23 21:42 Order name: Labs collected and sent; Complete Time: 21:51 jr8 06/23 21:42 Order name: O2 Per Protocol; Complete Time: 21:49 jr8 06/23 21:42 Order name: O2 Sat Monitoring; Complete Time: 21:49 jr8 06/23 21:59 Order name: Protime (+INR); Complete Time: 22:45 EDMS 06/23 22:08 Order name: Manual Differential EDMS Administered Medications: No medications were administered Disposition: 06/24 00:56 Co-signature as Attending Physician, Rajiv Holm MD I agree with the assessment and kdr plan of care. Disposition Summary: 06/23/21 23:17 Discharge Ordered Location: Home [facility] Problem: new jr8 Symptoms: have improved jr8 Condition: Stable jr8 Diagnosis - Chest pain, unspecified jr8 Followup: jr8 - With: Henrique Cabrera MD - When: 2 - 3 days - Reason: Recheck today's complaints, Continuance of care, Re-evaluation by your physician Discharge Instructions: - Discharge Summary Sheet jr8 - Nonspecific Chest Pain, Adult jr8 Forms: - Medication Reconciliation Form jr8 - Thank You Letter jr8 - Antibiotic Education jr8 - Prescription Opioid Use jr8 Signatures: Dispatcher [employer] EDMS Rajiv Holm MD MD [facility] Tra Coleman PA PA jr8 Basilia Chavez RN RN st1 Idalia Henriquez PA PA sb3 Corrections: (The following items were deleted from the chart) 06/23 22:30 22:17 BASIC METABOLIC PANEL+C.LAB.BRZ ordered. EDMS EDMS 22:30 22:17 CBC+H.LAB.BRZ ordered. EDMS EDMS 22:30 22:17 HEPATIC FUNCTION+C.LAB.BRZ ordered. EDMS EDMS 22:30 22:17 MAGNESIUM+C.LAB.BRZ ordered. EDMS EDMS 22:30 22:17 PROBNP+C.LAB.BRZ ordered. EDMS EDMS 22:30 22:17 PROTIME (+INR)+COAG.LAB.BRZ ordered. EDMS EDMS 22:30 22:17 Troponin High Sensitivity+C.LAB.BRZ ordered. EDMS EDMS
[2021-06-23 23:38] LABS: Blood Morphology Comment NOT SEEN (NOT SEEN); Platelet Estimate ADEQ
[2021-06-24 01:22] VITALS: BP 143/86; TEMP 98; O2SAT 94
--- NOTE | 2021-06-24 07:23 | EKG ---
Test Date: 2021-06-23 Test Time: 21:45:13 Cloth Napping Supervisor: ROBERTO MEASUREMENT RESULTS: Intervals: Rate: 89 SD: 148 QRSD: 88 QT: 374 QTc: 455 [place]: P: 71 SD: 148 QRS: 44 T: 76 INTERPRETIVE STATEMENTS: Normal sinus rhythm Normal ECG Compared to ECG 01/24/2020 23:36:50 Myocardial infarct finding no longer present Electronically Signed On 06-24-21 07:22:30 PLANT OPERATIONS MANAGER by Henrique Cabrera
--- NOTE | 2021-06-24 08:31 | RAD REPORT ---
EXAM DESCRIPTION: RAD - Chest Single View - 06/23/2021 10:46 pm CLINICAL HISTORY: CHEST PAIN Chest pain. COMPARISON: Chest Single View dated 01/24/2020; CHEST SINGLE VIEW dated 02/15/2014 FINDINGS: Portable technique limits examination quality. The lungs are emphysematous but grossly clear. The heart is normal in size. No displaced fractures. IMPRESSION: Prominent emphysema.
== END 2021-06-23 23:28 | disposition home or self-care (01) ==
LOC: ER 21:37
DX: R07.9 Chest pain, unspecified (principal); I10 Essential (primary) hypertension; F17.210 Nicotine dependence, cigarettes, uncomplicated; Z88.5 Allergy status to narcotic agent
CPT/HCPCS: 36415; 71045; 80048; 80076; 83735; 83880; 84484; 85025; 85610; 93005; 99285